=== PATIENT | male | born 1935 | race Caucasian/White ===

== ENCOUNTER → 2016-10-11 | Outpatient (CLI) | payer OTHER ==
[~2016-10-11] MED LIST: ASPI81TA28 PO; ATOR-26 PO; CLOP1TAB15 PO; CPR250 PO; GLIP10TA10 PO; HYDR-4380 PO; METF-384 PO; METO50TA7 PO; PHEN-1042 PO
[2016-10-11 15:38] LABS: ALT/SGPT 150 U/L (12-78); BLOOD UREA NITROGEN 30 mg/dl (7-18); BUN/CREATININE RATIO 21.1 (10-20); CALCIUM 8.9 mg/dl (8.5-10.1); CARBON DIOXIDE 24 mmol/L (21-32); CHLORIDE 101 mmol/L (98-107); GLUCOSE 220 mg/dl (70-99); POTASSIUM 4.7 mmol/L (3.5-5.1); SODIUM 137 mmol/L (136-145)
[2016-10-11 15:43] LABS: ALKALINE PHOSPHATASE 82 U/L (45-117); AST/SGOT 193 U/L (15-37); PROSTATE SPECIFIC ANTIGEN 0.542 ng/ml (0.000-4.000)
== END | disposition home or self-care (01) ==
LOC: C.LAB 14:07
PROVIDERS: ATTEND Urology
DX: N20.1 Calculus of ureter (principal); N39.0 Urinary tract infection, site not specified; N40.1 Benign prostatic hyperplasia with lower urinary tract symptoms

== ENCOUNTER 2017-03-31 11:07 | Observation (INO) | payer OTHER ==
[~2017-03-31] VITALS: Ht 182.9 cm; Wt 81.8 kg
[2017-03-31] VITALS (7 sets, daily range): BP systolic 134–163; BP diastolic 76–89; PULSE 75–94; TEMP 36.3–36.6; O2SAT 93–96; Ht 182.9 cm; Wt 81.8 kg
[~2017-03-31 11:07] MED LIST changes: -CPR250 PO; -PHEN-1042 PO
[2017-03-31] MEDS ORDERED: ONDANSETRON INJ 2 MG/ML 2 ML VIAL IV STA (12:42)
[2017-03-31] MEDS ORDERED: SODIUM CHLORIDE 0.9% 1000ML 1,000 ML IV STA (12:42)
[2017-03-31 12:59] LABS: BASO % 0.3 %; BASO ABS # 0.03 K/uL (0-0.2); COMPLETE YES; EOS % 1.1 %; HEMATOCRIT 43.1 % (42-52); IG% 0.9 %; LYMPH % 9.4 %; LYMPH ABS # 0.82 K/uL (1.2-3.4); MEAN CELL VOLUME 93.3 fL (80-100); MEAN CORPUSCULAR HEMOGLOBIN 32.9 pg (25-34); MEAN CORPUSCULAR HGB CONC 35.3 g/dl (32-36); MEAN PLATELET VOLUME 10.1 fL (7.4-10.4); MONO % 14.4 %; NEUT % 73.9 %; PLATELET COUNT 309 K/uL (130-400); RED BLOOD COUNT 4.62 M/uL (4.7-6.1); WHITE BLOOD COUNT 8.74 K/uL (4.8-10.8)
[2017-03-31 13:09] LABS: ALT/SGPT 48 U/L (12-78); AST/SGOT 45 U/L (15-37); BLOOD UREA NITROGEN 33 mg/dl (7-18); BUN/CREATININE RATIO 13.6 (10-20); CALCIUM 9.1 mg/dl (8.5-10.1); CARBON DIOXIDE 23 mmol/L (21-32); CHLORIDE 102 mmol/L (98-107); GLUCOSE 119 mg/dl (70-99); POTASSIUM 4.7 mmol/L (3.5-5.1); SODIUM 133 mmol/L (136-145)
[2017-03-31 13:12] LABS: ALKALINE PHOSPHATASE 70 U/L (45-117)
[2017-03-31 13:31] LABS: URINE APPEARANCE CLEAR (CLEAR); URINE BILIRUBIN NEG (NEG); URINE COLOR DK YELLOW; URINE NITRITE POS (NEG); URINE SPECIFIC GRAVITY 1.019 (1.000-1.030); UROBILINOGEN NEG (NEG); ZZUR CULT IF INDIC CLEAN CATCH NO
--- NOTE | 2017-03-31 13:32 | DIAGNOSTIC IMAGING REPORT ---
[facility] CLINICAL HISTORY: Right flank pain. FINDINGS: 3 AP supine abdominal radiographs are compared to study dated 02/09/2016 and correlated with abdominal CT dated 03/18/2016. There is a nonobstructed abdominal bowel gas pattern noting moderate colonic fecal retention. There is no radiographic evidence of nephrolithiasis. A 3.3 cm calcified structure in the left upper quadrant is unchanged and likely represents a calcified peritoneal nodule when correlated with the 03/18/2016 CT scan. The skeletal structures are osteopenic. Moderate lumbosacral spondylosis is observed. Sclerotic change is noted in the pubic symphysis. A left hip arthroplasty is in place. IMPRESSION: 1. There is no radiographic evidence of nephrolithiasis. 2. Moderate constipation. Electronically signed by: Tyrell Pinto M.D. 03/31/2017 1:31 PM Dictated Date/Time: 03/31/2017 1:29 PM
[2017-03-31 13:33] LABS: MANUAL MICROSCOPIC REQUIRED? NO; REVIEW REQ? NO
--- NOTE | 2017-03-31 14:01 | DIAGNOSTIC IMAGING REPORT ---
ULTRASOUND KIDNEYS AND BLADDER CLINICAL HISTORY: Right flank pain. Reported history of ureteral calculus. COMPARISON STUDY: Abdominal CT dated 03/16/2016. TECHNIQUE: Real-time, grayscale, and color flow sonography of the kidneys and bladder is performed. Images are reviewed in the transverse and longitudinal planes. FINDINGS: Kidneys: The kidneys history cortical atrophy. The right kidney measures 12.6 x 7.0 x 6.8 cm and the left kidney measures 12.1 x 5.9 x 7.1 cm. There is moderate right-sided hydronephrosis. No left-sided hydronephrosis is seen. A 10 mm echogenic shadowing focus in the upper pole of the left kidney likely represents a nonobstructing calculus. There is no sonographic evidence of contour deforming renal mass lesion. No perinephric fluid is identified. Bladder: The bladder is decompressed and grossly unremarkable. Only the left ureteral jet was seen. IMPRESSION: 1. There is moderate right-sided hydronephrosis. A right ureteral jet was not seen, and this is likely related to an obstructing ureteral calculus. The stone was not visualized by ultrasound. 2. There is no left-sided hydronephrosis. 3. A nonobstructing left renal calculus is suggested. 4. The bladder was decompressed and grossly unremarkable. Electronically signed by: Tyrell Pinto M.D. 03/31/2017 1:59 PM Dictated Date/Time: 03/31/2017 1:52 PM
--- NOTE | 2017-03-31 14:36 | EMERGENCY ROOM VISIT NOTE ---
History Report prepared by Nelia: Tracy Ulloa Under the Supervision of: Dr. Mariia Mercer M.D. First contact with patient: 12:37 Chief Complaint: KIDNEY STONE Stated Complaint: KIDNEY STONES History of Present Illness The patient is a 81 year old male who presents to the Emergency Room with complaints of worsening right sided abdominal pain secondary to kidney stones for the past 5 days. The patient was evaluated in the ER at [facility] 5 days ago. He had a CT scan at this time and was diagnosed with bilateral kidney stones and a kidney stone in his bladder. He was discharged home with oral pain medication, which he states has not been helping. The patient has had intermittent nausea and vomiting for the past 3 days. He reports pain in his right flank that radiates into his right side and right abdomen. He rates his current pain as a 5/10 in severity. Laying still helps to alleviate some of his pain. He called his urologist this morning with his symptoms and was told to come to the ED for further evaluation. The patient denies any fevers. Source of History: patient Onset: 5 days ago Position: abdomen (right sided) Symptom Intensity: 5/10 Timing: worsening Modifying Factors (Relieving): other (laying still) Associated Symptoms: + nausea, + vomiting, No fevers Review of Systems See HPI for pertinent positives & negatives. A total of 10 systems reviewed and were otherwise negative. Past Medical & Surgical Medical Problems: (1) Gout, unspecified (2) Type 2 diabetes mellitus without complications Family History Diabetes mellitus Kidney disease Kidney stones Social History Smoking Status: Never Smoker Smokeless Tobacco Use: No Alcohol Use: none Marital Status: Housing Status: lives with significant other Occupation Status: retired Current/Historical Medications Scheduled Aspirin (Aspirin Ec), 81 MG PO QAM Ciprofloxacin (Ciprofloxacin HCl), 250 MG PO BID Clopidogrel (Plavix), 75 MG PO QAM Glipizide (Glipizide), 1 TAB PO DAILY Scheduled PRN Phenazopyridine HCl (Phenazopyridine HCl), 100 MG PO TID PRN for Bladder pain Allergies Coded Allergies: No Known Allergies (Unverified , 07/08/16) Physical Exam Vital Signs Date Time Temp Pulse Resp B/P (MAP) Pulse Ox O2 Delivery O2 Flow Rate FiO2 03/31/17 14:23 78 18 134/75 96 Room Air 03/31/17 12:57 80 18 125/74 95 Room Air 03/31/17 11:26 36.4 89 20 112/72 95 Room Air Physical Exam Vital signs reviewed. General: Well-appearing elderly male, in no significant distress. HEENT: No scleral icterus, PERRLA, neck supple. Atraumatic. Cardiovascular: Regular rate and rhythm, no extra sounds. Pulmonary: Clear to auscultation bilaterally, normal work of breathing. Abdomen: Soft, nontender, nondistended, positive bowel sounds. No CVA tenderness Musculoskeletal: Atraumatic, no peripheral edema. Neurologic: Patient awake alert and oriented x 3, full strength in all 4 extremities. Cranial nerves 2 through 12 grossly intact. Skin: Warm, dry, no rash Medical Decision & Procedures ER Provider Diagnostic Interpretation: Radiology results as stated below per my review and radiologist interpretation: ULTRASOUND KIDNEYS AND BLADDER CLINICAL HISTORY: Right flank pain. Reported history of ureteral calculus. COMPARISON STUDY: Abdominal CT dated 03/16/2016. TECHNIQUE: Real-time, grayscale, and color flow sonography of the kidneys and bladder is performed. Images are reviewed in the transverse and longitudinal planes. FINDINGS: Kidneys: The kidneys history cortical atrophy. The right kidney measures 12.6 x 7.0 x 6.8 cm and the left kidney measures 12.1 x 5.9 x 7.1 cm. There is moderate right-sided hydronephrosis. No left-sided hydronephrosis is seen. A 10 mm echogenic shadowing focus in the upper pole of the left kidney likely represents a nonobstructing calculus. There is no sonographic evidence of contour deforming renal mass lesion. No perinephric fluid is identified. Bladder: The bladder is decompressed and grossly unremarkable. Only the left ureteral jet was seen. IMPRESSION: 1. There is moderate right-sided hydronephrosis. A right ureteral jet was not seen, and this is likely related to an obstructing ureteral calculus. The stone was not visualized by ultrasound. 2. There is no left-sided hydronephrosis. 3. A nonobstructing left renal calculus is suggested. 4. The bladder was decompressed and grossly unremarkable. Electronically signed by: Tyrell Pinto M.D. 03/31/2017 1:59 PM Dictated Date/Time: 03/31/2017 1:52 PM [facility] CLINICAL HISTORY: Right flank pain. FINDINGS: 3 AP supine abdominal radiographs are compared to study dated 02/09/2016 and correlated with abdominal CT dated 03/18/2016. There is a nonobstructed abdominal bowel gas pattern noting moderate colonic fecal retention. There is no radiographic evidence of nephrolithiasis. A 3.3 cm calcified structure in the left upper quadrant is unchanged and likely represents a calcified peritoneal nodule when correlated with the 03/18/2016 CT scan. The skeletal structures are osteopenic. Moderate lumbosacral spondylosis is observed. Sclerotic change is noted in the pubic symphysis. A left hip arthroplasty is in place. IMPRESSION: 1. There is no radiographic evidence of nephrolithiasis. 2. Moderate constipation. Electronically signed by: Tyrell Pinto M.D. 03/31/2017 1:31 PM Dictated Date/Time: 03/31/2017 1:29 PM Laboratory Results Test 03/31/17 11:55 03/31/17 13:10 Immature Granulocyte % (Auto) 0.9 % White Blood Count 8.74 K/uL (4.8-10.8) Red Blood Count 4.62 M/uL (4.7-6.1) Hemoglobin 15.2 g/dL (14.0-18.0) Hematocrit 43.1 % (42-52) Mean Corpuscular Volume 93.3 fL (80-100) Mean Corpuscular Hemoglobin 32.9 pg (25-34) Mean Corpuscular Hemoglobin Concent 35.3 g/dl (32-36) Platelet Count 309 K/uL (130-400) Mean Platelet Volume 10.1 fL (7.4-10.4) Neutrophils (%) (Auto) 73.9 % Lymphocytes (%) (Auto) 9.4 % Monocytes (%) (Auto) 14.4 % Eosinophils (%) (Auto) 1.1 % Basophils (%) (Auto) 0.3 % Neutrophils # (Auto) 6.45 K/uL (1.4-6.5) Lymphocytes # (Auto) 0.82 K/uL (1.2-3.4) Monocytes # (Auto) 1.26 K/uL (0.11-0.59) Eosinophils # (Auto) 0.10 K/uL (0-0.5) Basophils # (Auto) 0.03 K/uL (0-0.2) Immature Granulocyte # (Auto) 0.08 K/uL (0.00-0.02) Total Bilirubin 0.7 mg/dl (0.2-1) Direct Bilirubin 0.2 mg/dl (0-0.2) Aspartate Amino Transf (AST/SGOT) 45 U/L (15-37) Alanine Aminotransferase (ALT/SGPT) 48 U/L (12-78) Alkaline Phosphatase 70 U/L (45-117) Total Protein 7.4 gm/dl (6.4-8.2) Albumin 3.4 gm/dl (3.4-5.0) Urine Color DK YELLOW Urine Appearance CLEAR (CLEAR) Urine pH 5.0 (4.5-7.5) Urine Specific [place] 1.019 (1.000-1.030) Urine Protein TRACE (NEG) Urine Glucose (UA) 2+ (NEG) Urine Ketones NEG (NEG) Urine Occult Blood 1+ (NEG) Urine Nitrite POS (NEG) Urine Bilirubin NEG (NEG) Urine Urobilinogen NEG (NEG) Urine Leukocyte Esterase NEG (NEG) Urine WBC (Auto) 1-5 /hpf (0-5) Urine RBC (Auto) 0-4 /hpf (0-4) Urine Hyaline Casts (Auto) 1-5 /lpf (0-5) Urine Epithelial Cells (Auto) 5-10 /lpf (0-5) Urine Bacteria (Auto) NEG (NEG) Laboratory results per my review. Medications Administered Medications (Trade) Dose Ordered Sig/Juanpablo Route Start Time Stop Time Status Last Admin Dose Admin Sodium Chloride 1,000 ml @ 125 mls/hr Q8H STAT IV 03/31/17 12:42 03/31/17 17:53 DC 03/31/17 12:59 125 MLS/HR Ondansetron HCl (Zofran Inj) 4 mg NOW STAT IV 03/31/17 12:42 03/31/17 12:44 DC 03/31/17 12:54 4 MG ED Course 1237: Past medical records reviewed. The patient was evaluated in room B2. A complete history and physical examination was performed. 1242: Zofran 4 mg IV, NSS 1000 ml @ 125 mls/hr IV 1411: I reassessed the patient at this time. He is feeling better and resting comfortably. I discussed the results and treatment plan with the patient. I answered all pertaining questions that he had. He expressed understanding and verbalized agreement. 1420: I spoke with Dr. Nunez. We discussed the patients case. The patient will be evaluated by the [facility]ist Group for further management. Medical Decision Differential diagnosis: Etiologies such as renal colic, appendicitis, diverticulitis, mesenteric ischemia, aortic pathology, infections, inflammatory bowel disease, PUD, biliary pathology, UTI, as well as others were entertained. This patient was evaluated and appeared to be in no significant distress. IV access was obtained and laboratory work was drawn. Patient was hydrated with normal saline solution, given IV Zofran for nausea. Patient has had some ongoing discomfort and will require urologic evaluation. He does have an acute renal insufficiency. UA is negative for infection. Ultrasound of the retroperitoneum reveals moderate right-sided hydronephrosis. CT scan of the abdomen and pelvis performed as an outpatient at another facility earlier in the week reveals an 8 mm calculus. This is not identified on ultrasound today however the absence of a ureteral jet is suspicious for a stone. Given the above findings, the patient will be evaluated by the hospitalist service for admission and urologic evaluation. Medication Reconcilliation Current Medication List: was personally reviewed by me Blood Pressure Screening Patient's blood pressure: Normal blood pressure Consults Time Called: 1417 Consulting Physician: Dr. Nunez Returned Call: [address] Nunez. We discussed the patients case. The patient will be evaluated by the [facility]ist Group for further management. Impression Primary Impression: Ureteral calculus Additional Impressions: Urinary tract obstruction by kidney stone Acute renal insufficiency Scribe Attestation The scribe's documentation has been prepared under my direction and personally reviewed by me in its entirety. I confirm that the note above accurately reflects all work, treatment, procedures, and medical decision making performed by me. Departure Information Dispostion Being Evaluated By Hospitalist Prescriptions Phenazopyridine HCl (Phenazopyridine HCl) 100 Mg Tab 100 MG PO TID Y for Bladder pain for 2 Days, #6 TAB Prov: Nickolas Jones MD 04/02/17 Ciprofloxacin (Ciprofloxacin HCl) 250 Mg Tab 250 MG PO BID for 2 Days, #4 TAB Prov: Nickolas Jones MD 04/02/17 Referrals Guillermo Pickens M.D. (PCP) Patient Instructions My [facility] Problem Qualifiers
[2017-03-31] MEDS ORDERED: POLYETHYLENE (MIRALAX) 17 GM PACK PO PRN (15:15)
[2017-03-31] MEDS ORDERED: ONDANSETRON INJ 2 MG/ML 2 ML VIAL IV PRN ×2 (15:15→16:30)
[2017-03-31] MEDS ORDERED: ACETAMINOPHEN 325 MG TAB PO PRN (15:15)
--- NOTE | 2017-03-31 15:37 | Urology Consultation ---
History General Date of Service: Mar 31, 2017. Chief Complaint: Bilateral flank pain Primary Care Physician: Guillermo Pickens M.D. Pt seen a urologist before?: Yes If yes, why?: Dr. Finney for stone, uric acid stone HPI - Stones Number: 4 Size: right 8 mm ureteral stone, Location: left, UPJ Pain: left flank, right flank Patient has: + nausea, + emesis, + gross hematuria, + hydronephrosis Prior stone composition: uric acid Additional Comments: 81 yo male in [facility] ER due to worsening flank pain, left to right over the course of the past month. He notes he has been feeling worse and worse, presented to [facility] ER on Monday. CT scan done at that time shows a R 8 mm UPJ stone and bilateral large renal stones, up to 12 mm in size. His culture at the time also is positive for 100K E. Coli. He was placed on Cipro which he has been taking since Monday. His reports from [facility] are reviewed. He notes he feels relatively well, denies fevers currently. and daughter in room. Imaging Imaging: CT, [facility], Ultrasound Laboratory Last 24 Hours Test 03/31/17 11:55 03/31/17 13:10 White Blood Count 8.74 K/uL Red Blood Count 4.62 M/uL Hemoglobin 15.2 g/dL Hematocrit 43.1 % Mean Corpuscular Volume 93.3 fL Mean Corpuscular Hemoglobin 32.9 pg Mean Corpuscular Hemoglobin Concent 35.3 g/dl Platelet Count 309 K/uL Mean Platelet Volume 10.1 fL Neutrophils (%) (Auto) 73.9 % Lymphocytes (%) (Auto) 9.4 % Monocytes (%) (Auto) 14.4 % Eosinophils (%) (Auto) 1.1 % Basophils (%) (Auto) 0.3 % Neutrophils # (Auto) 6.45 K/uL Lymphocytes # (Auto) 0.82 K/uL Monocytes # (Auto) 1.26 K/uL Eosinophils # (Auto) 0.10 K/uL Basophils # (Auto) 0.03 K/uL RDW Standard Deviation 49.1 fL RDW Coefficient of Variation 14.5 % Immature Granulocyte % (Auto) 0.9 % Immature Granulocyte # (Auto) 0.08 K/uL Sodium Level 133 mmol/L Potassium Level 4.7 mmol/L Chloride Level 102 mmol/L Carbon Dioxide Level 23 mmol/L Anion Gap 8.0 mmol/L Blood Urea Nitrogen 33 mg/dl Creatinine 2.40 mg/dl Estimated GFR () 28.7 Estimated GFR (Non- 24.7 BUN/Creatinine Ratio 13.6 Random Glucose 119 mg/dl Calcium Level 9.1 mg/dl Total Bilirubin 0.7 mg/dl Direct Bilirubin 0.2 mg/dl Aspartate Amino Transf (AST/SGOT) 45 U/L Alanine Aminotransferase (ALT/SGPT) 48 U/L Alkaline Phosphatase 70 U/L Total Protein 7.4 gm/dl Albumin 3.4 gm/dl Urine Color DK YELLOW Urine Appearance CLEAR Urine pH 5.0 Urine Specific [place] 1.019 Urine Protein TRACE Urine Glucose (UA) 2+ Urine Ketones NEG Urine Occult Blood 1+ Urine Nitrite POS Urine Bilirubin NEG Urine Urobilinogen NEG Urine Leukocyte Esterase NEG Urine WBC (Auto) 1-5 /hpf Urine RBC (Auto) 0-4 /hpf Urine Hyaline Casts (Auto) 1-5 /lpf Urine Epithelial Cells (Auto) 5-10 /lpf Urine Bacteria (Auto) NEG Problem List Medical Problems: (1) Acute renal insufficiency Status: Acute (2) Ureteral calculus Status: Acute (3) Urinary tract obstruction by kidney stone Status: Acute Past History BPH, diabetes, diverticulosis, kidney stones, renal disease, urinary tract infection Past Surgical History: colonoscopy, shoulder replacement, THR, ureteral stent, other (hernia repair, shouder surgery, hip surgery) Family History Diabetes mellitus Kidney disease Kidney stones Social History Hx Tobacco Use In Past Year?: No (quit 50 years ago) Smoking: quit greater than 1 year Alcohol: no current use Marital status: Occupation status: retired Allergies Coded Allergies: No Known Allergies (Unverified , 07/08/16) Medications Home Medications: Home Meds and Scripts Medications Dose Route/Sig Max Daily Dose Days Date Category Dose Instructions Glucophage (Metformin Hcl) Unknown Strength Tab 1 Tab PO BID 06/28/16 Reported Glipizide Unknown Strength Tab 1 Tab PO DAILY 06/28/16 Reported Plavix (Clopidogrel Bisulfate) 75 Mg Tab 75 Mg PO QAM 02/04/16 Reported ON HOLD FOR 7 DAYS PRIOR Aspirin Ec (Aspirin) 81 Mg Tab 81 Mg PO QAM 02/04/16 Reported Inpatient Medications: Current Inpatient Medications Medications (Trade) Dose Ordered Sig/Juanpablo Route Start Time Stop Time Status Last Admin Dose Admin Sodium Chloride 1,000 ml @ 125 mls/hr Q8H STAT IV 03/31/17 12:42 03/31/17 20:41 03/31/17 12:59 125 MLS/HR Acetaminophen (Tylenol Tab) 650 mg Q4H PRN PO 03/31/17 15:15 04/30/17 15:14 Polyethylene (Miralax Powder Packet) 17 gm DAILY PRN PO 03/31/17 15:15 04/30/17 15:14 UNV Ondansetron HCl (Zofran Inj) 4 mg Q6H PRN IV 03/31/17 15:15 04/30/17 15:14 UNV Review of Systems Review of Systems Constitutional: No fever, No chills Eyes: No double vision, No eye pain Endocrine: + excessive thirst Gastrointestinal: + abdominal pain, + nausea, + vomiting Cardiovascular: No irregular heartbeat Respiratory: No shortness of breath, No wheezing Skin: No boils, No dry skin Musculoskeletal: + back pain Ears / Nose / Throat: No hearing loss Male : + see HPI, + kidney stones Physical Exam Vital Signs: Vital Signs Past 12 Hours Date Time Temp Pulse Resp B/P (MAP) Pulse Ox O2 Delivery O2 Flow Rate FiO2 03/31/17 14:23 78 18 134/75 96 Room Air 03/31/17 12:57 80 18 125/74 95 Room Air 03/31/17 11:26 36.4 89 20 112/72 95 Room Air Physical Exam: General Appearance: WD/WN, no apparent distress ENT: normal ENT inspection, hearing grossly normal Neck: supple, no adenopathy Respiratory/Chest: no respiratory distress, no accessory muscle use Cardiovascular: no JVD Gastrointestinal: Abdomen: normal abdomen Bladder: normal bladder Renal: cva tenderness (right) Liver: normal liver Spleen: normal spleen Extremities: non-tender Neurologic/Psychiatric: alert, oriented x 3 Skin: normal color Assessment & Plan Assessment & Plan Treatment Planned: cystoscopy w/ stent A/P 81 yo male with renal failure, radiolucent likely uric acid stones, history of UTI. Seen the possibility of an incompletely treated infection as well as his ongoing colic and renal failure, will proceed with a cystoscopy and stent placement for decompression of his right kidney. Despite his complaints of left flank pain, no hydro was present on either CT scan in [facility] per report or on his current renal US. Findings c/w patient and , consent obtained .Will cover with Cipro 200 mg. Will arrange for short term f/u with Dr. Finney in office - will likely need either medical dissolution of his stone or endoscopic management seen the radiolucent nature of his stone. [facility], likely can discharged tomorrow if his Cr improves and he responds clinically.
--- NOTE | 2017-03-31 15:51 | History and Physical ---
History & Physical Date & Time of Service: Mar 31, 2017 at 15:16 Chief Complaint: Kidney Stones Primary Care Physician: Guillermo Pickens M.D. History of Present Illness Source: patient, family, hospital records Patient is a pleasant 81 yo male who presented to the ER today for complaints of right abdominal pain, and nausea/vomiting. He reports his symptoms first began about 1 month ago with left flank pain, but became worse on Monday when he started to have hematuria and stated the pain was worse. He went to the [place] [facility] where they performed a CT abdomen and pelvis which found an 8 mm stone at the right UPJ but no hydronephrosis. He reports he did have painful urination on Monday and Monday, and also felt that his urine stream was getting abruptly cut off and he had difficulty voiding completely, but this issue has not occurred since. He has continued to have N/V since Monday. He states he feels some relief since being in the ER and laying still. 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 He last ate at 7 AM and had emesis of his breakfast right afterwards. Past Medical/Surgical History Medical Problems: (1) Gout, unspecified Status: Resolved (2) Type 2 diabetes mellitus without complications Status: Chronic Family History Diabetes mellitus Kidney disease Kidney stones Social History Smoking Status: Never Smoker Smokeless Tobacco Use: No Alcohol Use: occasionally Marital Status: Housing status: lives with family Occupational Status: employed, retired Allergies Coded Allergies: No Known Allergies (Unverified , 07/08/16) Home Medications Scheduled Aspirin (Aspirin Ec), 81 MG PO QAM Clopidogrel (Plavix), 75 MG PO QAM Glipizide (Glipizide), 1 TAB PO DAILY Metformin Hcl (Glucophage), 1 TAB PO BID Review of Systems Constitutional: No fever, No chills, No sweats, No weight loss, No fatigue Eyes: No worsening of vision, No redness, No discharge, No diplopia ENT: No hearing loss, No nasal symptoms, No sore throat, No tinnitus Respiratory: No cough, No sputum, No shortness of breath, No dyspnea on exertion Cardiovascular: No chest pain, No edema, No claudication, No palpitations Abdomen: + pain, + nausea, + vomiting, No diarrhea Musculoskeletal: No joint pain, No swelling, No calf pain, No problem reported Genitourinary - Male: + hematuria, + dysuria, + urinary frequency, + urinary hesitancy Psychiatric: No depression symptoms, No anxiety, No substance abuse, No problem reported Hematologic / Lymphatic: No problem reported Integumentary: No problem reported Physical Exam Vital Signs Date Time Temp Pulse Resp B/P (MAP) Pulse Ox O2 Delivery O2 Flow Rate FiO2 03/31/17 14:23 78 18 134/75 96 Room Air 03/31/17 12:57 80 18 125/74 95 Room Air 03/31/17 11:26 36.4 89 20 112/72 95 Room Air General Appearance: WD/WN, no apparent distress Head: normocephalic, atraumatic Eyes: PERRL, EOMI, sclerae normal ENT: hearing grossly normal Neck: supple, no JVD, no carotid bruits, trachea midline Respiratory/Chest: chest non-tender, lungs clear, normal breath sounds, no respiratory distress Cardiovascular: regular rate, rhythm, no edema, no JVD, no murmur, normal peripheral pulses Abdomen/GI: normal bowel sounds, non tender, soft, no organomegaly Back: normal range of motion, + right CVA tenderness Extremities/Musculoskelatal: no calf tenderness, normal capillary refill, no pedal edema Neurologic/Psych: no motor/sensory deficits, alert, normal mood/affect, oriented x 3 Skin: normal color, warm/dry, no rash Diagnostics Laboratory Results Results Past 24 Hours Test 03/31/17 11:55 03/31/17 13:10 Range/Units White Blood Count 8.74 4.8-10.8 K/uL Red Blood Count 4.62 4.7-6.1 M/uL Hemoglobin 15.2 14.0-18.0 g/dL Hematocrit 43.1 42-52 % Mean Corpuscular Volume 93.3 80-100 fL Mean Corpuscular Hemoglobin 32.9 25-34 pg Mean Corpuscular Hemoglobin Concent 35.3 32-36 g/dl Platelet Count 309 130-400 K/uL Mean Platelet Volume 10.1 7.4-10.4 fL Neutrophils (%) (Auto) 73.9 % Lymphocytes (%) (Auto) 9.4 % Monocytes (%) (Auto) 14.4 % Eosinophils (%) (Auto) 1.1 % Basophils (%) (Auto) 0.3 % Neutrophils # (Auto) 6.45 1.4-6.5 K/uL Lymphocytes # (Auto) 0.82 1.2-3.4 K/uL Monocytes # (Auto) 1.26 0.11-0.59 K/uL Eosinophils # (Auto) 0.10 0-0.5 K/uL Basophils # (Auto) 0.03 0-0.2 K/uL RDW Standard Deviation 49.1 36.4-46.3 fL RDW Coefficient of Variation 14.5 11.5-14.5 % Immature Granulocyte % (Auto) 0.9 % Immature Granulocyte # (Auto) 0.08 0.00-0.02 K/uL Sodium Level 133 136-145 mmol/L Potassium Level 4.7 3.5-5.1 mmol/L Chloride Level 102 98-107 mmol/L Carbon Dioxide Level 23 21-32 mmol/L Anion Gap 8.0 3-11 mmol/L Blood Urea Nitrogen 33 7-18 mg/dl Creatinine 2.40 0.60-1.40 mg/dl Estimated GFR () 28.7 Estimated GFR (Non- 24.7 BUN/Creatinine Ratio 13.6 10-20 Random Glucose 119 70-99 mg/dl Calcium Level 9.1 8.5-10.1 mg/dl Total Bilirubin 0.7 0.2-1 mg/dl Direct Bilirubin 0.2 0-0.2 mg/dl Aspartate Amino Transf (AST/SGOT) 45 15-37 U/L Alanine Aminotransferase (ALT/SGPT) 48 12-78 U/L Alkaline Phosphatase 70 45-117 U/L Total Protein 7.4 6.4-8.2 gm/dl Albumin 3.4 3.4-5.0 gm/dl Urine Color DK YELLOW Urine Appearance CLEAR CLEAR Urine pH 5.0 4.5-7.5 Urine Specific [place] 1.019 1.000-1.030 Urine Protein TRACE NEG Urine Glucose (UA) 2+ NEG Urine Ketones NEG NEG Urine Occult Blood 1+ NEG Urine Nitrite POS NEG Urine Bilirubin NEG NEG Urine Urobilinogen NEG NEG Urine Leukocyte Esterase NEG NEG Urine WBC (Auto) 1-5 0-5 /hpf Urine RBC (Auto) 0-4 0-4 /hpf Urine Hyaline Casts (Auto) 1-5 0-5 /lpf Urine Epithelial Cells (Auto) 5-10 0-5 /lpf Urine Bacteria (Auto) NEG NEG Impression Assessment and Plan RIGHT HYDRONEPHROSIS/RIGHT UPJ STONE: -per CT scan at [facility], 8 mm stone was in the UPJ; US here shows moderate right hydronephrosis and lack of ureteral jet on the right -US also mentions left non obstructing calculi -Urology consulted and patient to have stent placed this evening -pain control -IV fluids -strain urine for stone -anti-emetics PRN -NPO -has prior hx of uric acid stones (2016) but has not been on allopurinol recently -obtain urine culture, start ceftriaxone if indicated CAD: -no prior records, patient states he has left heart stent placed 2 years ago -continued on ASA and Plavix -obtain outpatient records from Dr. Pickens -no acute issues DM TYPE II: -hold metformin and glipizide -cover with correction scale insulin -check HbA1c in AM ANDRÉS: -Cr 2.4, last baseline from a year ago is 1.4 -monitor -IV fluids Level of Care Med/Surg Resuscitation Status FULL RESUSCITATION VTE Prophylaxis VTE Risk Assessment Done? Y/N: Yes Risk Level: Moderate Given or contraindicated: SCD's
[2017-03-31] MEDS ORDERED: CIPROFLOXACIN 400MG / 200ML D5W IV STA (15:52)
[2017-03-31] MEDS ORDERED: IV FLUIDS COMPLETED PRN (16:00)
[2017-03-31] MEDS ORDERED: CIPROFLOXACIN 200MG / D5W IV SCH (16:00)
[2017-03-31] MEDS ORDERED: FENTANYL CITRATE INJ 50 MCG/1 ML 2 ML VIAL ONE (16:08)
[2017-03-31] MEDS ORDERED: MIDAZOLAM HCL 1 MG/ML 2ML VIAL ONE (16:08)
[2017-03-31] MEDS ORDERED: CONRAY 30% 150ML BOTTLE ONE (16:21)
[2017-03-31] MEDS ORDERED: EpHEDrine SULFATE INJ 50 MG/ML AMP IV PRN (16:30)
[2017-03-31] MEDS ORDERED: FENTANYL CITRATE INJ 50 MCG/1 ML 2 ML VIAL IV PRN (16:30)
[2017-03-31] MEDS ORDERED: ATROPINE SULFATE 0.1 MG/ML 5ML SYR IV PRN (16:30)
--- NOTE | 2017-03-31 17:00 | [facility] Post Operative Brief Note ---
Immediate Operative Summary Operative Date Mar 31, 2017. 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
--- NOTE | 2017-03-31 17:03 | [facility] Operative Report ---
Operative Report Operative Date Mar 31, 2017. Pre-Operative Diagnosis R hydronephrosis, renal failure and stone Post-Operative Diagnosis Same Procedure(s) Performed Cystoscopy, right RPG, right ureteral stent placement Surgeon Darell Hanson Yardage Control Operator Forming Surgeon(s) NA Estimated Blood Loss NA Findings Radiolucent R midureteral stone, good stent position after completion of case Specimens NA Drains 6 fr 26 cm R firm Cook JJ stent Anesthesia MAC Complication(s) None Disposition Recovery Room / PACU Indications 81 yo male with renal failure, radiolucent stones, R hydro, UTI history and colic for R ureteral stent. Please see consult. Description of Procedure Patient properly identified, covered with Cipro 200 mg, brought into room after identification of consent in the chart. Time out done, MAC initiated, prepped and draped in dorsal lithotomy. 22 fr rigid cystoscope passed into bladder, grade 2-3 trabeculation noted, small mobile soft stones, obstructive lateral prostatic lobes. UOs appreciated, R UO cannulated using a 5 fr open ended catheter and RPG performed - normal distal ureter, filling defect in midureter with proximal fullness c/w obstructing radiolucent stone. Angled sensor wire passed proximally followed by a 6 fr 26 JJ firm Cook stent in good position with hydronephrotic drip. MAC reversed, transferred to recovery in stable condition. I attest to the content of the Intraoperative Record and any orders documented therein. Any exceptions are noted below.
[2017-03-31] MEDS ORDERED: LIDOCAINE HCL 2% 2 ML VIAL (20MG/ML) ONE (17:04)
[2017-03-31] MEDS ORDERED: PROPOFOL IV EMULSION 10 MG/ML 20 ML VIAL IV ONE (17:04)
[2017-03-31] MEDS ORDERED: PHENAZOPYRIDINE HCL 100 MG TAB PO PRN (17:15)
--- NOTE | 2017-03-31 17:15 | Anesthesiology Progress Note ---
Anesthesia Post Op Note Date & Time Mar 31, 2017 at 17:15 Vital Signs Pain Intensity: 0 Vital Signs Past 12 Hours Date Time Temp Pulse Resp B/P (MAP) Pulse Ox O2 Delivery O2 Flow Rate FiO2 03/31/17 17:05 71 18 114/74 96 Room Air 03/31/17 16:55 36.9 74 18 115/85 100 Mask 10 03/31/17 16:08 36.9 85 16 146/81 (102) 95 Room Air 03/31/17 16:00 90 18 142/84 95 03/31/17 14:23 78 18 134/75 96 Room Air 03/31/17 12:57 80 18 125/74 95 Room Air 03/31/17 11:26 36.4 89 20 112/72 95 Room Air Notes Mental Status: alert / awake / arousable, participated in evaluation Pt Amnestic to Procedure: Yes Nausea / Vomiting: adequately controlled Pain: adequately controlled Airway Patency, RR, SpO2: stable & adequate BP & HR: stable & adequate Hydration State: stable & adequate Anesthetic Complications: no major complications apparent
[2017-03-31] MEDS ORDERED: DEXTROSE 50% 50 ML SYR IV PRN (21:00)
[2017-03-31] MEDS ORDERED: GLUCOSE 40% GEL 15 GM TUBE PO PRN (21:00)
[2017-03-31] MEDS: INSULIN ASPART 100 UNITS/ML 3 ML PEN SC SCH (21:00)
[2017-03-31] MEDS ORDERED: GLUCOSE 10 TABS/TUBE PO PRN (21:00)
[2017-03-31] MEDS ORDERED: GLUCAGON FOR INJ 1 MG VIAL SQ PRN (21:00)
--- NOTE | 2017-03-31 22:03 | DIAGNOSTIC IMAGING REPORT ---
RETROGRADE INCLUDES KUB HISTORY: R KIDNEY STONE FLUOROSCOPY TIME: 55 seconds FINDINGS: 3 fluoroscopic spot images were submitted for review. Initial images demonstrate retrograde opacification of the right ureter. Follow by placement of a guidewire and a right ureteral stent. Only the proximal portion of the right ureteral stent was identified. IMPRESSION: Fluoroscopy provided for right ureteral stent placement.. Electronically signed by: Ryley Ggae M.D. 03/31/2017 10:01 PM Dictated Date/Time: 03/31/2017 10:00 PM
[2017-04-01 03:36] VITALS: BP 114/72; PULSE 78; TEMP 36.8; O2SAT 95
[2017-04-01 05:56] LABS: HEMATOCRIT 40.3 % (42-52); MEAN CELL VOLUME 94.4 fL (80-100); MEAN CORPUSCULAR HEMOGLOBIN 31.9 pg (25-34); MEAN CORPUSCULAR HGB CONC 33.7 g/dl (32-36); MEAN PLATELET VOLUME 10.1 fL (7.4-10.4); PLATELET COUNT 272 K/uL (130-400); RED BLOOD COUNT 4.27 M/uL (4.7-6.1); WHITE BLOOD COUNT 6.48 K/uL (4.8-10.8)
[2017-04-01 06:24] LABS: BUN/CREATININE RATIO 14.8 (10-20); CALCIUM 8.5 mg/dl (8.5-10.1); CREATININE 2.3 mg/dl (0.60-1.40); POTASSIUM 4.2 mmol/L (3.5-5.1)
[2017-04-01 07:45] VITALS: O2SAT 94
[2017-04-01 08:07] VITALS: BP 134/82; PULSE 71; TEMP 36.6; O2SAT 94
[2017-04-01] MEDS: ASPIRIN 81 MG ECTAB PO SCH (08:30)
[2017-04-01] MEDS: INSULIN ASPART 100 UNITS/ML 3 ML PEN SC SCH ×4 (08:31→21:38)
[2017-04-01] MEDS ORDERED: CIPROFLOXACIN 250 MG TAB PO ONE (10:20)
[2017-04-01] MEDS: SODIUM CHLORIDE 0.9% 1000ML 1,000 ML IV SCH ×2 (10:30→22:27)
--- NOTE | 2017-04-01 10:52 | Progress Note ---
Subjective Date of Service: Apr 01, 2017. Subjective Pt evaluation today including: conversation w/ patient, physical exam, chart review, lab review, review of inpatient medication list Pain: Denies PO Intake: Shahida reg diet Voiding: no voiding problems 81 yo male with a history of renal failure, uric acid stones, UTI and colic POD# 1 s/p acute ureteral stent placement. He is feeling improved, no colic at this time, shahida PO and voiding well. He denies fevers or chills. Problem List Medical Problems: (1) Acute renal insufficiency Status: Acute (2) Ureteral calculus Status: Acute (3) Urinary tract obstruction by kidney stone Status: Acute Review of Systems Constitutional: No fever, No chills Eyes: No worsening of vision ENT: No hearing loss Respiratory: No wheezing, No shortness of breath Cardiac: No chest pain Abdomen: No pain, No nausea, No vomiting Male : + see HPI Neurologic: No memory loss, No paralysis Psychiatric: No depression symptoms Endo: No fatigue, No excessive thirst Skin: No new/changing skin lesions Objective Vital Signs Date Time Temp Pulse Resp B/P (MAP) Pulse Ox O2 Delivery O2 Flow Rate FiO2 04/01/17 08:07 36.6 71 18 134/82 (99) 94 Room Air 04/01/17 07:45 94 Room Air 04/01/17 03:36 36.8 78 16 114/72 (86) 95 Room Air 03/31/17 23:39 36.5 78 18 139/81 (100) 95 Room Air 03/31/17 23:20 Room Air 03/31/17 20:30 36.3 79 18 135/78 (97) 93 Room Air 03/31/17 19:31 36.4 94 18 134/76 (95) 93 Room Air 03/31/17 19:26 36.6 75 16 139/88 93 Room Air 03/31/17 18:34 36.4 84 18 157/84 (108) 95 Room Air 03/31/17 18:12 83 16 163/89 (113) 95 Room Air 03/31/17 17:30 36.6 75 16 139/88 (105) 96 Room Air 03/31/17 17:30 96 Room Air 03/31/17 17:15 36.9 74 18 127/71 98 Room Air 03/31/17 17:05 71 18 114/74 96 Room Air 03/31/17 16:55 36.9 74 18 115/85 100 Mask 10 03/31/17 16:08 36.9 85 16 146/81 (102) 95 Room Air 03/31/17 16:00 90 18 142/84 95 03/31/17 14:23 78 18 134/75 96 Room Air 03/31/17 12:57 80 18 125/74 95 Room Air 03/31/17 11:26 36.4 89 20 112/72 95 Room Air Physical Exam General Appearance: WD/WN, no apparent distress ENT: normal ENT inspection Neck: supple, no adenopathy Respiratory/Chest: no respiratory distress, no accessory muscle use Cardiovascular: no JVD Abdomen: non tender, soft Extremities: no pedal edema, no calf tenderness Neurologic/Psychiatric: alert, oriented x 3 Skin: normal color Lymphatic: no adenopathy Laboratory Results Last 24 Hours Test 03/31/17 11:55 03/31/17 13:10 03/31/17 17:04 03/31/17 20:59 White Blood Count 8.74 K/uL Red Blood Count 4.62 M/uL Hemoglobin 15.2 g/dL Hematocrit 43.1 % Mean Corpuscular Volume 93.3 fL Mean Corpuscular Hemoglobin 32.9 pg Mean Corpuscular Hemoglobin Concent 35.3 g/dl Platelet Count 309 K/uL Mean Platelet Volume 10.1 fL Neutrophils (%) (Auto) 73.9 % Lymphocytes (%) (Auto) 9.4 % Monocytes (%) (Auto) 14.4 % Eosinophils (%) (Auto) 1.1 % Basophils (%) (Auto) 0.3 % Neutrophils # (Auto) 6.45 K/uL Lymphocytes # (Auto) 0.82 K/uL Monocytes # (Auto) 1.26 K/uL Eosinophils # (Auto) 0.10 K/uL Basophils # (Auto) 0.03 K/uL RDW Standard Deviation 49.1 fL RDW Coefficient of Variation 14.5 % Immature Granulocyte % (Auto) 0.9 % Immature Granulocyte # (Auto) 0.08 K/uL Sodium Level 133 mmol/L Potassium Level 4.7 mmol/L Chloride Level 102 mmol/L Carbon Dioxide Level 23 mmol/L Anion Gap 8.0 mmol/L Blood Urea Nitrogen 33 mg/dl Creatinine 2.40 mg/dl Estimated GFR () 28.7 Estimated GFR (Non- 24.7 BUN/Creatinine Ratio 13.6 Random Glucose 119 mg/dl Calcium Level 9.1 mg/dl Total Bilirubin 0.7 mg/dl Direct Bilirubin 0.2 mg/dl Aspartate Amino Transf (AST/SGOT) 45 U/L Alanine Aminotransferase (ALT/SGPT) 48 U/L Alkaline Phosphatase 70 U/L Total Protein 7.4 gm/dl Albumin 3.4 gm/dl Urine Color DK YELLOW Urine Appearance CLEAR Urine pH 5.0 Urine Specific [place] 1.019 Urine Protein TRACE Urine Glucose (UA) 2+ Urine Ketones NEG Urine Occult Blood 1+ Urine Nitrite POS Urine Bilirubin NEG Urine Urobilinogen NEG Urine Leukocyte Esterase NEG Urine WBC (Auto) 1-5 /hpf Urine RBC (Auto) 0-4 /hpf Urine Hyaline Casts (Auto) 1-5 /lpf Urine Epithelial Cells (Auto) 5-10 /lpf Urine Bacteria (Auto) NEG Bedside Glucose 130 mg/dl 157 mg/dl Test 04/01/17 04:54 04/01/17 08:31 White Blood Count 6.48 K/uL Red Blood Count 4.27 M/uL Hemoglobin 13.6 g/dL Hematocrit 40.3 % Mean Corpuscular Volume 94.4 fL Mean Corpuscular Hemoglobin 31.9 pg Mean Corpuscular Hemoglobin Concent 33.7 g/dl RDW Standard Deviation 49.1 fL RDW Coefficient of Variation 14.5 % Platelet Count 272 K/uL Mean Platelet Volume 10.1 fL Sodium Level 137 mmol/L Potassium Level 4.2 mmol/L Chloride Level 105 mmol/L Carbon Dioxide Level 25 mmol/L Anion Gap 7.0 mmol/L Blood Urea Nitrogen 34 mg/dl Creatinine 2.30 mg/dl Est Creatinine Clear Calc Drug Dose 28.6 ml/min Estimated GFR () 30.2 Estimated GFR (Non- 26.0 BUN/Creatinine Ratio 14.8 Random Glucose 111 mg/dl Calcium Level 8.5 mg/dl Bedside Glucose 128 mg/dl Assessment and Plan A/P 81 yo male POD#1 s/p acute cysto, R stent Patient with recent positive UC&S and question of an element of urosepsis would continue to cover with antibiotics. Cipro PO ordered. Cr minimally improved today. Fluids ordered. Consider nephrology input if he fails to improve further after stent placement. Would monitor until it is more clear that his renal function will normalize. Outpatient f/u for definitive stone management. Thank you for allowing us to participate in this patient's acute care. Will follow. Discharge planning: home
[2017-04-01 15:02] VITALS: BP 127/74; PULSE 85; TEMP 36.3; O2SAT 96
--- NOTE | 2017-04-01 17:07 | Progress Note ---
Internal Med Progress Note Date of Service: Apr 01, 2017. Provider Documentation: SUBJECTIVE: resting comfortably gets pain in the back once a while afebrile no nausea no sob OBJECTIVE: Vital Signs-as noted below Exam: General-alert and oriented. Not in distress ENT-Normal hearing Neck-no neck masses supple Lungs-cta b/l no wheezing no crackles present Heart-s1 and s2 heard regular rate and rhythm no murmurs Abdomen-soft bowel sounds present non tender no distension Extremities- no erythema no edema Neuro-alert and oriented moves extremities Lab data as noted below. ASSESSMENT & PLAN: RIGHT HYDRONEPHROSIS/RIGHT UPJ STONE: s/p cystoscopy and stent placement on [facility] urology on board CAD: As per h and p:-no prior records, patient states he has left heart stent placed 2 years ago on ASA and Plavix stable DM TYPE II: Holding metformin and glipizide ON ISS Will monitor ANDRÉS: Cr 2.4, last baseline from a year ago is 1.4 cr 2.3 today on fluids f/u labs in am. DVT PROPHYLAXIS scds DISPOSITION to be determined Vital Signs: Date Time Temp Pulse Resp B/P (MAP) Pulse Ox O2 Delivery O2 Flow Rate FiO2 04/01/17 15:02 36.3 85 18 127/74 (91) 96 Room Air 04/01/17 08:07 36.6 71 18 134/82 (99) 94 Room Air 04/01/17 07:45 94 Room Air 04/01/17 03:36 36.8 78 16 114/72 (86) 95 Room Air 03/31/17 23:39 36.5 78 18 139/81 (100) 95 Room Air 03/31/17 23:20 Room Air 03/31/17 20:30 36.3 79 18 135/78 (97) 93 Room Air 03/31/17 19:31 36.4 94 18 134/76 (95) 93 Room Air 03/31/17 19:26 36.6 75 16 139/88 93 Room Air 03/31/17 18:34 36.4 84 18 157/84 (108) 95 Room Air 03/31/17 18:12 83 16 163/89 (113) 95 Room Air 03/31/17 17:30 36.6 75 16 139/88 (105) 96 Room Air 03/31/17 17:30 96 Room Air 03/31/17 17:15 36.9 74 18 127/71 98 Room Air 03/31/17 17:05 71 18 114/74 96 Room Air Lab Results: Results Past 24 Hours Test 03/31/17 17:04 03/31/17 20:59 04/01/17 04:54 04/01/17 08:31 Range/Units Bedside Glucose 130 157 128 70-99 mg/dl White Blood Count 6.48 4.8-10.8 K/uL Red Blood Count 4.27 4.7-6.1 M/uL Hemoglobin 13.6 14.0-18.0 g/dL Hematocrit 40.3 42-52 % Mean Corpuscular Volume 94.4 80-100 fL Mean Corpuscular Hemoglobin 31.9 25-34 pg Mean Corpuscular Hemoglobin Concent 33.7 32-36 g/dl RDW Standard Deviation 49.1 36.4-46.3 fL RDW Coefficient of Variation 14.5 11.5-14.5 % Platelet Count 272 130-400 K/uL Mean Platelet Volume 10.1 7.4-10.4 fL Sodium Level 137 136-145 mmol/L Potassium Level 4.2 3.5-5.1 mmol/L Chloride Level 105 98-107 mmol/L Carbon Dioxide Level 25 21-32 mmol/L Anion Gap 7.0 3-11 mmol/L Blood Urea Nitrogen 34 7-18 mg/dl Creatinine 2.30 0.60-1.40 mg/dl Est Creatinine Clear Calc Drug Dose 28.6 ml/min Estimated GFR () 30.2 Estimated GFR (Non- 26.0 BUN/Creatinine Ratio 14.8 10-20 Random Glucose 111 70-99 mg/dl Calcium Level 8.5 8.5-10.1 mg/dl Test 04/01/17 11:56 04/01/17 16:32 Range/Units Bedside Glucose 115 114 70-99 mg/dl Microbiology Results 04/01/17 Urine Culture, Received Pending
[2017-04-01] MEDS: CIPROFLOXACIN 250 MG TAB PO SCH (21:37)
[2017-04-01 22:43] VITALS: BP 146/72; PULSE 79; TEMP 36.9; O2SAT 97
[2017-04-02 07:15] VITALS: BP 123/82; PULSE 66; TEMP 36.5; O2SAT 96
[2017-04-02 07:30] VITALS: O2SAT 96
[2017-04-02] MEDS: INSULIN ASPART 100 UNITS/ML 3 ML PEN SC SCH ×2 (08:00→12:27)
[2017-04-02] MEDS: CIPROFLOXACIN 250 MG TAB PO SCH (08:57)
[2017-04-02] MEDS: ASPIRIN 81 MG ECTAB PO SCH (08:57)
[2017-04-02] MEDS: SODIUM CHLORIDE 0.9% 1000ML 1,000 ML IV SCH (11:05)
[2017-04-02 11:28] LABS: BUN/CREATININE RATIO 17.5 (10-20); CALCIUM 8.7 mg/dl (8.5-10.1); CREATININE 1.7 mg/dl (0.60-1.40); POTASSIUM 4.8 mmol/L (3.5-5.1)
[2017-04-02] MEDS ORDERED: CPR250 PO (12:42)
[2017-04-02] MEDS ORDERED: PHEN-1042 PO (12:42)
--- NOTE | 2017-04-02 12:45 | Discharge Instructions ---
Discharge Instructions Date of Service Apr 02, 2017. Admission Reason for Admission: Acute Renal Insufficiency, Ureteral Calculus Discharge Discharge Diagnosis / Problem: ARF, Ureteral calculus s/p stent placement Discharge Goals Goal(s): Decrease discomfort, Improve function Activity Recommendations Activity Limitations: as noted below (no sternous work or weight lifting more than 5pounds until seen by urology) . Instructions / Follow-Up Instructions / Follow-Up FOLLOWUP WITH FAMILY DOCTOR TOMORROW SCHEDULED. FOLLOWUP WITH UROLOGY SCHEDULED. LAB: BMP IN 5-7 DAYS AND FOLLOW RESULTS WITH FAMILY DOCTOR. HOLD TAKING METFORMIN UNTIL LABS RESULTS AND TO RESTART PER FAMILY DOCTOR BASED ON LAB RESULTS. Current Hospital Diet Patient's current hospital diet: Diabetes Type 2 Diet Discharge Diet Recommended Diet: Diabetes Type 2 Diet Procedures Procedures Performed: Cystoscopy, right RPG, right ureteral stent placement Pending Studies Studies pending at discharge: no Medical Emergencies . Who to Call and When: Medical Emergencies: If at any time you feel your situation is an emergency, please call 911 immediately. . Non-Emergent Contact Non-Emergency issues call your: Primary Care Provider . . "Provider Documentation" section prepared by Nickolas Jones. . VTE Core Measure Inpt VTE Proph given/why not?: SCD's
--- NOTE | 2017-04-02 12:59 | Progress Note ---
Subjective Date of Service: Apr 02, 2017. Subjective Pt evaluation today including: conversation w/ patient, conversation w/ family , physical exam, chart review, lab review, conversation w/ php consultant, review of inpatient medication list Pain: Denies PO Intake: Ioana reg diet Voiding: no voiding problems 81 yo male POD#2 s/p acute R ureteral stent placement. He feels well, care d/w Dr. Jones today. Cr has improved significantly to 1.7, patient anxious to go home. Past notes and events reviewed. Problem List Medical Problems: (1) Acute renal insufficiency Status: Acute (2) Ureteral calculus Status: Acute (3) Urinary tract obstruction by kidney stone Status: Acute Review of Systems Constitutional: No fever, No chills Eyes: No worsening of vision ENT: No hearing loss Respiratory: No wheezing, No shortness of breath Cardiac: No chest pain Abdomen: No pain, No nausea, No vomiting Male : + see HPI Neurologic: No memory loss, No paralysis Psychiatric: No depression symptoms Heme: No clotting problems Skin: No new/changing skin lesions, No color change Objective Vital Signs Date Time Temp Pulse Resp B/P (MAP) Pulse Ox O2 Delivery O2 Flow Rate FiO2 04/02/17 07:30 96 Room Air 04/02/17 07:15 36.5 66 18 123/82 (96) 96 Room Air 04/02/17 00:10 Room Air 04/01/17 22:43 36.9 79 14 146/72 (96) 97 Room Air 04/01/17 16:10 Room Air 04/01/17 15:02 36.3 85 18 127/74 (91) 96 Room Air Physical Exam General Appearance: WD/WN, no apparent distress ENT: hearing grossly normal Neck: supple, no adenopathy Respiratory/Chest: no respiratory distress, no accessory muscle use Cardiovascular: no JVD Abdomen: non tender, soft Extremities: non-tender Neurologic/Psychiatric: alert, oriented x 3 Skin: normal color Laboratory Results Last 24 Hours Test 04/01/17 16:32 04/01/17 20:56 04/02/17 08:03 04/02/17 10:46 Bedside Glucose 114 mg/dl 167 mg/dl 137 mg/dl Sodium Level 139 mmol/L Potassium Level 4.8 mmol/L Chloride Level 106 mmol/L Carbon Dioxide Level 26 mmol/L Anion Gap 7.0 mmol/L Blood Urea Nitrogen 30 mg/dl Creatinine 1.70 mg/dl Est Creatinine Clear Calc Drug Dose 38.7 ml/min Estimated GFR () 43.5 Estimated GFR (Non- 37.5 BUN/Creatinine Ratio 17.5 Random Glucose 198 mg/dl Calcium Level 8.7 mg/dl Chemistry Specimen Hemolysis Test 04/02/17 12:06 Bedside Glucose 187 mg/dl Assessment and Plan A/P 81 yo male POD#2 s/p acute cysto, R stent Care d/w hospitalist service. Complete Cipro post stent and for prior UTI. Office will contact patient to discuss definitive stone management and we will recheck Cr prior to visit. Will obtain prior imaging to review and plan for future intervention. Worrisome signs and symptoms and DC plan discussed with patient who vocalizes good understanding of the treatment plan. Thank you for allowing our service to assist with the patient's acute inpatient care. Discharge planning: home
[2017-04-02 13:41] VITALS: BP 123/82; PULSE 66; TEMP 36.5; O2SAT 96
--- NOTE | 2017-04-02 18:50 | Progress Note ---
Internal Med Progress Note Date of Service: Apr 02, 2017. Provider Documentation: SUBJECTIVE: resting comfortably no pain afebrile eating fine want to go home today OBJECTIVE: Vital Signs-as noted below Exam: General-alert and oriented. Not in distress ENT-Normal hearing Neck-no neck masses supple Lungs-cta b/l no wheezing no crackles present Heart-s1 and s2 heard regular rate and rhythm no murmurs Abdomen-soft bowel sounds present non tender no distension Extremities- no erythema no edema Neuro-alert and oriented moves extremities Lab data as noted below. ASSESSMENT & PLAN: RIGHT HYDRONEPHROSIS/RIGHT UPJ STONE: [facility] stable f/u with urology CAD: As per h and p:-no prior records, patient states he has left heart stent placed 2 years ago on ASA and Plavix stable DM TYPE II: Holding metformin and glipizide ON ISS rstarted glipizide at discharge holding metformin until creatinine improves f/u labs with pcp ANDRÉS: Cr 2.4, last baseline from a year ago is 1.4 cr 1.7 today f/u labs with pcp Discharged home Vital Signs: Date Time Temp Pulse Resp B/P (MAP) Pulse Ox O2 Delivery O2 Flow Rate FiO2 04/02/17 13:41 36.5 66 18 96 Room Air 04/02/17 07:30 96 Room Air 04/02/17 07:15 36.5 66 18 123/82 (96) 96 Room Air 04/02/17 00:10 Room Air 04/01/17 22:43 36.9 79 14 146/72 (96) 97 Room Air Lab Results: Results Past 24 Hours Test 04/01/17 20:56 04/02/17 08:03 04/02/17 10:46 04/02/17 12:06 Range/Units Bedside Glucose 167 137 187 70-99 mg/dl Sodium Level 139 136-145 mmol/L Potassium Level 4.8 3.5-5.1 mmol/L Chloride Level 106 98-107 mmol/L Carbon Dioxide Level 26 21-32 mmol/L Anion Gap 7.0 3-11 mmol/L Blood Urea Nitrogen 30 7-18 mg/dl Creatinine 1.70 0.60-1.40 mg/dl Est Creatinine Clear Calc Drug Dose 38.7 ml/min Estimated GFR () 43.5 Estimated GFR (Non- 37.5 BUN/Creatinine Ratio 17.5 10-20 Random Glucose 198 70-99 mg/dl Calcium Level 8.7 8.5-10.1 mg/dl Chemistry Specimen Hemolysis
--- NOTE | 2017-04-02 18:51 | Discharge Summary ---
Discharge Summary Date of Service Apr 02, 2017. Discharge Summary Admission Date: Mar 31, 2017 at 15:12 Discharge Date: Apr 02, 2017 Discharge Disposition: Home Principal Diagnosis: RIGHT HYDRONEPHROSIS/RIGHT UPJ STONE: s/p cystoscopy and stent placement ARF Procedures: (1) Gout, unspecified Status: Resolved (2) Type 2 diabetes mellitus without complications Status: Chronic Consultations: UROLOGY Medication Reconciliation New Medications: Ciprofloxacin (Ciprofloxacin HCl) 250 Mg Tab 250 MG PO BID for 2 Days, #4 TAB Phenazopyridine HCl (Phenazopyridine HCl) 100 Mg Tab 100 MG PO TID PRN for Bladder pain for 2 Days, #6 TAB Continued Medications: Aspirin (Aspirin Ec) 81 Mg Tab 81 MG PO QAM Clopidogrel (Plavix) 75 Mg Tab 75 MG PO QAM, TAB ON HOLD FOR 7 DAYS PRIOR Glipizide (Glipizide) Unknown Strength Tab 1 TAB PO DAILY Discontinued Medications: Metformin Hcl (Glucophage) Unknown Strength Tab 1 TAB PO BID Admission Information HPI (per Admitting provider): Patient is a pleasant 81 yo male who presented to the ER today for complaints of right abdominal pain, and nausea/vomiting. He reports his symptoms first began about 1 month ago with left flank pain, but became worse on Monday when he started to have hematuria and stated the pain was worse. He went to the [place] where they performed a CT abdomen and pelvis which found an 8 mm stone at the right UPJ but no hydronephrosis. He reports he did have painful urination on Monday and Monday, and also felt that his urine stream was getting abruptly cut off and he had difficulty voiding completely, but this issue has not occurred since. He has continued to have N/V since Monday. He states he feels some relief since being in the ER and laying still. 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 He last ate at 7 AM and had emesis of his breakfast right afterwards. Physical Exam (per Admitting): General Appearance: WD/WN, no apparent distress Head: normocephalic, atraumatic Eyes: PERRL, EOMI, sclerae normal ENT: hearing grossly normal Neck: supple, no JVD, no carotid bruits, trachea midline Respiratory/Chest: chest non-tender, lungs clear, normal breath sounds, no respiratory distress Cardiovascular: regular rate, rhythm, no edema, no JVD, no murmur, normal peripheral pulses Abdomen/GI: normal bowel sounds, non tender, soft, no organomegaly Back: normal range of motion, + right CVA tenderness Extremities/Musculoskelatal: no calf tenderness, normal capillary refill, no pedal edema Neurologic/Psych: no motor/sensory deficits, alert, normal mood/affect, oriented x 3 Skin: normal color, warm/dry, no rash Hospital Course RIGHT HYDRONEPHROSIS/RIGHT UPJ STONE: s/p [facility] stable f/u with urology CAD: As per h and p:-no prior records, patient states he has left heart stent placed 2 years ago on ASA and Plavix stable DM TYPE II: Holding metformin and glipizide ON ISS rstarted glipizide at discharge holding metformin until creatinine improves f/u labs with pcp ANDRÉS: Cr 2.4, last baseline from a year ago is 1.4 cr 1.7 today f/u labs with pcp Discharged home Total time spent on discharge = 35MINUTES This includes examination of the patient, discharge planning, medication reconciliation, and communication with other providers. Discharge Instructions Please take this sheet to every appointment for the next month Discharge Instructions Date of Service Apr 02, 2017. Admission Reason for Admission: Acute Renal Insufficiency, Ureteral Calculus Discharge Discharge Diagnosis / Problem: ARF, Ureteral calculus s/p stent placement Discharge Goals Goal(s): Decrease discomfort, Improve function Activity Recommendations Activity Limitations: as noted below (no sternous work or weight lifting more than 5pounds until seen by urology) . Instructions / Follow-Up Instructions / Follow-Up FOLLOWUP WITH FAMILY DOCTOR TOMORROW SCHEDULED. FOLLOWUP WITH UROLOGY SCHEDULED. LAB: BMP IN 5-7 DAYS AND FOLLOW RESULTS WITH FAMILY DOCTOR. HOLD TAKING METFORMIN UNTIL LABS RESULTS AND TO RESTART PER FAMILY DOCTOR BASED ON LAB RESULTS. Current Hospital Diet Patient's current hospital diet: Diabetes Type 2 Diet Discharge Diet Recommended Diet: Diabetes Type 2 Diet Procedures Procedures Performed: Cystoscopy, right RPG, right ureteral stent placement Pending Studies Studies pending at discharge: no Medical Emergencies . Who to Call and When: Medical Emergencies: If at any time you feel your situation is an emergency, please call 911 immediately. . Non-Emergent Contact Non-Emergency issues call your: Primary Care Provider . . "Provider Documentation" section prepared by Nickolas Jones. . VTE Core Measure Inpt VTE Proph given/why not?: SCD's
== END 2017-04-02 14:05 | disposition home or self-care (01) ==
LOC: C.EDB 11:08 → C.MSW 15:12 → EDBEDREQ 15:41 → ENRESERV 15:47
PROVIDERS: ADMIT Internal Medicine; ATTEND Internal Medicine
DX: N13.2 Hydronephrosis with renal and ureteral calculous obstruction (principal); M10.9 Gout, unspecified; E11.9 Type 2 diabetes mellitus without complications; I25.10 Atherosclerotic heart disease of native coronary artery without angina pectoris; N17.9 Acute kidney failure, unspecified; Z79.82 Long term (current) use of aspirin; Z87.891 Personal history of nicotine dependence; Z87.440 Personal history of urinary (tract) infections; Z83.3 Family history of diabetes mellitus; Z84.1 Family history of disorders of kidney and ureter

== ENCOUNTER → 2017-04-07 | Outpatient (CLI) | payer OTHER ==
[~2017-04-07] MED LIST changes: -ATOR-26 PO; +CPR250 PO; -HYDR-4380 PO; -METF-384 PO; -METO50TA7 PO; +PHEN-1042 PO
== END | disposition home or self-care (01) ==
LOC: C.LABSPEC 14:23
PROVIDERS: ATTEND Urology
DX: N20.1 Calculus of ureter (principal); N39.0 Urinary tract infection, site not specified

== ENCOUNTER → 2017-05-30 | Outpatient (CLI) | payer OTHER ==
--- NOTE | 2017-05-30 13:56 | DIAGNOSTIC IMAGING REPORT ---
ABD/PELVIS NO IV OR ORAL CONT HISTORY: 82 years-old Male N20.1 follow-up study in a patient with a right ureteral stone. Ureteral stent in place. COMPARISON: Renal ultrasound 03/31/2017, CT 03/27/2017, retrograde cystourethrogram 03/31/2017 TECHNIQUE: Multiple axial CT images of the abdomen and pelvis were obtained without contrast. A dose lowering technique was used consistent with the principals of SAHYLA. FINDINGS: Mild dependent bibasilar atelectasis. Groundglass opacities of the inferior segment lingula are also noted suggesting pneumonitis or atelectasis. There is no pneumoperitoneum identified. Imaged inferior cardiac chambers are unremarkable with coronary arterial calcifications seen. Nonspecific subcapsular subcentimeter calcification is seen involving the right hepatic lobe. Liver is otherwise unremarkable. Spleen, gallbladder and adrenal glands are unremarkable. There is moderate diffuse pancreatic atrophy with a few scattered parenchymal calcifications which may reflect sequela of chronic pancreatitis. Nonobstructing calculi are seen within the superior pole left kidney measuring up to 4 mm. Double-J right-sided ureteral stent is in place with proximal portion within the region of the renal pelvis and distal portion looping within the urinary bladder lumen. The previously noted right ureteral calculus is no longer identified. There is moderate stranding surrounding the right renal pelvis and to lesser extent the proximal right ureter without focal fluid collection identified. Urinary bladder is partially collapsed. Calcifications are seen within the central prostate. Small fat filled left inguinal hernia is noted. Moderate to extensive atherosclerotic plaquing of the abdominal aorta is noted. 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 No bulky retroperitoneal adenopathy identified. There is no bowel obstruction or focal bowel wall thickening identified. Moderate stool ball in the rectal vault. There is moderate stool burden throughout the colon. Colonic diverticulosis without diverticulitis. The appendix is not clearly seen. No secondary evidence of acute appendicitis. 1.6 x 0.9 cm ovoid calcified centrally hyperattenuating structure of the left anterior mesentery omental region is unchanged and nonspecific. Soft tissues are unremarkable. The bones are mildly demineralized. Left hip arthroplasty noted without complication. Degenerative changes are seen throughout the spine. IMPRESSION: 1. Double-J right sided ureteral stent in place with moderate inflammatory stranding surrounding the right renal pelvis and proximal right ureter which may be postprocedural or infectious in etiology. No focal fluid collections. 2. Left-sided nephrolithiasis redemonstrated without ureteral calculi identified. 3. Colonic diverticulosis without diverticulitis. 4. 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 The above report was generated using voice recognition software. It may contain grammatical, syntax or spelling errors. Electronically signed by: Anatoliy Holley M.D. 05/30/2017 1:55 PM Dictated Date/Time: 05/30/2017 1:43 PM
[2017-05-30 14:28] LABS: ALT/SGPT 38 U/L (12-78); AST/SGOT 35 U/L (15-37); BLOOD UREA NITROGEN 25 mg/dl (7-18); BUN/CREATININE RATIO 17.5 (10-20); CALCIUM 9.2 mg/dl (8.5-10.1); CARBON DIOXIDE 23 mmol/L (21-32); CHLORIDE 106 mmol/L (98-107); GLUCOSE 143 mg/dl (70-99); POTASSIUM 4.2 mmol/L (3.5-5.1); SODIUM 139 mmol/L (136-145); URIC ACID 5.2 mg/dl (2.6-7.2)
[2017-05-30 14:30] LABS: ALKALINE PHOSPHATASE 72 U/L (45-117)
== END | disposition home or self-care (01) ==
LOC: C.CTS 12:34
PROVIDERS: ATTEND Urology
DX: N20.1 Calculus of ureter (principal); N20.0 Calculus of kidney; K57.90 Diverticulosis of intestine, part unspecified, without perforation or abscess without bleeding

== ENCOUNTER → 2017-07-31 | Outpatient (CLI) | payer OTHER ==
[~2017-07-31] MED LIST changes: +CIPR250T5 PO; -CPR250 PO
[2017-07-31 14:16] LABS: ALT/SGPT 29 U/L (12-78); AST/SGOT 22 U/L (15-37); BLOOD UREA NITROGEN 34 mg/dl (7-18); BUN/CREATININE RATIO 13.4 (10-20); CALCIUM 8.8 mg/dl (8.5-10.1); CARBON DIOXIDE 26 mmol/L (21-32); CHLORIDE 100 mmol/L (98-107); CREATININE 2.54 mg/dl (0.60-1.40); GLUCOSE 156 mg/dl (70-99); POTASSIUM 5.6 mmol/L (3.5-5.1); SODIUM 131 mmol/L (136-145)
[2017-07-31 14:17] LABS: ALKALINE PHOSPHATASE 70 U/L (45-117)
== END | disposition home or self-care (01) ==
LOC: C.LABBFT 07:40
PROVIDERS: ATTEND Urology
DX: N20.0 Calculus of kidney (principal); N20.1 Calculus of ureter; N39.0 Urinary tract infection, site not specified; R79.89 Other specified abnormal findings of blood chemistry; N40.1 Benign prostatic hyperplasia with lower urinary tract symptoms

== ENCOUNTER → 2017-08-03 | Outpatient (CLI) | payer OTHER ==
[~2017-08-03] MED LIST changes: +ALLO100T PO; +CIPR-255 PO; +GLIP-199 PO; +HYDR-3983 PO; +METF-384 PO; +NTRGSL/4 UT; +POLY335019 PO; +POTA10CA28 PO; +TAMS0.4C38 PO
--- NOTE | 2017-08-03 15:47 | DIAGNOSTIC IMAGING REPORT ---
TWO VIEW CHEST CLINICAL HISTORY: Preoperative examination. FINDINGS: PA and lateral chest radiographs are compared to study dated 01/24/2016. The heart is normal for projection and there is atherosclerotic calcification of the thoracic aorta. Enlargement of the central pulmonary arteries suggests pulmonary artery hypertension. Emphysema and chronic interstitial thickening are similar to previous. There is mild chronic elevation of the right hemidiaphragm. No airspace consolidation or pleural effusion is identified. Apical scarring is observed. There is no pneumothorax. The skeletal structures are osteopenic. Degenerative change is noted throughout the thoracic spine. IMPRESSION: Emphysematous change is noted. There is no active disease in the chest. Electronically signed by: Tyrell Pinto M.D. 08/03/2017 3:46 PM Dictated Date/Time: 08/03/2017 3:45 PM
[2017-08-03 17:03] LABS: URINE APPEARANCE CLEAR (CLEAR); URINE BILIRUBIN NEG (NEG); URINE COLOR YELLOW; URINE NITRITE NEG (NEG); URINE SPECIFIC GRAVITY 1.021 (1.000-1.030); UROBILINOGEN NEG (NEG)
[2017-08-03 17:04] LABS: BASO % 0.3 %; BASO ABS # 0.02 K/uL (0-0.2); COMPLETE YES; EOS % 2.5 %; HEMATOCRIT 42.5 % (42-52); IG% 0.5 %; LYMPH % 11.2 %; LYMPH ABS # 0.88 K/uL (1.2-3.4); MEAN CELL VOLUME 94.9 fL (80-100); MEAN CORPUSCULAR HEMOGLOBIN 32.8 pg (25-34); MEAN CORPUSCULAR HGB CONC 34.6 g/dl (32-36); MEAN PLATELET VOLUME 10.5 fL (7.4-10.4); MONO % 12.7 %; NEUT % 72.8 %; PLATELET COUNT 298 K/uL (130-400); RED BLOOD COUNT 4.48 M/uL (4.7-6.1); WHITE BLOOD COUNT 7.85 K/uL (4.8-10.8)
[2017-08-03 17:06] LABS: MANUAL MICROSCOPIC REQUIRED? NO; REVIEW REQ? NO
[2017-08-03 17:34] LABS: BLOOD UREA NITROGEN 46 mg/dl (7-18); BUN/CREATININE RATIO 16.2 (10-20); CALCIUM 8.8 mg/dl (8.5-10.1); CARBON DIOXIDE 23 mmol/L (21-32); CHLORIDE 102 mmol/L (98-107); CREATININE 2.86 mg/dl (0.60-1.40); GLUCOSE 150 mg/dl (70-99); POTASSIUM 4.7 mmol/L (3.5-5.1); SODIUM 132 mmol/L (136-145)
== END | disposition home or self-care (01) ==
LOC: C.LAB 15:13
PROVIDERS: ATTEND Urology
DX: N20.1 Calculus of ureter (principal)

== ENCOUNTER → 2017-08-07 | Day surgery (SDC) | payer OTHER ==
[2017-08-04 12:25] VITALS: BMI 26.0
[~2017-08-07] VITALS: Ht 182.9 cm; Wt 87.3 kg
[~2017-08-07] MED LIST changes: +ATROPINE SULFATE 0.1 MG/ML 5ML SYR IV PRN; +CEFAZOLIN SOD 2000MG/10 ML IV PUSH IV ONE; -CIPR250T5 PO; +CONRAY 30% 150ML BOTTLE ONE; +DEXAMETHASONE SOD INJ 4 MG/ML VIAL ONE; +EpHEDrine SULFATE 50MG/5ML SYR ONE; +EpHEDrine SULFATE INJ 50 MG/ML AMP IV PRN; +FENTANYL CITRATE INJ 50 MCG/1 ML 2 ML VIAL IV PRN; +FENTANYL CITRATE INJ 50 MCG/1 ML 2 ML VIAL ONE; +FLUMAZENIL 0.1 MG/1 ML 10 ML VIAL IV PRN; -GLIP10TA10 PO; +HYDROmorphone INJ 2 MG/ML SYR/VIAL IV PRN; +LABETALOL HCL IV 5 MG/ML 20ML IV PRN; +LIDOCAINE HCL 2% 2 ML VIAL (20MG/ML) ONE; +MEPERIDINE HCL 25 MG/ML CARP IV PRN; +MIDAZOLAM HCL 1 MG/ML 2ML VIAL ONE; +NALOXONE HCL 0.4 MG/1 ML VIAL/CARP IV PRN; +ONDANSETRON INJ 2 MG/ML 2 ML VIAL IV PRN; +ONDANSETRON INJ 2 MG/ML 2 ML VIAL ONE; +OXYCODONE/ACETAMINOPHEN 7.5-325 TAB PO PRN; -PHEN-1042 PO; +PHENYLEPHRINE 100MCG/ML 5ML SYR IV PRN; +PHENYLEPHRINE 100MCG/ML 5ML SYR ONE; +PROPOFOL IV EMULSION 10 MG/ML 20 ML VIAL IV ONE
[2017-08-07 07:27] VITALS: BP 153/81; PULSE 77; TEMP 36.5; O2SAT 98; BMI 26.0
[2017-08-07 07:47] VITALS: Ht 182.9 cm; Wt 87.3 kg
--- NOTE | 2017-08-07 09:02 | History & Physical Bridge Note ---
H&P Re-Evaluation Bridge Note: I have examined the patient, reviewed the History & Physical and in the interval since the performance of the History & Physical I have noted the following changes of clinical significance: No changes noted
--- NOTE | 2017-08-07 09:50 | Discharge Instructions ---
Discharge Instructions Date of Service Aug 07, 2017. Admission Reason for Admission: STONE Discharge Discharge Diagnosis / Problem: Stone Discharge Goals Goal(s): Decrease discomfort, Improve function Activity Recommendations Activity Limitations: resume your previous activity Lifting Limitations: no more than 10 pounds Exercise/Sports Limitations: as tolerated Shower/Bathe: no limitations . Instructions / Follow-Up Instructions / Follow-Up May have blood in urine. May have pelvic discomfort. Current Hospital Diet Patient's current hospital diet: REg Discharge Diet Recommended Diet: Regular Diet Procedures Procedures Performed: Left Cystoscopy, Retrograde Pyelogram, Left Ureteral Stent Placement Pending Studies Studies pending at discharge: no Medical Emergencies . Who to Call and When: Medical Emergencies: If at any time you feel your situation is an emergency, please call 911 immediately. . Non-Emergent Contact Non-Emergency issues call your: Primary Care Provider, Urologist Call Non-Emergent contact if: you have a fever, temperature is above 101, temperature is above 101.5 . . "Provider Documentation" section prepared by Dash Hardin,. . VTE Core Measure Inpt VTE Proph given/why not?: Laury Manriquez, SCD's
--- NOTE | 2017-08-07 09:51 | [facility] Operative Report ---
Operative Report Operative Date Aug 07, 2017. Pre-Operative Diagnosis Left Ureteral Stone Post-Operative Diagnosis Left Ureteral Stone Procedure(s) Performed Left Cystoscopy, Retrograde Pyelogram, Left Ureteral Stent Placement Surgeon Dr. Hardin Completion Engineer Surgeon(s) none Estimated Blood Loss none Findings Left Stone Specimens none per surgeon Complication(s) None Disposition Recovery Room / PACU Indications Left stone with pain. Risks and benefits discussed. Description of Procedure Patient was consented and brought back to the operating room. Patient was placed under anesthesia in the supine position. Patient was prepped and draped in the regular sterile fashion. A time out was completed. A 30degree Cystoscope was placed into the bladder and the entire bladder was examined. The UO's were identified. The left was cannulized with a catheter and a retrograde pyelogram was completed. A wire was then placed. With the wire in place, a 6 x 26 Double J stent was placed. It was confirmed with fluoroscopy. With the stent in place, the bladder was emptied. The scope was removed. The patient was cleaned, aroused from anesthesia, and transferred to the pacu in stable condition having tolerated the procedure well with no complications. I was present and participated in all aspects of the procedure. The patient will be monitored in the PACU until transferred. I attest to the content of the Intraoperative Record and any orders documented therein. Any exceptions are noted below.
--- NOTE | 2017-08-07 10:03 | Anesthesiology Progress Note ---
Anesthesia Post Op Note Date & Time Aug 07, 2017 at 10:03 Vital Signs Pain Intensity: 0 Vital Signs Past 12 Hours Date Time Temp Pulse Resp B/P (MAP) Pulse Ox O2 Delivery O2 Flow Rate FiO2 08/07/17 09:50 66 18 111/66 100 Mask 10 08/07/17 09:45 113/66 08/07/17 09:40 36.2 65 15 75/47 (59) 100 Mask 10 08/07/17 07:27 36.5 77 18 153/81 (105) 98 Room Air Notes Mental Status: alert / awake / arousable, participated in evaluation Pt Amnestic to Procedure: Yes Nausea / Vomiting: adequately controlled Pain: adequately controlled Airway Patency, RR, SpO2: stable & adequate BP & HR: stable & adequate Hydration State: stable & adequate Anesthetic Complications: no major complications apparent
[2017-08-07 10:10] VITALS: BP 123/77; PULSE 66; TEMP 36.3; O2SAT 99
[2017-08-07 10:40] VITALS: BP 141/78; PULSE 65; O2SAT 99
--- NOTE | 2017-08-07 11:09 | DIAGNOSTIC IMAGING REPORT ---
RETROGRADE INCLUDES KUB CLINICAL HISTORY: 82 years-old Male presenting with CYSTO/LT STENT. TECHNIQUE: 5 fluoroscopic spot image(s) obtained as part of an intraoperative procedure. COMPARISON: CT from 05/30/2017. FINDINGS/IMPRESSION: The urologic scope was introduced into the urinary bladder. A catheter was placed into one of the urinary collecting systems, which was subsequently opacified with contrast. No gross evidence of hydronephrosis. A double-J ureteral stent was placed. Please see surgical report for further details. Fluoroscopy dosage (mGy): 2.71. Fluoroscopy time: 12.8 seconds. Number of fluoroscopic spot images: 5. Electronically signed by: Gray Tiwari M.D. 08/07/2017 11:07 AM Dictated Date/Time: 08/07/2017 11:05 AM
[2017-08-07 11:10] VITALS: BP 140/75; PULSE 74; TEMP 36.3; O2SAT 96
== END | disposition home or self-care (01) ==
LOC: C.ACU 06:57
PROVIDERS: ATTEND Urology
DX: N20.1 Calculus of ureter (principal); E11.9 Type 2 diabetes mellitus without complications; E55.9 Vitamin D deficiency, unspecified; I25.2 Old myocardial infarction; Z79.02 Long term (current) use of antithrombotics/antiplatelets; Z79.82 Long term (current) use of aspirin; Z79.899 Other long term (current) drug therapy; Z95.5 Presence of coronary angioplasty implant and graft; Z87.891 Personal history of nicotine dependence

== ENCOUNTER → 2017-08-17 | Day surgery (SDC) | payer OTHER ==
[2017-08-04 16:09] VITALS: BMI 26.0
[~2017-08-17] VITALS: Ht 182.9 cm; Wt 87.3 kg
[~2017-08-17] MED LIST changes: -ASPI81TA28 PO; +CEFAZOLIN 2000MG IV PUSH 10 ML IV SCH; -CEFAZOLIN SOD 2000MG/10 ML IV PUSH IV ONE; +CEPH500C2 PO; -CLOP1TAB15 PO; -EpHEDrine SULFATE 50MG/5ML SYR ONE; -EpHEDrine SULFATE INJ 50 MG/ML AMP IV PRN; -FLUMAZENIL 0.1 MG/1 ML 10 ML VIAL IV PRN; +GLYCOPYRROLATE INJ 0.2 MG/ML VIAL ONE; -HYDROmorphone INJ 2 MG/ML SYR/VIAL IV PRN; -LABETALOL HCL IV 5 MG/ML 20ML IV PRN; -MEPERIDINE HCL 25 MG/ML CARP IV PRN; -NALOXONE HCL 0.4 MG/1 ML VIAL/CARP IV PRN; -ONDANSETRON INJ 2 MG/ML 2 ML VIAL ONE; +OXYC7.5T65 PO; +PHEN-775 PO; -PHENYLEPHRINE 100MCG/ML 5ML SYR IV PRN
[2017-08-17 11:43] VITALS: BP 147/78; PULSE 80; TEMP 36.4; O2SAT 97; Ht 182.9 cm; Wt 87.3 kg
[2017-08-17 12:17] LABS: CALCIUM 9.1 mg/dl (8.5-10.1); CREATININE 1.34 mg/dl (0.60-1.40)
--- NOTE | 2017-08-17 12:22 | History & Physical Bridge Note ---
H&P Re-Evaluation Bridge Note: I have examined the patient, reviewed the History & Physical and in the interval since the performance of the History & Physical I have noted the following changes of clinical significance: No changes noted Left Ureteroscopy with laser litho and stone extraction and retro and stent change.
--- NOTE | 2017-08-17 12:27 | Discharge Instructions ---
Discharge Instructions Date of Service Aug 17, 2017. Admission Reason for Admission: STONE Discharge Discharge Diagnosis / Problem: Stone Discharge Goals Goal(s): Decrease discomfort, Improve function Activity Recommendations Activity Limitations: resume your previous activity Lifting Limitations: no more than 25 pounds Exercise/Sports Limitations: as tolerated, rest today, gradually increase as tolerated Shower/Bathe: no limitations . Instructions / Follow-Up Instructions / Follow-Up May have blood in urine or pelvic discomfort. Call if any fevers. Current Hospital Diet Patient's current hospital diet: Reg Discharge Diet Recommended Diet: Regular Diet Procedures Procedures Performed: Cysto and Left Stone Pending Studies Studies pending at discharge: no Medical Emergencies . Who to Call and When: Medical Emergencies: If at any time you feel your situation is an emergency, please call 911 immediately. . Non-Emergent Contact Non-Emergency issues call your: Primary Care Provider, Urologist Call Non-Emergent contact if: you have a fever, temperature is above 101, temperature is above 101.5, your pain is not controlled, your pain is worsening . . "Provider Documentation" section prepared by Dash Hardin,. . VTE Core Measure Inpt VTE Proph given/why not?: Laury Manriquez, SCD's
--- NOTE | 2017-08-17 14:10 | DIAGNOSTIC IMAGING REPORT ---
RETROGRADE INCLUDES KUB CLINICAL HISTORY: 82 years-old Male presenting with LEFT LASER/STENT PLACEMENT. TECHNIQUE: 6 fluoroscopic spot image(s) obtained as part of an intraoperative procedure. COMPARISON: 08/07/2017. FINDINGS/IMPRESSION: A catheter was introduced into the left renal collecting system over a guidewire. The left renal collecting system was opacified with contrast and without evidence of hydronephrosis. Subsequently, a double-J ureteral stent was placed in a upper pole calyx with the distal terminus in the urinary bladder. Please see surgical report for further details. Fluoroscopy dosage (mGy): 9.51. Fluoroscopy time: 46.2 seconds. Number of fluoroscopic spot images: 6. Electronically signed by: Gray Tiwari M.D. 08/17/2017 2:08 PM Dictated Date/Time: 08/17/2017 2:07 PM
--- NOTE | 2017-08-17 14:26 | [facility] Operative Report ---
Operative Report Operative Date Aug 17, 2017. Pre-Operative Diagnosis Left Stones Post-Operative Diagnosis Same Procedure(s) Performed Left stent exchange with cystoscopy and left retrograde and laser lithotripsy by ureteroscopy Surgeon Wilfred Estimated Blood Loss Minimal Findings Stone within left renal pelvis. Drains 6x26 Double J Left Anesthesia General Complication(s) None Disposition Recovery Room / PACU Indications Obstructing bothersome left stone. Description of Procedure Patient was consented and brought back to the operating room. Patient was placed under anesthesia in the supine position. Patient was prepped and draped in the regular sterile fashion. A time out was completed. A 30degree Cystoscope was placed into the bladder and the entire bladder was examined. The UO's were identified. The left stent was identified and grasped and a wire placed. A ureteral catheter was placed and a retrograde completed. A second wire was then placed. With the wire in place, the flexible ureteroscope was placed over the wire into the pelvis. The entire pelvis was examined. A large stone was discovered and pulverized to dust and small fragments with laser. The entire pelvis was found to be clear of large fragements or stones. At this point, the scope was slowly removed. No further issues were discovered. With the safety wire in place, the wire was backloaded onto the cystoscope and a 6 x [26] Double J stent was placed. It was confirmed with fluoroscopy. With the stent in place, the bladder was emptied. The scope was removed. The patient was cleaned, aroused from anesthesia, and transferred to the pacu in stable condition having tolerated the procedure well with no complications. I was present and participated in all aspects of the procedure. The patient will be monitored in the PACU until transferred. I attest to the content of the Intraoperative Record and any orders documented therein. Any exceptions are noted below.
--- NOTE | 2017-08-17 14:50 | Anesthesiology Progress Note ---
Anesthesia Post Op Note Date & Time Aug 17, 2017 at 14:50 Vital Signs Pain Intensity: 0 Vital Signs Past 12 Hours Date Time Temp Pulse Resp B/P (MAP) Pulse Ox O2 Delivery O2 Flow Rate FiO2 08/17/17 14:40 36.8 97 18 138/92 97 Nasal Cannula 4 08/17/17 14:30 100 18 135/82 94 Oxymask 10 08/17/17 14:20 103 18 116/83 96 Oxymask 10 08/17/17 14:13 36.0 107 20 114/69 96 Oxymask 10 08/17/17 11:43 36.4 80 18 147/78 (101) 97 Room Air Notes Mental Status: alert / awake / arousable, participated in evaluation Pt Amnestic to Procedure: Yes Nausea / Vomiting: adequately controlled Pain: adequately controlled Airway Patency, RR, SpO2: stable & adequate BP & HR: stable & adequate Hydration State: stable & adequate Anesthetic Complications: no major complications apparent
[2017-08-17 15:06] VITALS: BP 121/70; PULSE 93; TEMP 36.5; O2SAT 93
[2017-08-17 15:35] VITALS: BP 136/86; PULSE 94; TEMP 36.5; O2SAT 96
[2017-08-17 16:05] VITALS: BP 134/84; PULSE 93; TEMP 36.4; O2SAT 95
== END | disposition home or self-care (01) ==
LOC: C.ACU 11:21
PROVIDERS: ATTEND Urology
DX: N20.1 Calculus of ureter (principal); I25.10 Atherosclerotic heart disease of native coronary artery without angina pectoris; N18.3 Chronic kidney disease, stage 3 (moderate); E11.22 Type 2 diabetes mellitus with diabetic chronic kidney disease; I12.9 Hypertensive chronic kidney disease with stage 1 through stage 4 chronic kidney disease, or unspecified chronic kidney disease; M10.9 Gout, unspecified; Z98.890 Other specified postprocedural states; Z87.891 Personal history of nicotine dependence; Z79.82 Long term (current) use of aspirin; I25.2 Old myocardial infarction

== ENCOUNTER → 2017-08-24 | Outpatient (CLI) | payer OTHER ==
[~2017-08-24] MED LIST changes: -ATROPINE SULFATE 0.1 MG/ML 5ML SYR IV PRN; -CEFAZOLIN 2000MG IV PUSH 10 ML IV SCH; -CONRAY 30% 150ML BOTTLE ONE; -DEXAMETHASONE SOD INJ 4 MG/ML VIAL ONE; -FENTANYL CITRATE INJ 50 MCG/1 ML 2 ML VIAL IV PRN; -FENTANYL CITRATE INJ 50 MCG/1 ML 2 ML VIAL ONE; -GLYCOPYRROLATE INJ 0.2 MG/ML VIAL ONE; -LIDOCAINE HCL 2% 2 ML VIAL (20MG/ML) ONE; -MIDAZOLAM HCL 1 MG/ML 2ML VIAL ONE; -ONDANSETRON INJ 2 MG/ML 2 ML VIAL IV PRN; -OXYCODONE/ACETAMINOPHEN 7.5-325 TAB PO PRN; -PHENYLEPHRINE 100MCG/ML 5ML SYR ONE; -PROPOFOL IV EMULSION 10 MG/ML 20 ML VIAL IV ONE
--- NOTE | 2017-08-24 10:23 | DIAGNOSTIC IMAGING REPORT ---
KUB HISTORY: Ureteral stone. COMPARISON: KUB 03/31/2017. Retrograde study 08/17/2017. FINDINGS: The bowel gas pattern is unremarkable. There are no dilated loops of small bowel to suggest an obstruction. There is a left ureteral stent which appears to be in good position. The proximal portion of the stent appears to be within the upper pole collecting system. No renal or ureteral calculus identified. Stable lucent 3.3 cm calcified nodule within the left midabdomen. This is demonstrated to be a peritoneal nodule on the prior studies. Left total hip arthroplasty. No pneumoperitoneum or pneumatosis. IMPRESSION: 1. No renal or ureteral calculi identified. 2. Left ureteral stent. This is likely in good position. Electronically signed by: Ryley Gage M.D. 08/24/2017 10:21 AM Dictated Date/Time: 08/24/2017 10:18 AM
[2017-08-24 12:15] LABS: ALT/SGPT 32 U/L (12-78); BLOOD UREA NITROGEN 33 mg/dl (7-18); BUN/CREATININE RATIO 21.6 (10-20); CARBON DIOXIDE 23 mmol/L (21-32); CHLORIDE 106 mmol/L (98-107); CREATININE 1.52 mg/dl (0.60-1.40); GLUCOSE 253 mg/dl (70-99); POTASSIUM 4.2 mmol/L (3.5-5.1); SODIUM 138 mmol/L (136-145)
[2017-08-24 12:18] LABS: ALKALINE PHOSPHATASE 70 U/L (45-117); AST/SGOT 26 U/L (15-37)
== END | disposition home or self-care (01) ==
LOC: C.RAD 09:51
PROVIDERS: ATTEND Urology
DX: N20.1 Calculus of ureter (principal); N20.0 Calculus of kidney; N39.0 Urinary tract infection, site not specified; R79.89 Other specified abnormal findings of blood chemistry; Z96.0 Presence of urogenital implants

== ENCOUNTER → 2017-10-09 | Outpatient (CLI) | payer OTHER ==
[~2017-10-09] MED LIST changes: -CIPR-255 PO; -PHEN-775 PO
--- NOTE | 2017-10-09 12:06 | DIAGNOSTIC IMAGING REPORT ---
KUB HISTORY: N20.1 Ureteric [id number] COMPARISON: KUB 08/24/2017. FINDINGS: The bowel gas pattern is unremarkable. There are no dilated loops of small bowel to suggest an obstruction. Left total hip arthroplasty. The left ureteral stent has been removed. No renal or ureteral calculi identified. Of note, the renal shadows are mostly obscured by overlying bowel gas. Moderate well-formed stool within the colon. Stable 3.3 cm calcification within the left side the abdomen. No pneumoperitoneum or pneumatosis. IMPRESSION: No renal or ureteral calculi identified. Electronically signed by: Ryley Gage M.D. 10/09/2017 12:04 PM Dictated Date/Time: 10/09/2017 12:02 PM
--- NOTE | 2017-10-09 12:31 | DIAGNOSTIC IMAGING REPORT ---
RENAL ULTRASOUND HISTORY: N20.1 Ureteric stone [id number] COMPARISON: Abdomen and pelvis CT 05/30/2017. FINDINGS: Right kidney: 10.8 cm. No hydronephrosis. Mild cortical renal thinning and increased cortical echogenicity. Left kidney: 11.8 cm. No hydronephrosis. Mild cortical renal thinning and increased cortical echogenicity. Bladder: No bladder wall thickening. The bilateral ureteral jets were identified. IMPRESSION: 1. No renal or ureteral calculi identified. 2. Mild bilateral increased cortical echogenicity suggestive of medical renal disease. Electronically signed by: Ryley Gage M.D. 10/09/2017 12:30 PM Dictated Date/Time: 10/09/2017 12:26 PM
== END | disposition home or self-care (01) ==
LOC: C.ULTR 11:21
PROVIDERS: ATTEND Urology
DX: N20.1 Calculus of ureter (principal)

== ENCOUNTER → 2017-11-23 | Outpatient (CLI) | payer OTHER ==
--- NOTE | 2017-11-23 08:44 | DIAGNOSTIC IMAGING REPORT ---
KUB CLINICAL HISTORY: Nephrolithiasis. FINDINGS: 2 AP supine abdominal radiographs are compared to study dated 10/09/2017 and correlated with abdominal CT dated 05/30/2017. There is a nonobstructed abdominal bowel gas pattern noting moderate colonic fecal retention. Colonic contents largely obscure the renal shadows. There is no radiographic evidence of nephrolithiasis. No stones are seen projecting along the course of the ureters. The skeletal structures are osteopenic. There is moderate lumbosacral spondylosis. A left hip arthroplasty is in place. IMPRESSION: There is no radiographic evidence of nephrolithiasis on today's examination. The renal shadows are largely obscured by overlying colonic contents. Electronically signed by: Tyrell Pinto M.D. 11/23/2017 8:43 AM Dictated Date/Time: 11/23/2017 8:41 AM
== END | disposition home or self-care (01) ==
LOC: C.RAD 07:57
PROVIDERS: ATTEND Urology
DX: N20.0 Calculus of kidney (principal)

== ENCOUNTER 2018-10-26 05:12 | Inpatient (IN) ==
--- NOTE | 2018-10-18 13:17 | Anesthesiology Consultation ---
Date of Service October 18, 2018 Assessment & Plan (1) Encounter for pre-operative examination: Plan: Case d/w Dr. Foss. Patient has cardiac history and has not followed with cardiology since 2017, but his cardiac testing is relatively recent, and patient had cystolithopaxy under general anesthesia 07/16/18 which was well- tolerated. Per Dr. Foss OK to proceed as long as patient has not had any cardiopulmonary symptoms since previous surgery. I spoke to the patient on the phone. He denies any chest pain or CASTILLO. 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 He was unsure what he was to do with his Plavix, and I transferred him to the surgeon's office for their instructions. Patient will not be a candidate for spinal as he has been taking Plavix and is now only 4 days out from DOS. Chart Review Chart Review: Acceptable Risk for Surgery and Patient NOT seen in Pre Admission Testing History Surgery Operation Date: 10/26/18 07:15 Proposed Procedures p Left Great Toe Partial Amputation to Interphalangeal Joint - Fidel Campbell DO Height/Weight Height: 6 ft Weight: 88.451 kg Allergies Allergy/AdvReac Type Severity Reaction Status Date / Time No Known Allergies Allergy Verified 10/01/18 08:32 Medications Home Medications Medication Instructions Recorded Confirmed Last Taken allopurinol 100 mg PO QAM 07/09/18 10/01/18 07/15/18 06:30 aspirin 81 mg PO QAM 07/09/18 10/01/18 07/12/18 clopidogrel 75 mg PO QAM 07/09/18 10/01/18 07/15/18 06:30 glipizide 10 mg PO BID 07/09/18 10/01/18 07/15/18 18:00 potassium citrate 1,620 mg PO QAM 07/09/18 10/01/18 07/15/18 06:30 oxycodone-acetaminophen [Percocet] 1 tab PO Q6H PRN #5 tab 07/16/18 10/01/18 Unknown atorvastatin 20 mg PO QAM #30 tab 08/01/18 10/01/18 Unknown doxycycline hyclate 100 mg PO BID #58 cap 08/01/18 10/01/18 Unknown levofloxacin 750 mg PO Q2D@1100 #14 tab 08/01/18 10/01/18 Unknown metoprolol tartrate 12.5 mg PO BID #60 tab 08/01/18 10/01/18 Unknown Past Medical History Medical History Kidney stones CAD (coronary artery disease) (Chronic) STEMI (ST elevation myocardial infarction) 03/2015, tx with SUNITHA. History of ischemic cardiomyopathy LVEF 35-40% previously. 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 Mother , age 88; "old age" No problems noted. Past Surgical History Surgical History History of tonsillectomy History of herniorrhaphy inguinal History of lithotripsy cystolithopaxy @ [facility] 07/16/18, LMA #5, smooth IV induction. History of open reduction and internal fixation (ORIF) procedure right ankle S/P cardiac cath 2014, SUNITHA to LAD Hx of total hip arthroplasty (Resolved) Past Anesthesia History Cystolithopaxy 06/2018 @ [facility], LMA #5, smooth IV induction. Social History Smoking Status: Never smoker tobacco type: cigarettes Smoking cigarettes per day: 1/2 ppd Do You Dip or Chew Tobacco: No Hx Alcohol Use: No Alcohol Intake Frequency Comment: 0 Hx Substance Use: No substance use type: does not use Testing Electrocardiogram Date: 10/01/18 Findings: + NSR @ (94) Low voltage QRS. Incomplete right bundle branch block. Nonspecific T wave abnormality. Prolonged QT. Compared with EKG of 07/09/2018, nonspecific T wave abnormality now evident in lateral leads. Chest X-Ray Date: 07/09/18 1. No acute cardiopulmonary findings. 2. Possible underlying emphysema. Echocardiogram Date: 06/09/15 EF: 55-60% Entire anterior septum, mid and apical anterior wall, apical lateral segment, and apex are abnormal. Mild to moderate mitral valve regurgitation. Stress Test Date: 07/04/16 Type: nuclear 1. Myocardial perfusion imaging study is abnormal following pharmacologic stress with regadenoson. 2. There is a moderate sized, moderate to markeD severity fixed perfusion abnormality or area of myocardial infarction involving the apex and septal wall. No stress-induced perfusion abnormality is identified. There is severe septal hypokinesis. The left ventricular EF is 77% post stress and 77% at rest. 3. Negative EKG portion of regadenoson on Myoview stress test. Cardiac Catheterization Date: 04/12/15 1 vessel CAD with thrombotic occlusion of the proximal LAD. Successful 1 vessel stenting of the left anterior descending artery with a SUNITHA. There was persistent ST elevations after reopening the vessel. These improved but did not resolve completely after IC Nipride. His chest pain resolved completely and at the end of the case there was RUBÉN III flow but only a grade 12 myocardial blush. There also appeared to be some layered thrombus in the stent and so despite his recent history of black stools, I opted to give him a full dose of Integrelin. Laboratory Results Laboratory Tests 10/01/18 09:23 WBC 6.58 Hgb 14.3 Hct 42.8 Plt Count 328
--- NOTE | 2018-10-25 17:22 | History & Physical Report ---
Date of Service October 25, 2018 Assessment & Plan (1) Osteomyelitis of toe of left foot: Schedule left foot partial amputation of the great toe to the IP joint. All potential risks, benefits, complications, alternatives, and rehab have been discussed with the patient and he wishes to proceed. Scheduled for 10.26.18. History of Present Illness Chief Complaint: left foot ulcer Primary Care Provider: Ever Perez This is a patient who removed his own left great toenail in July of last year. He was being treated for cellulitis after the toe became red. However, the wound persisted and an MRI done noted osteomyelitis of the distal phalanx of the great toe. He's being set up for surgical tx. Allergies Allergy/AdvReac Type Severity Reaction Status Date / Time No Known Allergies Allergy Verified 10/01/18 08:32 Home Medications Home Medications Medication Instructions Recorded Confirmed Type allopurinol 100 mg PO QAM 07/09/18 10/01/18 History aspirin 81 mg PO QAM 07/09/18 10/01/18 History clopidogrel 75 mg PO QAM 07/09/18 10/01/18 History glipizide 10 mg PO BID 07/09/18 10/01/18 History potassium citrate 1,620 mg PO QAM 07/09/18 10/01/18 History oxycodone-acetaminophen [Percocet] 1 tab PO Q6H PRN #5 tab 07/16/18 10/01/18 Rx atorvastatin 20 mg PO QAM #30 tab 08/01/18 10/01/18 Rx doxycycline hyclate 100 mg PO BID #58 cap 08/01/18 10/01/18 Rx levofloxacin 750 mg PO Q2D@1100 #14 tab 08/01/18 10/01/18 Rx metoprolol tartrate 12.5 mg PO BID #60 tab 08/01/18 10/01/18 Rx Past Med/Surg History Medical History Kidney stones CAD (coronary artery disease) (Chronic) STEMI (ST elevation myocardial infarction) 03/2015, tx with SUNITHA. History of ischemic cardiomyopathy LVEF 35-40% previously. 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 History of open reduction and internal fixation (ORIF) procedure right ankle S/P cardiac cath 2014, SUNITHA to LAD Hx of total hip arthroplasty (Resolved) Family History Father , age 81; "old age" No problems noted. Mother , age 88; "old age" No problems noted. 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 Feels Safe at Home: Yes Smoking Status: Never smoker Hx Alcohol Use: No Hx Substance Use: No Physical Exam Constitutional: well developed and well nourished; no acute distress ENMT: external ear and nose normal, oropharynx normal Neck: trachea midline, no thyromegaly Respiratory: normal respiratory effort, lungs clear to auscultation Cardiovascular: Rate/Rhythm: regular rate and regular rhythm Heart Sounds: normal S1 and normal S2 Gastrointestinal (Abdomen): normal bowel sounds, soft, nontender, no hepatosplenomegaly Musculoskeletal: Left foot: non healing ulcer at the distal tip of the great toe. Mild erythema. Neurologic: Motor/Sensory: + sensory deficit (bilateral feet) Psychiatric: A+Ox3, euthymic affect Lymphatic: no cervical or axillary lymphadenopathy
[2018-10-26] MEDS ORDERED: LR 15ML/HR IV SCH (06:00)
[2018-10-26] MEDS ORDERED: fentaNYL citrate 100 MCG/2 ML VIAL ONE (06:54)
[2018-10-26] MEDS ORDERED: BACITRACIN INJ 50,000 UNIT VIAL ONE (07:06)
[2018-10-26] MEDS ORDERED: BUPIVACAINE 0.5 % 5 MG/1 ML MPF 30ML VIAL ONE (07:06)
[2018-10-26] MEDS ORDERED: LIDOCAINE HCL 1% 20 ML VIAL ONE (07:27)
[2018-10-26] MEDS ORDERED: BUPIVACAINE 0.25% 30 ML VIAL ONE (07:27)
[2018-10-26] MEDS ORDERED: BUPIVACAINE/EPINEPHRINE 0.5% MPF 1:200,000 30 ML VIAL ONE (07:27)
--- NOTE | 2018-10-26 07:41 | History & Physical Bridge Note ---
Date of Service October 26, 2018 History & Physical Bridge Note I have examined the patient, reviewed the History & Physical and in the interval since the performance of the History & Physical I have noted the following changes of clinical significance: no changes noted
[2018-10-26] MEDS ORDERED: MEPIVACAINE HCL 1.5% 30 ML VIAL ONE (07:45)
[2018-10-26] MEDS ORDERED: CEFAZOLIN 2,000 MG/15 ML IV PUSH IV ONE (07:45)
[2018-10-26] MEDS: CEFAZOLIN 2000MG 2,000 MG/15 ML SYR IV SCH ×2 (07:46→15:47)
[2018-10-26] MEDS ORDERED: ZOLPIDEM TARTRATE 5 MG TAB PO PRN (08:29)
[2018-10-26] MEDS ORDERED: PROPOFOL IV EMULSION 10 MG/ML 20 ML VIAL IV ONE (08:33)
[2018-10-26] MEDS ORDERED: LIDOCAINE HCL 2% 2 ML VIAL/AMP(20MG/ML) INFIL ONE (08:33)
[2018-10-26] MEDS ORDERED: MAGNESIUM HYDROXIDE SUSP 30 ML UDC PO PRN (08:34)
[2018-10-26] MEDS ORDERED: SOD PHOSPHATE/SOD BIPHOSPHATE ENEMA 132 ML BTL PR PRN (08:34)
[2018-10-26] MEDS ORDERED: ALUMINUM/MAGNESIUM SUSP 30 ML UDC PO PRN (08:34)
[2018-10-26] MEDS ORDERED: MoRPHine SULFATE 4 MG/ML 1 ML CARP\\VIAL IV PRN (08:34)
[2018-10-26] MEDS ORDERED: BISACODYL 10 MG SUPP PR PRN (08:34)
[2018-10-26] MEDS ORDERED: ONDANSETRON INJ 2 MG/ML 2 ML VIAL IV PRN ×2 (08:34→08:37)
[2018-10-26] MEDS ORDERED: ATROPINE SULFATE 0.1 MG/ML 10ML SYR IV PRN (08:37)
[2018-10-26] MEDS ORDERED: fentaNYL citrate 100 MCG/2 ML VIAL IV PRN (08:37)
[2018-10-26] MEDS ORDERED: ePHEDrine sulfate 50 MG/ML AMP IV PRN (08:37)
--- NOTE | 2018-10-26 08:43 | Post Operative Brief Note ---
Immediate Post Op Note v1 Date of Surgery October 26, 2018 Pre & Post Diagnosis Operation Date: 10/26/18 07:15 Pre-Op Diagnosis: Left Great Toe Osteomyelitis Distal Phalanx Post-Op Diagnosis: Left Great Toe Osteomyelitis Distal Phalanx Procedure Operation Date: 10/26/18 07:15 Actual Procedures p Left Great Toe Partial Amputation to Interphalangeal Joint(Left); partial amputation distal aspect proximal phalanx great toe- Fidel Campbell DO Surgeon Fidel Campbell DO Poultry Grader None Estimated Blood Loss 1 Findings Consistent with Post-Op Diagnosis Specimens Distal great toe amputation Anesthesia Type MAC Regional Complications none Disposition Accompanied Patient To Recovery: No Disposition: Recovery Room Overlapping Procedure I was present for: the critical portions of procedure. I was immediately available: during the entire case.
--- NOTE | 2018-10-26 09:16 | Anesthesiology Progress Note ---
Date of Service October 26, 2018 Anesthesia Post Procedure Vital Signs Vital Signs: Temp Pulse Pulse Resp BP Pulse Ox 10/26/18 09:05 70 15 141/86 H 100 10/26/18 08:55 67 15 150/89 H 100 10/26/18 08:49 36.7 C 68 12 131/82 98 10/26/18 06:21 36.4 C L 88 20 144/88 H 98 Notes Mental Status: alert / awake / arousable and participated in evaluation Nausea / Vomiting: adequately controlled Pain: adequately controlled Airway Patency, RR, SpO2: stable & adequate BP & HR: stable & adequate Hydration State: stable & adequate Anesthetic Complications: no major complications apparent and Pt Satisfied with anesthetic care
[2018-10-26] MEDS ORDERED: POTASSIUM CITRATE 1620 MG PO SCH (09:41)
[2018-10-26] MEDS ORDERED: glipiZIDE 5 MG TAB PO SCH (09:41)
--- NOTE | 2018-10-26 10:19 | Operative Report ---
DATE OF OPERATION: 10/26/2018 PREOPERATIVE DIAGNOSIS: Left great toe osteomyelitis of the distal phalanx with ulceration. POSTOPERATIVE DIAGNOSIS: Left great toe osteomyelitis of the distal phalanx with ulceration. PROCEDURES: 1. Left partial toe amputation to the level of the interphalangeal joint. 2. Partial amputation of the distal aspect of the proximal phalanx, great toe. SURGEON: Fidel Campbell DO MOTOR TRANSPORT INSPECTOR: None. ANESTHESIA: Ankle block with monitored anesthesia care. SPECIMENS: Distal aspect, left great toe. DRAINS: None. COMPLICATIONS: None. BLOOD LOSS: 1 mL. PERTINENT HISTORY: This is an 83-year-old gentleman developed an ulceration distal aspect of the left great toe. Attempted to treat it conservatively and then had worsening redness, swelling and ulceration which was persistent. He eventually had a radiograph and an MRI which both indicated bony destruction consistent with osteomyelitis. The patient was then scheduled for surgery as indicated. All potential risks, benefits, complications, alternatives, rehab, potential for incomplete relief of symptoms, need for surgery, DVT, PE, , persistent pain, swelling, scarring, weakness, neurovascular injury, wound complications and possibly further amputation were discussed with the patient. The patient decided to proceed with the procedure as indicated. DESCRIPTION OF PROCEDURE: The patient was taken to the operative suite, placed supine on the operating room table. After reviewing consent and identification of proper operative site, the patient was sedated. The left ankle was then sterilely prepped with Betadine and the anesthesiologist then performed an ankle block. This was then followed by sterile prep and drape of the left lower extremity. Left lower extremity was then elevated and partially exsanguinated from the mid foot extending proximally and a sterile Esmarch tourniquet was applied over sterile surgical towel at the level of the ankle. Next, a 15 blade scalpel was used to excise the distal aspect of the left great toe at the level of the interphalangeal joint using 15 blade scalpel. A racket-shaped incision was made to fashion the generous soft tissue flap on the plantar aspect of the toe. After this was completed and the joint capsule was transected as well as the soft tissues on the plantar medial and plantar lateral aspects of the great toe, the bony phalanx was then sent off a specimen including the nail bed and nail plate. Next, the distal aspect of the proximal phalanx was then dissected with a 15 blade scalpel and then a sagittal saw was then used to resect the distal aspect of the proximal phalanx of the great toe. It was then sharply excised and also passed off as specimen. The remaining portion of the phalanx was shaped and contoured with a rongeur. Next, the wound was copiously irrigated with sterile normal saline until clear. Top gloves and top sheet were changed followed by tension free closure of the tissue flap with interrupted 3-0 nylon sutures. Once this was completed, a sterile lightly compressive dressing was applied to the left great toe and forefoot. The tourniquet was released, the patient was awakened and taken to recovery in stable condition. I attest to the content of the Intraoperative Record and any orders documented therein. Any exception s are noted below.
[2018-10-26] MEDS ORDERED: PHARMACY GLYCEMIC MGMT CONSULT PRN (10:44)
[2018-10-26] MEDS ORDERED: GLUCOSE 40% GEL 15 GM TUBE PO PRN (10:45)
[2018-10-26] MEDS ORDERED: CARBOHYDRATES FOR HYPOGLYCEMIA PO PRN (10:45)
[2018-10-26] MEDS ORDERED: GLUCOSE 10 TABS/TUBE PO PRN (10:45)
[2018-10-26] MEDS ORDERED: GLUCAGON FOR INJ 1 MG VIAL IM PRN (10:45)
[2018-10-26] MEDS ORDERED: DEXTROSE 50% 50 ML SYRINGE IV PRN (10:45)
--- NOTE | 2018-10-26 11:04 | Pharmacy Report ---
Glycemic Control Consultation - Date of Service October 26, 2018 - Scope Scope: Glycemic Pharmacist consulted by Dr Campbell on 10-26-18 for glycemic control and to write orders per [facility] inpatient glycemic control protocol - Objective Weight: 89.675 kg Accuchecks BSG (last 24hrs): 10/26/18 10/26/18 10/26/18 05:43 08:54 09:48 POC Glucose 207 H 200 H 191 H - Recent Pertinent Medications Outpatient Anti-diabetic Regimen: * glipizide 10 mg BID * A1c = 8.5 % 07/2018 - will order repeat for tomorrow Risk Factors for Insulin Resistance: * Steroids: none noted * Infection: osteomyelitis of foot * Recent Surgery: POD 0 * Diet: T2DM - Assessment & Plan Assessment & Plan: ASSESSMENT: * 83 year old male now s/p left foot partial amputation due to osteomyelitis. Patient with PMH significant for CAD, cardiomyopathy, htn, hld, neuropathy, gout * Type 2 diabetic, most recent A1c 8.5% this past July - will reorder another A1C for tomorrow. Managed at home on glipizide. After review of previous admissions, metformin had also been on medication list. Appears metformin discontinued during last hospital stay due to CKD * No steroids received in OR - however do anticipate hyperglycemia postop likely due to infection PLAN FOR INPATIENT GLYCEMIC CONTROL: * Pt is maintained on oral antidiabetic agents as an outpatient * Oral agents are not recommended for inpatient use d/t drug interactions, changing PO intake, and difficulty titrating for acute hyper/hypoglycemia. ADA recommends re-initiating outpatient oral agents 1-2 days prior to discharge if/when appropriate if they were held on admission. * Will hold oral agents for admission and utilize SQ basal bolus insulin regimen which is the recommended regimen for inpatient glycemic control. * Will initiate weight based insulin dosing for insulin tonny patient and titrate based on BSG trends. * Basal insulin * Lantus 15 units x 1 this AM - will add scale for tonight -For BSG less than 120 - no Lantus -For BSG 120-200 - give 8 units -For BSG greater than 200 - give 15 units * Bolus insulin * NovoLog per scale ACHS or Q6hrs while NPO * Goal Range: Low 120 mg/dL - High 160 mg/dL * Correction Factor: 25 mg/dL/unit * Nutritional / Prandial insulin per carb ratio of 1 unit per 9 grams CHO consumed * Please note that the plan above was derived based on current level of insulin resistance and hospital stress. These recommendations are appropriate for inpati ent admission only. Plan of care upon discharge will need to be reassessed to avoid potential outpatient hypo/hyperglycemia. Thank you.
[2018-10-26] MEDS: MULTIVITAMIN TAB PO SCH (11:05)
[2018-10-26] MEDS: ALLOPURINOL 100 MG TAB PO SCH (11:05)
[2018-10-26] MEDS: DOCUSATE SODIUM 100 MG CAP PO SCH ×2 (11:05→21:13)
[2018-10-26] MEDS: ATORVASTATIN 20 MG TAB PO SCH (11:08)
[2018-10-26] MEDS: METOPROLOL TARTRATE 25 MG TAB PO SCH ×2 (11:08→21:14)
[2018-10-26] MEDS: POTASSIUM CHLORIDE 10 MEQ in SODIUM CHLORIDE 0.9% 1000ML 1,000 ML IV SCH (11:09)
[2018-10-26] MEDS ORDERED: INSULIN GLARGINE SOLOSTAR 100 UNITS/ML 3 ML PEN SC ONE ×2 (11:30→18:15)
[2018-10-26] MEDS: INSULIN ASPART 100 UNITS/ML 3 ML PEN SC SCH ×3 (13:03→21:17)
--- NOTE | 2018-10-26 13:59 | Infectious Disease Consult ---
Date of Consultation October 26, 2018 Assessment & Plan (1) Osteomyelitis of toe of left foot: would suggest short course -14 days po levaquin and doxy post op. will need ongoing wound care post d/c. can follow at wound center post d/c if recurrent infection/ ok for d/c when otherwise stable. History of Present Illness Attending Physician: Fidel Campbell DO pt admitted for elective amp of left first toe. some months ago he removed toe nail with pliers. had non healing wound and imaging c/w osteo. was hospitalized, started on abx and then cutlure obtained, negative. was d/c on emperic doxy and levaquin and was followed more recently in wound center. was to have visit there this past Monday but did not show. He does not know if he is still on abx, says he takes too many medicines. no f/c. no pain in foot, uncerwent amp yesterday, tolerated well. no abd pain, no n/v/d. family at bedside. no cp, cough, sob. dressing not changed from OR c/d/i, no bleeding or drainage. currently only received pre op ancef no labs, imaging or micro to review. Allergies Allergy/AdvReac Type Severity Reaction Status Date / Time No Known Allergies Allergy Verified 10/26/18 05:54 Home Medications Home Medications Medication Instructions Recorded Confirmed Type allopurinol 100 mg PO QAM 07/09/18 10/26/18 History aspirin 81 mg PO QAM 07/09/18 10/26/18 History clopidogrel 75 mg PO QAM 07/09/18 10/26/18 History glipizide 10 mg PO BID 07/09/18 10/26/18 History potassium citrate 1,620 mg PO QAM 07/09/18 10/26/18 History oxycodone-acetaminophen [Percocet] 1 tab PO Q6H PRN #5 tab 07/16/18 10/26/18 Rx atorvastatin 20 mg PO QAM #30 tab 08/01/18 10/26/18 Rx metoprolol tartrate 12.5 mg PO BID #60 tab 08/01/18 10/26/18 Rx Patient History Medical History Kidney stones CAD (coronary artery disease) (Chronic) STEMI (ST elevation myocardial infarction) 03/2015, tx with SUNITHA. History of ischemic cardiomyopathy LVEF 35-40% previously. 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 History of open reduction and internal fixation (ORIF) procedure right ankle S/P cardiac cath 2014, SUNITHA to LAD Hx of total hip arthroplasty (Resolved) Family History Father , age 81; "old age" No problems noted. Mother , age 88; "old age" No problems noted. 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 Physical Exam Vital Signs (Past 24 Hours): Last Vital Signs Temp 36.3 C L 10/26/18 11:36 Pulse 60 10/26/18 12:30 Resp 18 10/26/18 12:30 BP 159/84 H 10/26/18 12:30 Pulse Ox 97 10/26/18 12:30 Constitutional: WD/WN, vitals as above Eyes: PERRL, conjunctivae normal, anicteric sclerae ENMT: external ear and nose normal, oropharynx normal Neck: normal visual inspection Respiratory: normal respiratory effort, lungs clear to auscultation Cardiovascular: RRR, no murmur, no edema Gastrointestinal (Abdomen): normal bowel sounds, soft, nontender, no h epatosplenomegaly Musculoskeletal: no cyanosis or clubbing, extremities motor strength 5/5 Skin: no rashes, warm and dry foot dressing c/d/i Psychiatric: A+Ox3, euthymic affect
[2018-10-26] MEDS: SENNA 8.6 MG TAB PO SCH (21:13)
[2018-10-26] MEDS: OXYCODONE/ACETAMINOPHEN 5mg/325mg TAB PO PRN (22:47)
[2018-10-27] MEDS ORDERED: INSULIN ASPART 100 UNITS/ML 3 ML PEN SC SCH
[2018-10-27] MEDS: POTASSIUM CHLORIDE 10 MEQ in SODIUM CHLORIDE 0.9% 1000ML 1,000 ML IV SCH ×2 (00:37→13:59)
[2018-10-27] MEDS: CEFAZOLIN 2000MG 2,000 MG/15 ML SYR IV SCH ×4 (00:37→23:53)
[2018-10-27] MEDS: INSULIN ASPART 100 UNITS/ML 3 ML PEN SC SCH ×5 (00:38→20:17)
[2018-10-27] MEDS: OXYCODONE/ACETAMINOPHEN 5mg/325mg TAB PO PRN ×2 (00:49→11:48)
[2018-10-27 06:07] LABS: Basophils # (auto) 0.04 K/uL (0-0.2); Basophils % (auto) 0.5 %; Eosinophils # (auto) 0.34 K/uL (0-0.5); Eosinophils % (auto) 4.4 %; Hematocrit (blood only) 42.2 % (42-52); Hemoglobin 14.4 g/dL (14.0-18.0); Immature Granulocytes # (auto) 0.06 K/uL (0.00-0.02); Immature Granulocytes % (auto) 0.8 %; Lymphocytes # (auto) 1.73 K/uL (1.2-3.4); Lymphocytes % (auto) 22.4 %; Mean Corpuscular Hgb Conc 34.1 g/dL (32-36); Monocytes # (auto) 0.87 K/uL (0.11-0.59); Monocytes % (auto) 11.3 %; Neutrophils # (auto) 4.67 K/uL (1.4-6.5); Neutrophils % (auto) 60.6 %; Platelet Count 293 K/uL (130-400); RDW Coefficient of Variation 13.8 % (11.5-14.5); RDW Standard Deviation 47.7 fL (36.4-46.3); Red Blood Count 4.44 M/uL (4.7-6.1); White Blood Count 7.71 K/uL (4.8-10.8)
[2018-10-27 07:13] LABS: Estimated Average Glucose 183 mg/dl
--- NOTE | 2018-10-27 07:58 | Orthopedic Progress Note ---
Date of Service October 27, 2018 Assessment & Plan (1) Osteomyelitis of toe of left foot: POD#1 1. Left partial toe amputation to the level of the interphalangeal joint. 2. Partial amputation of the distal aspect of the proximal phalanx, great toe. -Pain management -DVT prophylaxis -Weight bearing-heel weight bearing only in post op shoe (2) Septic olecranon bursitis of left elbow: Patient has a left elbow olecranon bursitis. He is on IV ancef currently. Patient may require I&D of left elbow bursa later today. Will await evaluation by Dr. Campbell this morning. Subjective Patient resting in bed comfortably. Pain in foot is controlled. States he bumped it yesterday which was quite painful. Patient also has left elbow septic olecranon bursitis. He is on IV antibiotics currently. May need I&D later today. He is NPO. Physical Exam Vital Signs (Past 24 Hours): Last Vital Signs Temp 36.3 C L 10/27/18 03:13 Pulse 61 10/27/18 03:13 Resp 16 10/27/18 03:13 BP 144/76 H 10/27/18 03:13 Pulse Ox 97 10/27/18 03:13 Physical Exam: Left foot-Dressing c/d/i, foot is mobile. No calf tenderness. Sensation and n/v status intact Left elbow-Moderate swelling to left olecranon bursa, mild erythema. Not very tender. No streaking
[2018-10-27] MEDS: METOPROLOL TARTRATE 25 MG TAB PO SCH ×2 (09:12→20:15)
[2018-10-27] MEDS: ATORVASTATIN 20 MG TAB PO SCH (09:12)
[2018-10-27] MEDS: DOCUSATE SODIUM 100 MG CAP PO SCH ×2 (09:12→20:14)
[2018-10-27] MEDS: ALLOPURINOL 100 MG TAB PO SCH (09:12)
[2018-10-27] MEDS: MULTIVITAMIN TAB PO SCH (09:12)
[2018-10-27] MEDS: INSULIN GLARGINE SOLOSTAR 100 UNITS/ML 3 ML PEN SC SCH ×2 (09:24→20:17)
--- NOTE | 2018-10-27 11:32 | Anesthesiology Progress Note ---
Date of Service October 27, 2018 Anesthesia Post Procedure Vital Signs Vital Signs: Temp Pulse Resp BP BP Pulse Ox 10/27/18 03:13 36.3 C L 61 16 144/76 H 97 10/26/18 23:27 36.3 C L 59 L 16 118/70 98 10/26/18 14:52 36.5 C 67 20 142/76 H 97 10/26/18 12:30 60 18 159/84 H 97 10/26/18 11:36 36.3 C L 72 16 165/93 H 98 Pain Intensity Left Foot: Pain Intensity: 2 Notes Mental Status: alert / awake / arousable Patient Amnestic to Procedure: Yes Nausea / Vomiting: adequately controlled Pain: adequately controlled Airway Patency, RR, SpO2: stable & adequate BP & HR: stable & adequate Hydration State: stable & adequate Anesthetic Complications: no major complications apparent
[2018-10-27] MEDS: ASPIRIN 81 MG ECTAB PO SCH (11:48)
[2018-10-27] MEDS: CLOPIDOGREL BISULFATE 75 MG TAB PO SCH (11:50)
[2018-10-27] MEDS ORDERED: Nursing to Pharmacy Communication ONE (12:40)
--- NOTE | 2018-10-27 13:57 | Pharmacy Report ---
Pharmacy Glycemic Short Note 2 - Date of Service October 27, 2018 - Glycemic Short BSG Results (Last 24 hours): 10/26/18 10/26/18 10/27/18 17:00 20:19 00:13 POC Glucose 186 H 115 H 101 H 10/27/18 10/27/18 10/27/18 06:01 09:17 12:11 POC Glucose 129 H 130 H 248 H OUTPATIENT ANTIDIABETIC REGIMEN: * glipizide 10 mg BID * A1c = 8 % 10/27/18 ASSESSMENT: * 83 year old male s/p left foot partial amputation due to osteomyelitis. Patient also being treated for left elbow septic olecranon bursitis. He may require I&D. He is currently ordered a diet but will resume NPO status at midnight. * Managed at home on glipizide. After review of previous admissions, metformin had also been on medication list. Appears metformin discontinued during last hospital stay due to CKD * Fasting BSG of 129 mg/dL is at goal. Continue Lantus dosed per scale until exact needs are known. * Lunch BSG was significantly elevated today, 248 mg/dL. RN confirmed that patient ate late breakfast tray just prior to lunch BSG being drawn. He was not given any insulin coverage for breakfast, therefore I will not react to this number. Current Novolog orders worked well on 10/26. Will continue for now. PLAN FOR INPATIENT GLYCEMIC CONTROL: * Basal insulin * Lantus per scale BID -For BSG less than 120 - no Lantus -For BSG 120-200 - give 8 units -For BSG greater than 200 - give 15 units * Bolus insulin * NovoLog per scale ACHS or Q6hrs while NPO * Goal Range: Low 120 mg/dL - High 160 mg/dL * Correction Factor: 25 mg/dL/unit * Nutritional / Prandial insulin per carb ratio of 1 unit per 9 grams CHO consumed
[2018-10-27] MEDS: SENNA 8.6 MG TAB PO SCH (20:15)
[2018-10-28] MEDS: INSULIN ASPART 100 UNITS/ML 3 ML PEN SC SCH ×6 (00:01→23:06)
[2018-10-28] MEDS: POTASSIUM CHLORIDE 10 MEQ in SODIUM CHLORIDE 0.9% 1000ML 1,000 ML IV SCH ×2 (02:19→17:45)
[2018-10-28 05:31] LABS: Basophils # (auto) 0.03 K/uL (0-0.2); Basophils % (auto) 0.4 %; Eosinophils # (auto) 0.33 K/uL (0-0.5); Eosinophils % (auto) 4.7 %; Hematocrit (blood only) 40.4 % (42-52); Immature Granulocytes # (auto) 0.05 K/uL (0.00-0.02); Immature Granulocytes % (auto) 0.7 %; Lymphocytes # (auto) 1.25 K/uL (1.2-3.4); Lymphocytes % (auto) 17.8 %; Mean Corpuscular Hgb Conc 34.7 g/dL (32-36); Mean Corpuscular Volume 94.2 fL (80-100); Mean Platelet Volume 10.2 fL (7.4-10.4); Monocytes # (auto) 0.82 K/uL (0.11-0.59); Monocytes % (auto) 11.7 %; Neutrophils # (auto) 4.54 K/uL (1.4-6.5); Neutrophils % (auto) 64.7 %; Platelet Count 258 K/uL (130-400); RDW Coefficient of Variation 13.8 % (11.5-14.5); RDW Standard Deviation 46.8 fL (36.4-46.3); Red Blood Count 4.29 M/uL (4.7-6.1); White Blood Count 7.02 K/uL (4.8-10.8)
--- NOTE | 2018-10-28 08:03 | Orthopedic Progress Note ---
Date of Service October 28, 2018 Assessment & Plan (1) Osteomyelitis of toe of left foot: POD#2 1. Left partial toe amputation to the level of the interphalangeal joint. 2. Partial amputation of the distal aspect of the proximal phalanx, great toe. -Pain management -DVT prophylaxis -Weight bearing-heel weight bearing only in post op shoe -Dressing changes daily or as needed -Per ID recs patient can be d/c on 2 weeks of PO levaquin and Doxycycline. (2) Septic olecranon bursitis of left elbow: Patient has a left elbow olecranon bursitis. He is on IV ancef currently. It is mostly unchanged from yesterday. No tenderness. Patient may require I&D of left elbow bursa later today. Will await evaluation by Dr. Campbell this morning. Subjective Patient resting in bed comfortably. Pain in foot is controlled-is worse from yesterday. Patient also has left elbow septic olecranon bursitis. He is on IV antibiotics currently. May need I&D later today. He is NPO. Physical Exam Vital Signs (Past 24 Hours): Last Vital Signs Temp 36.4 C L 10/28/18 07:15 Pulse 67 10/28/18 07:15 Resp 18 10/28/18 07:15 BP 152/89 H 10/28/18 07:15 Pulse Ox 97 10/28/18 07:15 Physical Exam: Left foot-Incision c/d/i, no erythema or drainage. New dry dressing applied. No calf tenderness, sensation and n/v status intact. Left elbow-Mild swelling of olecranon bursa with mild surrounding light erythema. Non tender. Mild to moderate amount of serous drainage.
[2018-10-28] MEDS: INSULIN GLARGINE SOLOSTAR 100 UNITS/ML 3 ML PEN SC SCH ×2 (08:22→21:39)
[2018-10-28] MEDS ORDERED: BACITRACIN INJ 50,000 UNIT VIAL ONE (09:04)
[2018-10-28] MEDS ORDERED: PROPOFOL IV EMULSION 10 MG/ML 20 ML VIAL IV ONE (09:06)
[2018-10-28] MEDS ORDERED: fentaNYL citrate 100 MCG/2 ML VIAL ONE (09:06)
[2018-10-28] MEDS: CEFAZOLIN 2000MG 2,000 MG/15 ML SYR IV SCH ×3 (09:06→23:36)
[2018-10-28] MEDS ORDERED: LIDOCAINE HCL 2% 2 ML VIAL/AMP(20MG/ML) INFIL ONE (09:06)
[2018-10-28] MEDS ORDERED: ONDANSETRON INJ 2 MG/ML 2 ML VIAL ONE (09:06)
--- NOTE | 2018-10-28 10:02 | Anesthesiology Consultation ---
Date of Service October 28, 2018 Assessment & Plan Chart Review Chart Review: Acceptable Risk for Surgery Consults Requested none NPO Date Last Intake of Fluids: 10/27/18 Time Last Intake of Fluids: 23:59 Date Last Intake of Solids: 10/27/18 Time Last Intake of Solids: 23:59 History Surgery Operation Date: 10/26/18 07:15 Proposed Procedures p Left Great Toe Partial Amputation to Interphalangeal Joint - Fidel Campbell DO Operation Date: 10/28/18 09:30 Proposed Procedures p Olecranon Bursa Excision(Left) - Fidel Campbell DO Height/Weight Height: 6 ft Weight: 89.675 kg Allergies Allergy/AdvReac Type Severity Reaction Status Date / Time No Known Allergies Allergy Verified 10/26/18 05:54 Medications Home Medications Medication Instructions Recorded Confirmed Last Taken allopurinol 100 mg PO QAM 07/09/18 10/26/18 10/25/18 07:00 aspirin 81 mg PO QAM 07/09/18 10/26/18 10/25/18 07:00 clopidogrel 75 mg PO QAM 07/09/18 10/26/18 09/28/18 07:00 glipizide 10 mg PO BID 07/09/18 10/26/18 10/25/18 07:00 potassium citrate 1,620 mg PO QAM 07/09/18 10/26/18 10/25/18 07:00 oxycodone-acetaminophen [Percocet] 1 tab PO Q6H PRN #5 tab 07/16/18 10/26/18 Unknown atorvastatin 20 mg PO QAM #30 tab 08/01/18 10/26/18 10/25/18 07:00 metoprolol tartrate 12.5 mg PO BID #60 tab 08/01/18 10/26/18 10/25/18 07:00 Active Medications Generic Name Dose Route Start Last Admin Trade Name Freq PRN Reason Stop Dose Admin Allopurinol 100 mg 10/26/18 11:00 10/27/18 09:12 Zyloprim PO 11/25/18 10:59 100 mg QAM HARSHA Administration Aspirin 81 mg 10/27/18 09:00 10/27/18 11:48 Ecotrin Ectab PO 11/26/18 08:59 81 mg QAM HARSHA Administration Atorvastatin Calcium 20 mg 10/26/18 11:00 10/27/18 09:12 Lipitor PO 11/25/18 10:59 20 mg QAM HARSHA Administration Clopidogrel Bisulfate 75 mg 10/27/18 09:00 10/27/18 11:50 Plavix PO 11/26/18 08:59 Not Given QAM HARSHA Docusate Sodium 100 mg 10/26/18 11:00 10/27/18 20:14 Colace PO 11/25/18 10:59 100 mg BID HARSHA Administration Cefazolin Sodium 2,000 mg in 15 mls @ 3.75 mls/min 10/26/18 08:45 10/28/18 09:06 Ancef 2000mg IV 11/05/18 08:44 3.75 mls/min Q8H HARSHA Administration Protocol Potassium Chloride 10 meq/ 1,005 mls @ 75 mls/hr 10/26/18 10:30 10/28/18 05:09 Sodium Chloride IV 11/25/18 10:29 75 mls/hr .[id number] HARSHA Infusion Insulin Aspart 0 units 10/27/18 00:00 10/28/18 05:47 Novolog Flexpen SC 11/26/18 00:00 Not Given Q6 HARSHA Protocol Insulin Glargine 0 units 10/26/18 21:00 10/28/18 08:22 Lantus Solostar Pen SC 11/25/18 20:59 8 units BID HARSHA Administration Protocol Metoprolol Tartrate 12.5 mg 10/26/18 11:00 10/27/18 20:15 Lopressor PO 11/25/18 10:59 12.5 mg BID HARSHA Administration Multivitamins 1 tab 10/26/18 11:00 10/27/18 09:12 Multivitamin Tab PO 11/25/18 10:59 1 tab QAM HARSHA Administration Oxycodone/Acetaminophen 1 - 2 tab 10/26/18 09:41 10/27/18 11:48 Percocet 5mg/325mg PO 11/09/18 09:40 2 tab Q4H PRN Administration pain Sennosides 17.2 mg 10/26/18 21:00 10/27/18 20:15 Senokot PO 11/25/18 20:59 17.2 mg HS HARSHA Administration Past Medical History Medical History Kidney stones CAD (coronary artery disease) (Chronic) STEMI (ST elevation myocardial infarction) 03/2015, tx with SUNITHA. History of ischemic cardiomyopathy LVEF 35-40% previously. 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 Mother , age 88; "old age" No problems noted. Past Surgical History Surgical History History of tonsillectomy History of herniorrhaphy inguinal History of lithotripsy cystolithopaxy @ [facility] 07/16/18, LMA #5, smooth IV induction. History of open reduction and internal fixation (ORIF) procedure right ankle S/P cardiac cath 2014, SUNITHA to LAD Hx of total hip arthroplasty (Resolved) Past Anesthesia History Cystolithopaxy 06/2018 @ [facility], LMA #5, smooth IV induction. Social History Smoking Status: Never smoker tobacco type: cigarettes Smoking cigarettes per day: 1/2 ppd Do You Dip or Chew Tobacco: No Hx Alcohol Use: No Alcohol Intake Frequency Comment: 0 Hx Substance Use: No substance use type: does not use Physical Exam Vital Signs Last Vital Signs Temp 36.4 C L 10/28/18 07:15 Pulse 67 10/28/18 07:15 Resp 18 10/28/18 07:15 BP 152/89 H 10/28/18 07:15 Pulse Ox 97 10/28/18 07:15 Testing Laboratory Results 10/28/18 05:13 Hemoglobin A1c 8.0 % (4.5-5.6) H 10/27/18 05:49 10/28/18 10/28/18 10/28/18 08:20 05:45 00:01 POC Glucose 124 H 114 H 103 H
--- NOTE | 2018-10-28 10:03 | History & Physical Bridge Note ---
Date of Service October 28, 2018 History & Physical Bridge Note I have examined the patient, reviewed the History & Physical and in the interval since the performance of the History & Physical I have noted the following changes of clinical significance: no changes noted
[2018-10-28] MEDS ORDERED: ePHEDrine sulfate 50 MG/ML AMP IV PRN (10:04)
[2018-10-28] MEDS ORDERED: ATROPINE SULFATE 0.1 MG/ML 10ML SYR IV PRN (10:04)
[2018-10-28] MEDS ORDERED: fentaNYL citrate 100 MCG/2 ML VIAL IV PRN (10:04)
[2018-10-28] MEDS ORDERED: BUPIVACAINE 0.5 % 5 MG/1 ML MPF 30ML VIAL ONE (10:13)
[2018-10-28] MEDS ORDERED: CEFAZOLIN 250 MG/ML 1 GM VIAL ONE (10:23)
--- NOTE | 2018-10-28 11:10 | Post Operative Brief Note ---
Immediate Post Op Note v1 Date of Surgery October 28, 2018 Pre & Post Diagnosis Operation Date: 10/26/18 07:15 Pre-Op Diagnosis: Left Great Toe Osteomyelitis Distal Phalanx Post-Op Diagnosis: Left Great Toe Osteomyelitis Distal Phalanx Operation Date: 10/28/18 09:30 Pre-Op Diagnosis: Septic Olecranon Bursitis Left Elbow Post-Op Diagnosis: Septic Olecranon Bursitis Left Elbow, Exostosis Olecranon bone, Partial tear triceps tendon insertion Procedure Operation Date: 10/26/18 07:15 Actual Procedures p Left Great Toe Partial Amputation to Interphalangeal Joint(Left) - Fidel Campbell DO Operation Date: 10/28/18 09:30 Actual Procedures p Incision and Drainage of left Olecranon Bursa; Olecranon bursectomy, Debridement Tricep tendon, Olecranon bone exostectomy (Left) - Fidel Campbell DO Surgeon Fidel Campbell DO Director Outcomes None Estimated Blood Loss 1 Findings Consistent with Post-Op Diagnosis Specimens Distal great toe amputation foot Aerobic, Anaerobic, Gram stain, olecranon bursa left elbow Drains Other (1/2" iodoform gauze left elbow) Anesthesia Type MAC Regional Complications none Disposition Accompanied Patient To Recovery: No Disposition: Recovery Room
--- NOTE | 2018-10-28 11:38 | Anesthesiology Progress Note ---
Date of Service October 28, 2018 Anesthesia Post Procedure Vital Signs Vital Signs: Temp Pulse Pulse Resp BP BP Pulse Ox 10/28/18 11:35 79 20 125/80 97 10/28/18 11:25 78 23 133/72 99 10/28/18 11:15 36.1 C L 72 14 118/69 100 10/28/18 07:15 36.4 C L 67 18 152/89 H 97 10/27/18 23:35 36.5 C 67 16 133/71 97 10/27/18 15:40 36.3 C L 71 18 139/74 98 Pain Intensity Left Foot: Pain Intensity: 2 Notes Mental Status: alert / awake / arousable and participated in evaluation Patient Amnestic to Procedure: Yes Nausea / Vomiting: adequately controlled Pain: adequately controlled Airway Patency, RR, SpO2: stable & adequate BP & HR: stable & adequate Hydration State: stable & adequate Anesthetic Complications: no major complications apparent
[2018-10-28] MEDS ORDERED: Nursing to Pharmacy Communication ONE (12:22)
--- NOTE | 2018-10-28 12:55 | Operative Report ---
DATE OF OPERATION: 10/28/2018 PREOPERATIVE DIAGNOSIS: Left elbow septic olecranon bursitis. POSTOPERATIVE DIAGNOSES: 1. Left elbow septic olecranon bursitis. 2. Partial tear of the triceps tendon insertion. 3. Exostosis of the olecranon bone. PROCEDURE: 1. Left elbow incision and drainage of septic olecranon bursa. 2. Olecranon bursectomy. 3. Debridement triceps tendon. 4. Exostectomy of the olecranon bone. SURGEON: Dr. Campbell. LEAN MANUFACTURING LEADER: None. ANESTHESIA: General regional. SPECIMENS: Aerobic, anaerobic, Gram stain and olecranon bursa left. COMPLICATIONS: None. BLOOD LOSS: 1 mL. PERTINENT HISTORY: This is an 83-year-old gentleman, who had presented for another procedure for his foot and noted some drainage from his left elbow. It appeared benign without any significant redness or streaking. It has been ongoing for approximately 2-3 days prior to surgery. The patient had his original planned procedure performed on his foot. The patient was then admitted to the hospital for IV antibiotics for his elbow and he was observed for the last 48 hours. He continued to have some minor drainage, but then he had some worsening erythema and minor streaking up to the left elbow and decision was made for surgery as indicated. All potential risks, benefits, complications, alternatives, rehab, potential for incomplete relief of symptoms, need for further surgery, DVT, PE, , persistent pain, swelling, scarring, weakness, neurovascular injury, wound complications were discussed with the patient. The patient decided to proceed with the procedure as indicated. DESCRIPTION OF PROCEDURE: The patient was taken to operative suite, placed supine on the Operating Room table. After review of the consent and identification of proper operative site, the patient was then anesthetized and LMA was placed. The tourniquet was applied high on the left upper extremity over cast padding. Left upper extremity was then sterilely prepped and draped in the usual fashion, elevated and tourniquet inflated to 250 mmHg. There was no exsanguination performed due to the nature of the infection. A 15 blade scalpel was used to make an incision centered over the small punctate area of drainage from the tip of the elbow, extending proximally and distally, centered over the olecranon process. The incision was carefully deepened to the subcutaneous tissue. Meticulous hemostasis was achieved with electrocautery. Full thickness skin flaps developed. The olecranon bursa was then incised and drained and aerobic, anaerobic, Gram stain cultures were obtained. Next, a decision was made to perform an olecranon bursectomy due to the poor condition of the remaining bursal tissue. This was then carefully dissected free from the surrounding tissue with Metzenbaum scissors and forceps. The bursa was then resected in its entirety and then passed off as specimen for pathology. Next, there was noted to be partial tearing of the triceps tendon insertion and this was debrided with a 15 blade scalpel and a rongeur. Also noted was a small size exostosis of the olecranon process of the elbow bone. This was then resected using a rongeur. Next, a pulsatile lavage of 3 liters with sterile normal saline with bacitracin was then used to lavage the elbow site until clear. Next, top gloves and top sheet were changed and the skin was then closed full thickness using interrupted 3-0 nylon horizontal mattress sutures after placement of one-half inch iodoform gauze drain. Next, the incision was then infiltrated with 0.5% Marcaine plain, approximately 20 mL and then a sterile compressive dressing consisting of Xeroform gauze, sterile 4 x 4's, ABD pads x2 and 4 inch cast roll was applied overwrapped with a 4 inch Venkat wrap. The tourniquet was released. The patient was awakened and taken to recovery in stable condition. I attest to the content of the Intraoperative Record and any orders documented therein. Any exception s are noted below.
[2018-10-28] MEDS: ASPIRIN 81 MG ECTAB PO SCH (13:34)
[2018-10-28] MEDS: ATORVASTATIN 20 MG TAB PO SCH (13:34)
[2018-10-28] MEDS: DOCUSATE SODIUM 100 MG CAP PO SCH ×2 (13:34→21:38)
[2018-10-28] MEDS: METOPROLOL TARTRATE 25 MG TAB PO SCH ×2 (13:35→21:38)
[2018-10-28] MEDS: MULTIVITAMIN TAB PO SCH (13:36)
[2018-10-28] MEDS: ALLOPURINOL 100 MG TAB PO SCH (13:36)
[2018-10-28] MEDS ORDERED: KEFZOL SPECIAL PROCEDURE STOCK 1 GM ADDVIAL IV ONE (15:02)
[2018-10-28] MEDS: SENNA 8.6 MG TAB PO SCH (21:37)
[2018-10-29] MEDS: OXYCODONE/ACETAMINOPHEN 5mg/325mg TAB PO PRN (04:25)
[2018-10-29] MEDS: POTASSIUM CHLORIDE 10 MEQ in SODIUM CHLORIDE 0.9% 1000ML 1,000 ML IV SCH (04:25)
[2018-10-29 06:01] LABS: Basophils # (auto) 0.03 K/uL (0-0.2); Basophils % (auto) 0.3 %; Eosinophils # (auto) 0.36 K/uL (0-0.5); Eosinophils % (auto) 4.1 %; Hematocrit (blood only) 40.3 % (42-52); Hemoglobin 13.8 g/dL (14.0-18.0); Immature Granulocytes # (auto) 0.04 K/uL (0.00-0.02); Immature Granulocytes % (auto) 0.5 %; Lymphocytes # (auto) 1.03 K/uL (1.2-3.4); Lymphocytes % (auto) 11.7 %; Mean Corpuscular Hgb Conc 34.2 g/dL (32-36); Mean Corpuscular Volume 94.6 fL (80-100); Mean Platelet Volume 10.3 fL (7.4-10.4); Monocytes # (auto) 0.98 K/uL (0.11-0.59); Monocytes % (auto) 11.1 %; Neutrophils # (auto) 6.39 K/uL (1.4-6.5); Neutrophils % (auto) 72.3 %; Platelet Count 271 K/uL (130-400); RDW Coefficient of Variation 13.9 % (11.5-14.5); RDW Standard Deviation 47.8 fL (36.4-46.3); Red Blood Count 4.26 M/uL (4.7-6.1); White Blood Count 8.83 K/uL (4.8-10.8)
--- NOTE | 2018-10-29 07:35 | Anesthesiology Progress Note ---
Date of Service October 29, 2018 Anesthesia Post Procedure Vital Signs Vital Signs: Temp Pulse Pulse Pulse Pulse Resp BP 10/29/18 07:03 36.3 C L 68 18 147/81 H 10/29/18 03:28 36.7 C 77 18 154/84 H 10/28/18 23:05 36.8 C 71 16 154/90 H 10/28/18 20:13 36.7 C 75 18 128/77 10/28/18 15:05 79 18 133/84 10/28/18 14:20 83 18 120/77 10/28/18 13:00 36.4 C L 90 18 136/86 10/28/18 12:30 36.3 C L 78 18 144/84 H 10/28/18 12:00 36.3 C L 74 18 135/86 10/28/18 11:54 36.1 C L 76 18 135/81 10/28/18 11:45 79 18 138/83 10/28/18 11:35 79 20 125/80 10/28/18 11:25 78 23 133/72 10/28/18 11:15 36.1 C L 72 14 118/69 Pulse Ox 10/29/18 07:03 95 10/29/18 03:28 97 10/28/18 23:05 97 10/28/18 20:13 98 10/28/18 15:05 99 10/28/18 14:20 97 10/28/18 13:00 96 10/28/18 12:30 94 10/28/18 12:00 95 10/28/18 11:54 94 10/28/18 11:45 95 10/28/18 11:35 97 10/28/18 11:25 99 10/28/18 11:15 100 Pain Intensity Left Foot: Pain Intensity: 2 Notes Mental Status: alert / awake / arousable Patient Amnestic to Procedure: Yes Nausea / Vomiting: adequately controlled Pain: adequately controlled Airway Patency, RR, SpO2: stable & adequate BP & HR: stable & adequate Hydration State: stable & adequate Anesthetic Complications: no major complications apparent
--- NOTE | 2018-10-29 08:14 | Orthopedic Progress Note ---
Date of Service October 29, 2018 Assessment & Plan (1) Osteomyelitis of toe of left foot: POD#3 1. Left partial toe amputation to the level of the interphalangeal joint. 2. Partial amputation of the distal aspect of the proximal phalanx, great toe. POD #1 s/p Left elbow olecranon bursectomy, I & D, debridement triceps. -Pain management -DVT prophylaxis -Weight bearing-heel weight bearing only in post op shoe -Dressing changes daily or as needed--the dressings on the elbow and foot were changed today. -Per ID recs patient can be d/c on 2 weeks of PO levaquin and Doxycycline. -D/C planning--home with home health today if that can be set up. Will send ABX to his pharmacy. F/U in our office in 3 days for dressing changes and to ensure elbow cultures remain negative. (2) Septic olecranon bursitis of left elbow: POD #1 s/p Left elbow olecranon bursectomy, I & D, debridement triceps. See above plan for elbow plan Dressing changed today and remaining packing pulled. Subjective Patient resting in bed comfortably. Left foot is doing well. Minimal pain. States he's very happy with how it looks. Left elbow pain is controlled. States with the dressing, he is having difficulty using the arm. No new complaints today. Physical Exam Vital Signs (Past 24 Hours): Last Vital Signs Temp 36.3 C L // 07:03 Pulse 68 10/29/ 07:03 Resp 18 10/29/18 07:03 BP 147/81 H 10/29/18 07:03 Pulse Ox 95 10/29/18 07:03 Constitutional: well developed and well nourished; no acute distress ENMT: external ear and nose normal, oropharynx normal Neck: trachea midline, no thyromegaly Respiratory: normal respiratory effort, lungs clear to auscultation Cardiovascular: Rate/Rhythm: regular rate and regular rhythm Heart Sounds: normal S1 and normal S2 Gastrointestinal (Abdomen): normal bowel sounds, soft, nontender, no hepatosplenomegaly Musculoskeletal: Left elbow: Well approximated incision. Minimal to no erythema around the incision. The last of the packing removed--~3-4 inches. Bloody discharge from the site. Mild fluctuance. No purulence. Left foot: Well approximated great toe partial amp site. No erythema. No drainag e. Neurologic: Motor/Sensory: + sensory deficit (bilateral feet) Psychiatric: A+Ox3, euthymic affect Lymphatic: no cervical or axillary lymphadenopathy
[2018-10-29] MEDS: CEFAZOLIN 2000MG 2,000 MG/15 ML SYR IV SCH (08:24)
[2018-10-29] MEDS: ASPIRIN 81 MG ECTAB PO SCH (08:31)
[2018-10-29] MEDS: DOCUSATE SODIUM 100 MG CAP PO SCH (08:31)
[2018-10-29] MEDS: METOPROLOL TARTRATE 25 MG TAB PO SCH (08:32)
[2018-10-29] MEDS: ATORVASTATIN 20 MG TAB PO SCH (08:32)
[2018-10-29] MEDS: CLOPIDOGREL BISULFATE 75 MG TAB PO SCH (08:33)
[2018-10-29] MEDS: MULTIVITAMIN TAB PO SCH (08:33)
[2018-10-29] MEDS: ALLOPURINOL 100 MG TAB PO SCH (08:34)
[2018-10-29] MEDS: INSULIN ASPART 100 UNITS/ML 3 ML PEN SC SCH (08:38)
[2018-10-29] MEDS: INSULIN GLARGINE SOLOSTAR 100 UNITS/ML 3 ML PEN SC SCH (08:43)
--- NOTE | 2018-10-31 09:13 | Coding Query ---
PRESSURE ULCER DOCUMENTATION To promote full compliance with coding requirements relating to patient care, physician participation is requested in all cases of restaurant assistant uncertainty. Please assist us with the question(s) below: Please specify the known or suspected type by placing an "X" within the parenthesis (x). A non-pressure chronic ulcer of the left great toe If possible, please check the box that provides the specific stage of the NON- PRESSURE CHRONIC ULCER OF THE LEFT GREAT TOE: ( ) Limited to skin breakdown (X) With fat layer exposed ( ) With necrosis of muscle (X) With necrosis of bone ( ) With muscle involvement without evidence of necrosis ( ) With bone involvement without evidence of necrosis ( ) Unstageable ( ) Unable to determine Thank you Belkis GOODE
--- NOTE | 2018-11-12 10:41 | Discharge Summary ---
Date of Service November 12, 2018 Admission HPI Per Admitting Provider This is a patient who removed his own left great toenail in July of last year. He was being treated for cellulitis after the toe became red. However, the wound persisted and an MRI done noted osteomyelitis of the distal phalanx of the great toe. He's being set up for surgical tx. Principal Diagnosis left great toe distal phalanx osteomyelitis Discharge Exam Constitutional well developed and well nourished; no acute distress ENMT external ear and nose normal, oropharynx normal Neck trachea midline, no thyromegaly Respiratory normal respiratory effort, lungs clear to auscultation Cardiovascular Rate/Rhythm: regular rate and regular rhythm Heart Sounds: normal S1 and normal S2 Gastrointestinal (Abdomen) normal bowel sounds, soft, nontender, no hepatosplenomegaly Musculoskeletal Left elbow: Well approximated incision over the olecranon. No erythema. No active drainage. The iodoform packing was removed. Left great toe: well approximated partial great toe amputation flap. Sutures in place. No erythema. Cap refill ~2 seconds. Neurologic Motor/Sensory: + sensory deficit (bilateral feet) Psychiatric A+Ox3, euthymic affect Lymphatic no cervical or axillary lymphadenopathy Discharge Data Allergies Allergy/AdvReac Type Severity Reaction Status Date / Time No Known Allergies Allergy Verified 10/26/18 05:54 Consultations 10/26/18 08:34 Consult Case Management - Discharge Planning Routine Consult Infectious Diseases Routine Procedures Performed Operation Date: 10/26/18 07:15 Actual Procedures p Left Great Toe Partial Amputation to Interphalangeal Joint(Left) - Fidel Campbell DO Operation Date: 10/28/18 09:30 Actual Procedures p Incision and Drebridement of left Olecranon Bursa (Left) - Fidel Campbell DO Hospital Course (1) Osteomyelitis of toe of left foot: Patient was admitted on 10.26.18 and underwent the left great toe partial amputation. However, upon check in for the surgery, he was noted to have a left olecranon bursitis which was concerning for septic olecranon bursitis. After the great toe procedure, he was admitted for IV antibiotics for the left elbow. On 10.28.18, the patient was taken to the OR for a left elbow olecranon bursectomy. Below are the discharge plans for the patient on 10.29.18 for POD #3 for the left great toe and POD #1 for the left elbow. POD#3 1. Left partial toe amputation to the level of the interphalangeal joint. 2. Partial amputation of the distal aspect of the proximal phalanx, great toe. POD #1 s/p Left elbow olecranon bursectomy, I & D, debridement triceps. -Pain management -DVT prophylaxis -Weight bearing-heel weight bearing only in post op shoe -Dressing changes daily or as needed--the dressings on the elbow and foot were changed today. -Per ID recs patient can be d/c on 2 weeks of PO levaquin and Doxycycline. -D/C planning--home with home health today if that can be set up. Will send ABX to his pharmacy. F/U in our office in 3 days for dressing changes and to ensure elbow cultures remain negative. (2) Septic olecranon bursitis of left elbow: POD #1 s/p Left elbow olecranon bursectomy, I & D, debridement triceps. See above plan for elbow plan Dressing changed today and remaining packing pulled. Total Time Total Time Spent Total Time Spent (In Minutes): 20 Total Time Includes: Examination of the Patient, Discharge Planning and Medication Reconciliation Discharge Plan Discharge Items Patient Disposition: Home - Home Health Services Reason For Visit: Left Great Toe Osteomyelitis Distal Phalanx Discharge Diagnosis: left great toe distal phalanx osteomyelitis, left elbow olecranon bursitis Discharge Goals: Decrease discomfort, Improve disease control and Improve function Activity: Per 'Additional Instructions' section Weightbearing: Left partial Weightbearing Comment: heel weightbearing only in post op shoe Non-emergency contact: Surgeon Call non-emergency contact if: your pain is not controlled, your pain is worsening, your temperature is above 101.5 and your wound has increased drainage Follow-up/Referrals: Ever Perez D.O. [Primary Care Provider] - Diet: Carb Consistent or DM2 Addtl Provider Instructions: ACTIVITY RECOMMENDATIONS: Limitations: Heel weight bearing only if able to tolerate. SPECIAL CARE INSTRUCTIONS: * Some drainage onto the dressing is normal and is no cause for alarm. * Some swelling is natural especially after walking. * When resting, keep your foot elevated above the level of your heart. * Call [facility] if you notice: -Increased drainage -Fever over 101 degrees F -Severe constant pain BANDAGE: * Leave bandage/cast in place unless otherwise directed. * Keep bandage/cast dry at all times. PIN CARE: * Leave pins alone. * If pins come loose or fall out, notify physician. FOLLOW UP VISIT WITH DR. CAMPBELL If appointment is not already scheduled: Please call [facility] after you get home today to schedule a follow-up appointment for 11.01.[address] Campbell at . Prescriptions: New oxycodone-acetaminophen [Percocet] 5-325 mg Tablet 1 tab PO Q4H PRN (Reason: pain) Qty: 20 RF: 0 Continued glipizide 10 mg Tablet 10 mg PO BID RF: 0 clopidogrel 75 mg Tablet 75 mg PO QAM RF: 0 allopurinol 100 mg Tablet 100 mg PO QAM RF: 0 aspirin 81 mg Tablet,Delayed Release (Dr/Ec) 81 mg PO QAM RF: 0 potassium citrate 15 mEq Tablet Extended Release 1,620 mg PO QAM RF: 0 atorvastatin 20 mg Tablet 20 mg PO QAM Qty: 30 RF: 2 metoprolol tartrate 25 mg Tablet 12.5 mg PO BID Qty: 60 RF: 0 Discontinued oxycodone-acetaminophen [Percocet] 5-325 mg tablet 1 tab PO Q6H PRN (Reason: pain) Qty: 5 RF: 0 Stand-Alone Forms: [facility] Discharge Orders: Discharge Order (Routine); Ordered 10/29/18 Ordered By: Cyrus Tuttle Admission Data Admit Date/Time: 10/26/18 09:32 Attending Provider: Fidel Campbell Admit Provider: Fidel Campbell Primary Care Provider: Ever Perez Other Providers: Jose Griffith ; Tobin Cerrato ; Belkis Joyce ; Jonathan Webber ; Cyrus Tuttle ; Yamini Anderson ; Eligio Mcknight ; Felipe Spaulding ; Wally Walsh Service: Surgical Services Other Interventions: Discharge Summary Assessment (RN) Last Done: 10/29/18 09:00 DC Date/Time DO NOT enter until pt leaves facility: 10/29/18 10:54
== END 2018-10-29 10:54 | disposition home health service (06) | DRG 617 ==
LOC: ASU 05:12 → 3E 09:32
DX: E11.621 Type 2 diabetes mellitus with foot ulcer; I25.2 Old myocardial infarction; M70.22 Olecranon bursitis, left elbow; L97.524 Non-pressure chronic ulcer of other part of left foot with necrosis of bone; Z79.899 Other long term (current) drug therapy; E11.69 Type 2 diabetes mellitus with other specified complication; I12.9 Hypertensive chronic kidney disease with stage 1 through stage 4 chronic kidney disease, or unspecified chronic kidney disease; N18.3 Chronic kidney disease, stage 3 (moderate); E78.5 Hyperlipidemia, unspecified; Z79.02 Long term (current) use of antithrombotics/antiplatelets; Z95.5 Presence of coronary angioplasty implant and graft; M86.8X7 Other osteomyelitis, ankle and foot; X58.XXXA Exposure to other specified factors, initial encounter; E11.22 Type 2 diabetes mellitus with diabetic chronic kidney disease; Z87.442 Personal history of urinary calculi; E11.42 Type 2 diabetes mellitus with diabetic polyneuropathy; S46.312A Strain of muscle, fascia and tendon of triceps, left arm, initial encounter; I25.10 Atherosclerotic heart disease of native coronary artery without angina pectoris; Z79.82 Long term (current) use of aspirin; Z79.84 Long term (current) use of oral hypoglycemic drugs; M10.9 Gout, unspecified

== ENCOUNTER 2019-01-14 08:20 | Observation (INO) ==
--- OUTSIDE RECORDS SUMMARY | 2019-01-14 08:22 | External Medical Summary | Continuity of Care Document ---
:1935 Author Name Trevor Mcgovern, Provider Address Unavailable Unavailable , Care Team Providers Name Role Phone Reg Mcgovern, Richy Unavailable [email or web address] Mcgovern, Liza Unavailable [email or web address] Wilfred II DO Dash Unavailable [email or web address] TAYLOR GODOY Unavailable Unavailable Unavailable Unavailable Unavailable Problems Diabetes mellitus (250.00) (E11.9) Gout (274.9) (M10.9) Vitamin D deficiency (268.9) (E55.9) ANDRÉS (acute kidney injury) (584.9) (N17.9) Abnormal weight loss (783.21) (R63.4) Diverticulosis (562.10) (K57.90) Internal hemorrhoids (455.0) (K64.8) Ureteral calculus, right (592.1) (N20.1) Elevated liver function tests (790.6) (R94.5) Groin rash (782.1) (R21) Ureteric stone (592.1) (N20.1) Nephrolithiasis (592.0) (N20.0) Impotence, 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) Hyperlipidemia (272.4) (E78.5) Anemia (285.9) (D64.9) Inflammatory disorder Coronary arteriosclerosis (414.00) (I25.10) Osteoarthritis (715.90) (M19.90) Hypertension (401.9) (I10) Memory impairment (780.93) (R41.3) Insomnia (780.52) (G47.00) Benign localized hyperplasia of prostate with urinary obstruction (600.21) (N40.1) Urinary urgency (788.63) (R39.15) Benign prostatic hyperplasia with urinary obstruction (600.0 1) (N40.1) Bladder calculus (594.1) (N21.0) Urinary tract infection (599.0) (N39.0) Allergies and Adverse Reactions atorvastatin (Allergy) Reaction: Myalgia Potassium Citrate-Citric Acid SOLN (Allergy) Reaction: Muscle weakness Medications metFORMIN HCl - 1000 MG Oral Tablet; TAKE 1 TABLET EVERY 12 HOURS DAILY. Refills: 0 Temazepam 15 MG Oral Capsule; TAKE 1 CAPSULE Daily Refills: 0 Finasteride 5 MG Oral Tablet; TAKE 1 TABLET DAILY. Diane Finney Start: 30-May-2017 Quantity: 30 Refills: 11 Cytra-2 500-334 MG/5ML Oral Solution; USE DIRECTED. Shaniqua Allred Start: 07-Apr-2017 Quantity: 1 Refills: 5 Clopidogrel Bisulfate 75 MG Oral Tablet; TAKE 1 TABLET DAILY . 30 Tablet Bottle Refills: 0 glipiZIDE ER 10 MG Oral Tablet Extended Release 24 Hour; Take 1 tablet at breakfast and 1 tablet at supper Refills: 5 Flomax CAPS Refills: 0 HYDROcodone-Acetaminophen 5-325 MG Oral Tablet Refills: 0 oxyCODONE-Acetaminophen 7.5-325 MG Oral Tablet; TAKE 1 TO 2 TABLETS EVERY 4 TO 6 HOURS NEEDED FOR PAIN. DO Dash Hardin II Start: 03-Aug-2017 Quantity: 10 Refills: 0 MiraLax Oral Powder; MIX 1 CAPFUL (17GM) IN 8 OUNCES OF WATER, JUICE, OR TEA AND DRINK DAILY. DO Dash Hardin II Start: 03-Aug-2017 Quantity: 1 765 GM Bottle Refills: 11 Triamcinolone Acetonide 0.1 % External C ream; APPLY AND RUB IN A THIN FILM TO AFFECTED AREAS TWICE DAILY.(AM AND PM). Start: 2018 Refills: 0 Ozempic 0.25 or 0.5 MG/DOSE Subcutaneous Solution Pen-injector; Inject 0.25mg into the skin once a week Start: 15-Nov-2018 Refills: 0 1.5 ML Pen Potassium Citrate ER 10 MEQ (1080 MG) Or al Tablet Extended Release; TAKE 1 TABLET DAILY. Start: 15-Nov-2018 Quantity: 180 Refills: 2 Sildenafil Citrate 20 MG Oral Tablet; TA KE 5 TABLET Once 1 hour prior to activity DO Dash Hardin II Start: 23-Nov-2017 Quantity: 30 Refills: 11 Aspirin 81 MG TABS Refills: 0 Procedures History of Shoulder Surgery Status: Comp leted History of Hernia Repair Status: Complet ed History of Hip Replacement Status: Compl eted History of Cath Stent Placement Status: Completed History of Colonoscopy (Fiberoptic) Stat us: Completed Immunizations Immunizations not documented Family History Mother No pertinent family history (V49.89) (Z78.9) Status: Active Father No pertinent family history (V49.89) (Z78.9) Status: Active Social History - Smoking Status Former smoker Never smoker Plan of Treatment Planned Encounters Appointment; Liza Fajardo M.D. Start: 16-May-2019 10:30 Req uest Planned Observations Planned Goals not documented Results No Known Results Results not documented Encounters Appointment; Dash Hardin II, DO 16-Jul-2018 9:00 Encounter Diagnosis: Problem not documented Appointment; Dash Hardin II, DO 02-Jul-2018 10:30 Encounter Diagnosis: Problem not documented Appointment; Dash Hardin II, DO 05-Jun-2018 11:20 Encounter Diagnosis: Problem not documented Appointment; Dash Hardin II, DO 23-Nov-2017 9:20 Encounter Diagnosis: Problem not documented Appointment; Dash Hardin II, DO 11-Oct-2017 9:40 Encounter Diagnosis: Problem not documented Appointment; Dash Hardin II, DO 24-Aug-2017 11:50 Encounter Diagnosis: Problem not documented Appointment; Urology, Room 8 24-Aug-2017 11:35 Encounter Diagnosis: Problem not documented Appointment; Dash Hardin II, DO 17-Aug-2017 12:30 Encounter Diagnosis: Problem not documented Appointment; Dash Hardin II, DO 07-Aug-2017 10:30 Encounter Diagnosis: Problem not documented Appointment; Dash Hardin II, DO 03-Aug-2017 13:50 Encounter Diagnosis: Problem not documented Appointment; Richy Finney M.D. 11-Jul-2017 9:00 Encounter Diagnosis: Problem not documented Appointment; Richy Finney M.D. 30-May-2017 15:30 Encounter Diagnosis: Problem not documented Appointment; Urology, Room 8 30-May-2017 15:15 Encounter Diagnosis: Problem not documented Appointment; Richy Finney M.D. 02-May-2017 12:40 Encounter Diagnosis: Problem not documented Appointment; Richy Finney M.D. 07-Apr-2017 11:15 Encounter Diagnosis: Problem not documented Appointment; Liza Fajardo M.D. 16-May-2019 10:30 Encounter Diagnosis: Problem not documented
[2019-01-14 08:46] LABS: Basophils # (auto) 0.03 K/uL (0-0.2); Basophils % (auto) 0.4 %; Eosinophils # (auto) 0.28 K/uL (0-0.5); Eosinophils % (auto) 3.6 %; Hematocrit (blood only) 42.7 % (42-52); Hemoglobin 15.2 g/dL (14.0-18.0); Immature Granulocytes # (auto) 0.05 K/uL (0.00-0.02); Immature Granulocytes % (auto) 0.6 %; Lymphocytes # (auto) 1.13 K/uL (1.2-3.4); Lymphocytes % (auto) 14.5 %; Mean Corpuscular Hgb Conc 35.6 g/dL (32-36); Mean Corpuscular Volume 91.4 fL (80-100); Mean Platelet Volume 10.2 fL (7.4-10.4); Monocytes # (auto) 0.75 K/uL (0.11-0.59); Monocytes % (auto) 9.6 %; Neutrophils # (auto) 5.54 K/uL (1.4-6.5); Neutrophils % (auto) 71.3 %; Platelet Count 270 K/uL (130-400); RDW Coefficient of Variation 14.5 % (11.5-14.5); RDW Standard Deviation 48.7 fL (36.4-46.3); Red Blood Count 4.67 M/uL (4.7-6.1); White Blood Count 7.78 K/uL (4.8-10.8)
[2019-01-14 08:57] LABS: INR 1.1 (0.9-1.1); Partial Thromboplastin Time 26.2 Seconds (21.0-31.0); Prothrombin Time 10.8 Seconds (9.0-12.0)
--- NOTE | 2019-01-14 08:58 | XRay Report ---
XR chest 1V portable CLINICAL HISTORY: Atypical chest pain COMPARISON STUDY: No previous studies for comparison. FINDINGS: The cardiac and mediastinal contours are normal. There is no evidence of focal pulmonary co nsolidation. There is no evidence of failure. No pleural effusions are visualized.[ Linear opacities the left lung base are felt to be atelectatic. Underlying emphysema is suspected. IMPRESSION: No active disease in the chest. Electronically signed by: Rakesh Cardoso M.D. 01/14/2019 8:57 AM
[2019-01-14 09:01] LABS: Albumin Level 3.9 gm/dl (3.4-5.0); BUN Creatinine Ratio 19.9 (10-20); Calcium 9.2 mg/dl (8.5-10.1); Creatinine Clr Calc Pharmacy 42.7 ml/min; Est GFR (African American) 50.3; Est GFR (Non-African American) 43.4; Potassium 4.6 mmol/L (3.5-5.1)
[2019-01-14 09:13] LABS: Albumin Globulin Ratio 1.1 (0.9-2); Bilirubin,Total 0.5 mg/dl (0.2-1); Globulin 3.7 gm/dl (2.5-4.0); Total Protein 7.6 gm/dl (6.4-8.2); Troponin I 0.07 ng/ml (0-0.045)
--- NOTE | 2019-01-14 11:29 | History & Physical Report ---
Date of Service January 14, 2019 Assessment & Plan (1) Chest pain: Atypical. Patient with 2-3 weeks of right sided chest pain, has mild elevation in troponin at 0.07 with history of CKD. No EKG evidence of acute ischemia. Patient is high risk given history of CAD with prior stent, HTN, HLP and DM as well as increased stress in setting of recent of his daughter. -Observation to medical floor -Trend cardiac enzymes x 3 sets -2D echo in AM -Consider Cardiology consult and stress testing tomorrow pending results of troponin -Continue ASA, Plavix, Carvedilol -Increase Lipitor to 80mg daily (2) CAD (coronary artery disease): As above -Continue ASA, Plavic, Carvedilol and increased dose of statin -Consider stress testing in AM Present on Admission?: Yes (3) History of ischemic cardiomyopathy: Presently no evidence of CHF -Continue cardiac medications as above Present on Admission?: Yes (4) HTN (hypertension): Blood pressure mildly elevated at present -Continue Carvedilol -Continue Amlodipine -Continue to monitor Present on Admission?: Yes (5) Dyslipidemia: Stable. Chronic -Increase Lipitor dose (6) Type 2 diabetes mellitus: HGAIC=8 in October 2018. Blood sugar elevated now at 247 -Lantus 5u BID -ISS -Continue to monitor Present on Admission?: Yes (7) CKD (chronic kidney disease) stage 3, GFR 30-59 ml/min: BUN and Cr at baseline. +UOP with no urinary difficulty reported -Avoid nephrotoxic agents -Renal dosing where advised -Monitor BUN, Cr, electrolytes and UOP Present on Admission?: Yes (8) Gout: Chronic. Stable -Continue Allopurinol F/E/N - Heplock. Monitor electrolytes and replete as needed. Check Mg and PO4, CC/Heart healthy diet as tolerated Ppx - Heparin Code - DNR per discussion with patient Dispo - Obs to PCU History of Present Illness Chief Complaint: chest pain Primary Care Provider: Ever Perez Mr Stack is a pleasant 83yo male with history of CAD with prior STEMI, s/p stent placement 5 years ago, DM, HTN, HLP, CKD and Gout presenting with right sided chest pain. Pain began appx 3 weeks ago, located in the right anterior chest with radiation to the back. Sharp in nature, 10/10, lasts days. Seems to be non-positional/non-pleuritic and non-exertional. Patient denies diaphoresis/SOB/edema/weight gain or orthopnea. He has been taking pain pills at home with some relief as well as using a heating pad. 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 He reports not working over the winter and recently returned to work appx 2-3 weeks ago. 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 Patient felt a pop yesterday in his right shoulder with some relief of pain. Additionally, patient's daughter was recently admitted to [facility] and . Presently he is without chest pain. No additional complaints at this time. He was recently scheduled for an outpatient stress test but it has not yet been completed. Allergies Allergy/AdvReac Type Severity Reaction Status Date / Time No Known Allergies Allergy Verified 01/14/19 09:52 Home Medications Home Medications Medication Instructions Recorded Confirmed Type allopurinol 100 mg PO DAILY 07/09/18 01/14/19 History aspirin 81 mg PO QAM 07/09/18 01/14/19 History clopidogrel 75 mg PO DAILY 07/09/18 01/14/19 History glipizide 10 mg PO BID 07/09/18 01/14/19 History potassium citrate 1,620 mg PO DAILY 07/09/18 01/14/19 History Daily Antibiotic 1 tab PO DAILY 01/14/19 01/14/19 History amlodipine 2.5 mg PO DAILY 01/14/19 01/14/19 History atorvastatin 20 mg PO HS 01/14/19 01/14/19 History carvedilol 6.25 mg PO BID 01/14/19 01/14/19 History insulin degludec [Tresiba 10 unit SUBCUT HS 01/14/19 01/14/19 History FlexTouch U-200] metformin 1,000 mg PO BID 01/14/19 01/14/19 History Past Med/Surg History Medical History Kidney stones CAD (coronary artery disease) (Chronic) STEMI (ST elevation myocardial infarction) 03/2015, tx with SUNITHA. History of ischemic cardiomyopathy LVEF 35-40% previously. 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 History of open reduction and internal fixation (ORIF) procedure right ankle S/P cardiac cath 2014, SUNITHA to LAD Hx of total hip arthroplasty (Resolved) Family History Father , age 81; "old age" No problems noted. Mother , age 88; "old age" No problems noted. 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 Feels Safe at Home: Yes Safety Concerns: Feels Safe At This Time Smoking Status: Former smoker Tobacco Type: cigarettes Cigarettes Per Day: 1/2 ppd Second Hand Exposure: No Hx Alcohol Use: No Hx Substance Use: No Review of Systems Review of Systems: All systems reviewed & are unremarkable except as noted in HPI & below Physical Exam Physical Exam: General: patient resting comfortably, NAD, non-toxic in appearance, AA&O x 4 Skin: warm, dry, intact, no rashes or lesions HEENT: NC/AT, PERRL, EOMI, anicteric sclera, conjunctiva without injection, external ear normal to inspection and nontender, nares patent, moist mucus membranes, dentition intact, no oropharyngeal lesions, neck supple, trachea midline, no LAD, no thyromegaly, no JVD Heart: +S1/S2, regular, no m/r/g, no chest wall tenderness, no tenderness with palpation of the right shoulder or movement of the right shoulder, no back tenderness Lungs: equal air entry bilaterally, no rales/rhonchi/wheezes Abd: +BS, soft, NT/ND, no masses/organomegaly/ascites Ext: warm, 2+ pulses in UE/LE bilaterally, no clubbing/cyanosis, trace pitting edema bilaterally Neuro: nonfocal, patient AA&O x 4, speech intact, no facial droop, moving all extremities on command with equal strength 5/5 Results & Data Vital Signs (Past 12 Hours) Vital Signs Pulse Resp BP Pulse Ox 01/14/19 08:41 96 01/14/19 08:39 96 01/14/19 08:25 74 20 143/88 H 98 Laboratory Results Lab Results 01/14/19 01/14/19 01/14/19 Range/Units 08:35 08:35 08:35 WBC 7.78 (4.8-10.8) K/uL RBC 4.67 L (4.7-6.1) M/uL Hgb 15.2 (14.0-18.0) g/dL Hct 42.7 (42-52) % MCV 91.4 (80-100) fL MCH 32.5 (25-34) pg MCHC 35.6 (32-36) g/dL RDW Std Deviation 48.7 H (36.4-46.3) fL RDW Coeff of Rachel 14.5 (11.5-14.5) % Plt Count 270 (130-400) K/uL MPV 10.2 (7.4-10.4) fL Immature Gran % (Auto) 0.6 % Neut % (Auto) 71.3 % Lymph % (Auto) 14.5 % Crockett % (Auto) 9.6 % Eos % (Auto) 3.6 % Baso % (Auto) 0.4 % Immature Gran # (Auto) 0.05 H (0.00-0.02) K/uL Neut # (Auto) 5.54 (1.4-6.5) K/uL Lymph # (Auto) 1.13 L (1.2-3.4) K/uL [place]ett # (Auto) 0.75 H (0.11-0.59) K/uL Eos # (Auto) 0.28 (0-0.5) K/uL Baso # (Auto) 0.03 (0-0.2) K/uL PT 10.8 (9.0-12.0) Seconds INR 1.1 (0.9-1.1) APTT 26.2 (21.0-31.0) Seconds PTT Ratio 1.0 Sodium 136 (136-145) mmol/L Potassium 4.6 (3.5-5.1) mmol/L Chloride 104 (98-107) mmol/L Carbon Dioxide 23 (21-32) mmol/L Anion Gap 10.0 (3-11) BUN 30 H (7-18) mg/dl Creatinine 1.49 H (0.6-1.4) mg/dl Est Cr Clr Drug Dosing 42.7 ml/min Est GFR ( Amer) 50.3 Est GFR (Non-Af Amer) 43.4 BUN/Creatinine Ratio 19.9 (10-20) Glucose 247 H (70-99) mg/dl Calcium 9.2 (8.5-10.1) mg/dl Total Bilirubin 0.5 (0.2-1) mg/dl AST 38 H (15-37) U/L ALT 38 (12-78) U/L Alkaline Phosphatase 66 (45-117) U/L Troponin I 0.070 H* (0-0.045) ng/ml Total Protein 7.6 (6.4-8.2) gm/dl Albumin 3.9 (3.4-5.0) gm/dl Globulin 3.7 (2.5-4.0) gm/dl Albumin/Globulin Ratio 1.1 (0.9-2) Lipase 73 (73-393) U/L Diagnostic Findings XR chest 1V portable CLINICAL HISTORY: Atypical chest pain COMPARISON STUDY: No previous studies for comparison. FINDINGS: The cardiac and mediastinal contours are normal. There is no evidence of focal pulmonary consolidation. There is no evidence of failure. No pleural effusions are visualized.[ Linear opacities the left lung base are felt to be atelectatic. Underlying emphysema is suspected. IMPRESSION: No active disease in the chest. Electronically signed by: Rakesh Cardoso M.D. 01/14/2019 8:57 AM Dictated: 01/14/19855 Transcribed: 01/14/19855 ECG Additional Comments: The study shows NSR at 75bpm, normal axis, MT=478, MZW=459, YRf=537, RBBB pattern, no acute ischemic changes Code Status & VTE Plan Code Status DNR per discussion with patient VTE Prophylaxis Plan VTE Prophylaxis will be ordered: Yes Critical Care Time Critical Care Time: No (1) Chest pain Chest pain type: unspecified Qualified Code(s): R07.9 - Chest pain, unspecified (2) CAD (coronary artery disease) Coronary Disease-Associated Artery/Lesion type: [place] artery [place] vs. transplanted heart: [place] heart Associated angina: without angina Qualified Code(s): I25.10 - Atherosclerotic heart disease of [place] coronary artery wi thout angina pectoris (3) HTN (hypertension) Hypertension type: essential hypertension Qualified Code(s): I10 - Essential (primary) hypertension (4) Type 2 diabetes mellitus Diabetes mellitus complication detail: with peripheral angiopathy with gangrene Diabetes mellitus complication status: with circulatory complication Diabetes mellitus penitentiary insulin use: without penitentiary use Qualified Code(s): E11.52 - Type 2 diabetes mellitus with diabetic peripheral angiopathy with gangrene (5) Gout Gout site: unspecified site
[2019-01-14] MEDS ORDERED: GLUCOSE 10 TABS/TUBE PO PRN (13:00)
[2019-01-14] MEDS ORDERED: ONDANSETRON INJ 2 MG/ML 2 ML VIAL IV PRN (13:00)
[2019-01-14] MEDS ORDERED: MoRPHine SULFATE 2 MG/ML CARP IV PRN (13:00)
[2019-01-14] MEDS ORDERED: GLUCOSE 40% GEL 15 GM TUBE PO PRN (13:00)
[2019-01-14] MEDS ORDERED: DEXTROSE 50% 50 ML SYRINGE IV PRN (13:00)
[2019-01-14] MEDS ORDERED: GLUCAGON FOR INJ 1 MG VIAL SQ PRN (13:00)
[2019-01-14] MEDS ORDERED: NITROGLYCERIN SL 0.4 MG/TAB TAB SL PRN (13:00)
[2019-01-14] MEDS ORDERED: CARBOHYDRATES FOR HYPOGLYCEMIA PO PRN (13:00)
[2019-01-14] MEDS ORDERED: ACETAMINOPHEN 325 MG TAB PO PRN (13:00)
[2019-01-14 13:48] LABS: Magnesium 1.8 mg/dl (1.8-2.4); Phosphorus 3.5 mg/dl (2.5-4.9)
[2019-01-14] MEDS: INSULIN ASPART 100 UNITS/ML 3 ML PEN SC SCH ×3 (14:14→20:56)
[2019-01-14] MEDS: HEPARIN SOD 5,000 UNIT/0.5 ML VIAL SQ SCH ×2 (14:15→20:53)
--- NOTE | 2019-01-14 16:22 | Emergency Department Note ---
Entered by Cintia Manjarrez acting as a scribe for History of Present Illness General Chief complaint: Chest Pain Stated complaint: right sided chest pain Time Seen by Provider: 01/14/19 08:31 Source: patient Mode of arrival: ambulatory Limitations: no limitations History of Present Illness Provider complaint: chest pain Onset (ago): week(s) 3 Location: chest and right Pain Consistency: + other (persistent) Maximum Pain Intensity: 10 Quality: + other (chest pain) Relieved By: + medication and + other (lying down) Exacerbated By: not by movement Associated symptoms: + denies other symptoms (leg pain or swelling); no fever/chills and no shortness of breath The patient is an 83 year old male who presents to the ER with complaints of a persistent chest pain that began 3 weeks ago. The patient reports that the pain is located in the right upper side of his chest and states that lying down alleviates his symptoms. He notes that at times pain medication helps as well. He denies any associated shortness of breath. He also denies any injuries to the area as well as any leg pain or swelling. He reports that he does have a history of diabetes as well as some cardiac history. He denies any fevers or chills. He states that notes that movement does not exacerbate his pain. Home Medications Home Medications Medication Instructions Recorded Confirmed Type allopurinol 100 mg PO DAILY 07/09/18 01/14/19 History aspirin 81 mg PO QAM 07/09/18 01/14/19 History clopidogrel 75 mg PO DAILY 07/09/18 01/14/19 History glipizide 10 mg PO BID 07/09/18 01/14/19 History potassium citrate 1,620 mg PO DAILY 07/09/18 01/14/19 History Daily Antibiotic 1 tab PO DAILY 01/14/19 01/14/19 History amlodipine 2.5 mg PO DAILY 01/14/19 01/14/19 History atorvastatin 20 mg PO HS 01/14/19 01/14/19 History carvedilol 6.25 mg PO BID 01/14/19 01/14/19 History insulin degludec [Tresiba 10 unit SUBCUT HS 01/14/19 01/14/19 History FlexTouch U-200] metformin 1,000 mg PO BID 01/14/19 01/14/19 History Allergies Allergy/AdvReac Type Severity Reaction Status Date / Time No Known Allergies Allergy Verified 01/14/19 09:52 Past Med/Surg History Medical History Kidney stones CAD (coronary artery disease) (Chronic) STEMI (ST elevation myocardial infarction) 03/2015, tx with SUNITHA. History of ischemic cardiomyopathy LVEF 35-40% previously. 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 History of open reduction and internal fixation (ORIF) procedure right ankle S/P cardiac cath 2014, SUNITHA to LAD Hx of total hip arthroplasty (Resolved) Family History Father , age 81; "old age" No problems noted. Mother , age 88; "old age" No problems noted. 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 and A total of 10 systems reviewed and were otherwise negative Physical Exam Vital Signs Vital Signs - 24 hr 01/14/19 08:25 01/14/19 08:39 01/14/19 08:41 Sepsis Recent Fever Within 48 Hours No Sepsis New/Unexplained Change in Mental Status No Sepsis Action Taken by Nursing No Action Required Pulse Rate 74 Pulse Rate [Right Finger] Pulse Rhythm Regular Pulse Strength Normal Respiratory Rate 20 Respiratory Effort / Characteristics Non-Labored Spontaneous Respiratory Depth Normal Respiratory Pattern Regular Blood Pressure 143/88 H Blood Pressure [Right Arm] Blood Pressure Mean 106 Blood Pressure Mean [Right Arm] Blood Pressure Position Sitting Pulse Oximetry 98 96 96 Oxygen Delivery Method Room Air Room Air Room Air 01/14/19 09:00 01/14/19 09:30 01/14/19 10:00 Sepsis Recent Fever Within 48 Hours Sepsis New/Unexplained Change in Mental Status Sepsis Action Taken by Nursing Pulse Rate Pulse Rate [Right Finger] 69 66 65 Pulse Rhythm Pulse Strength Respiratory Rate 20 20 20 Respiratory Effort / Characteristics Non-Labored Non-Labored Non-Labored Respiratory Depth Normal Normal Normal Respiratory Pattern Blood Pressure Blood Pressure [Right Arm] 113/69 130/79 123/71 Blood Pressure Mean Blood Pressure Mean [Right Arm] 83 96 88 Blood Pressure Position Pulse Oximetry 95 95 95 Oxygen Delivery Method Room Air Room Air 01/14/19 10:30 Sepsis Recent Fever Within 48 Hours Sepsis New/Unexplained Change in Mental Status Sepsis Action Taken by Nursing Pulse Rate Pulse Rate [Right Finger] 68 Pulse Rhythm Pulse Strength Respiratory Rate 20 Respiratory Effort / Characteristics Non-Labored Respiratory Depth Normal Respiratory Pattern Blood Pressure Blood Pressure [Right Arm] 151/93 H Blood Pressure Mean Blood Pressure Mean [Right Arm] 112 Blood Pressure Position Pulse Oximetry 95 Oxygen Delivery Method Room Air General: Non-ill appearing older male in no acute distress. HEENT: Normal cephalic atraumatic. Pupils are equal round and reactive to light. Extraocular movements are intact. Oropharynx is pink with moist mucous membranes. No swelling of the mouth lips or tongue. Neck: Supple with a midline trachea. No meningeal signs or stiffness, no JVD or bruits. No Stridor. Chest: Clear to auscultation bilaterally. No wheezes or rhonchi. No increased work of breathing. Small faded bruises in the lower left and upper right chest. Heart: regular rate and rhythm. Abdomen: Soft nontender, nondistended without rebound guarding or rigidity. Extremities: No cyanosis clubbing or edema. No calf tenderness or asymmetry. Well healed partial amputation of the left great toe. Spine/Back. Non tender to palpation. No CVA tenderness Skin: Good turgor without rashes. Neurologic exam: Cranial nerves two through 12 are intact. Motor and sensation are intact and symmetrical throughout. Course 0833: Past medical records reviewed. The patient was evaluated in room A3. A complete history and physical examination was performed. 1020: I discussed the patient�s case with Dr. Dee � [facility] Hospitalist. She will evaluate the patient for further management. Administered Medications Heparin Sodium (Porcine) (Heparin Sodium (Porcine)) 5,000 units SQ Q8 HARSHA Stop: 02/13/19 13:59 Last Admin: 01/14/19 14:15 Dose: 5,000 units Documented by: [id number] Cosigned by: [id number] Insulin Aspart (Novolog Flexpen) 0 units SC ACHS HARSHA Stop: 02/13/19 13:29 Last Admin: 01/14/19 14:14 Dose: 4 units Documented by: [id number] Cosigned by: [id number] Medical Decision Making Differential Diagnosis Differential diagnosis includes: ACS, musculoskeletal, CHF, pneumothorax and PE. Medical Records Attestation: I reviewed the patient's medical records. Home Medications Current Medication List: was personally reviewed by me Laboratory Data Attestation: I reviewed the patient's lab results. Result diagrams: 01/14/19 08:35 01/14/19 08:35 Lab Results 01/14/19 01/14/19 01/14/19 Range/Units 08:35 08:35 08:35 WBC 7.78 (4.8-10.8) K/uL RBC 4.67 L (4.7-6.1) M/uL Hgb 15.2 (14.0-18.0) g/dL Hct 42.7 (42-52) % MCV 91.4 (80-100) fL MCH 32.5 (25-34) pg MCHC 35.6 (32-36) g/dL RDW Std Deviation 48.7 H (36.4-46.3) fL RDW Coeff of Rachel 14.5 (11.5-14.5) % Plt Count 270 (130-400) K/uL MPV 10.2 (7.4-10.4) fL Immature Gran % (Auto) 0.6 % Neut % (Auto) 71.3 % Lymph % (Auto) 14.5 % [place] % (Auto) 9.6 % Eos % (Auto) 3.6 % Baso % (Auto) 0.4 % Immature Gran # (Auto) 0.05 H (0.00-0.02) K/uL Neut # (Auto) 5.54 (1.4-6.5) K/uL Lymph # (Auto) 1.13 L (1.2-3.4) K/uL [place] # (Auto) 0.75 H (0.11-0.59) K/uL Eos # (Auto) 0.28 (0-0.5) K/uL Baso # (Auto) 0.03 (0-0.2) K/uL PT 10.8 (9.0-12.0) Seconds INR 1.1 (0.9-1.1) APTT 26.2 (21.0-31.0) Seconds PTT Ratio 1.0 Sodium 136 (136-145) mmol/L Potassium 4.6 (3.5-5.1) mmol/L Chloride 104 (98-107) mmol/L Carbon Dioxide 23 (21-32) mmol/L Anion Gap 10.0 (3-11) BUN 30 H (7-18) mg/dl Creatinine 1.49 H (0.6-1.4) mg/dl Est Cr Clr Drug Dosing 42.7 ml/min Est GFR ( Amer) 50.3 Est GFR (Non-Af Amer) 43.4 BUN/Creatinine Ratio 19.9 (10-20) Glucose 247 H (70-99) mg/dl Calcium 9.2 (8.5-10.1) mg/dl Phosphorus (2.5-4.9) mg/dl Magnesium (1.8-2.4) mg/dl Total Bilirubin 0.5 (0.2-1) mg/dl AST 38 H (15-37) U/L ALT 38 (12-78) U/L Alkaline Phosphatase 66 (45-117) U/L Troponin I 0.070 H* (0-0.045) ng/ml Total Protein 7.6 (6.4-8.2) gm/dl Albumin 3.9 (3.4-5.0) gm/dl Globulin 3.7 (2.5-4.0) gm/dl Albumin/Globulin Ratio 1.1 (0.9-2) Lipase 73 (73-393) U/L 01/14/19 Range/Units 08:35 WBC (4.8-10.8) K/uL RBC (4.7-6.1) M/uL Hgb (14.0-18.0) g/dL Hct (42-52) % MCV (80-100) fL MCH (25-34) pg MCHC (32-36) g/dL RDW Std Deviation (36.4-46.3) fL RDW Coeff of Rachel (11.5-14.5) % Plt Count (130-400) K/uL MPV (7.4-10.4) fL Immature Gran % (Auto) % Neut % (Auto) % Lymph % (Auto) % [place] % (Auto) % Eos % (Auto) % Baso % (Auto) % Immature Gran # (Auto) (0.00-0.02) K/uL Neut # (Auto) (1.4-6.5) K/uL Lymph # (Auto) (1.2-3.4) K/uL [place] # (Auto) (0.11-0.59) K/uL Eos # (Auto) (0-0.5) K/uL Baso # (Auto) (0-0.2) K/uL PT (9.0-12.0) Seconds INR (0.9-1.1) APTT (21.0-31.0) Seconds PTT Ratio Sodium (136-145) mmol/L Potassium (3.5-5.1) mmol/L Chloride (98-107) mmol/L Carbon Dioxide (21-32) mmol/L Anion Gap (3-11) BUN (7-18) mg/dl Creatinine (0.6-1.4) mg/dl Est Cr Clr Drug Dosing ml/min Est GFR ( Amer) Est GFR (Non-Af Amer) BUN/Creatinine Ratio (10-20) Glucose (70-99) mg/dl Calcium (8.5-10.1) mg/dl Phosphorus 3.5 (2.5-4.9) mg/dl Magnesium 1.8 (1.8-2.4) mg/dl Total Bilirubin (0.2-1) mg/dl AST (15-37) U/L ALT (12-78) U/L Alkaline Phosphatase (45-117) U/L Troponin I (0-0.045) ng/ml Total Protein (6.4-8.2) gm/dl Albumin (3.4-5.0) gm/dl Globulin (2.5-4.0) gm/dl Albumin/Globulin Ratio (0.9-2) Lipase (73-393) U/L Imaging Data Radiologist's Impression: Radiology results as stated below per my review and the radiologist's interpretation: XR chest 1V portable CLINICAL HISTORY: Atypical chest pain COMPARISON STUDY: No previous studies for comparison. FINDINGS: The cardiac and mediastinal contours are normal. There is no evidence of focal pulmonary consolidation. There is no evidence of failure. No pleural effusions are visualized.[ Linear opacities the left lung base are felt to be atelectatic. Underlying emphysema is suspected. IMPRESSION: No active disease in the chest. Electronically signed by: Rakesh Cardoso M.D. 01/14/2019 8:57 AM ECG Data Attestation: I personally reviewed and interpreted this ECG as follows: Indication: chest pain Rate (beats per minute): 75 Findings: + other (non-specific T wave abnormality) and + RBBB (incomplete) Comparison ECG Date: from (01-OCT-2018) Change: no significant change Blood Pressure Blood Pressure Findings: Elevated blood pressure Blood Pressure Disposition: further management by hospitalist BOY Narrative This patient comes in as described above. He was placed in room A3 . He has been having chest pain mostly his right side and it has been going on for a week or so. He is scheduled for stress test in the near [place]. He had no shortness of breath. EKG and blood work was obtained as well as chest x-ray. his chest x-ray does not suggest pneumonia or CHF or pneumothorax. His EKG has no definite ischemic changes her troponin is mildly elevated 0.07. He has remained stable. Given his elevated troponin, I and his cardiac risk factors and I do think he should be admitted/observe for further cardiac work-up and e valuation. I have consulted the hospitalist to see him for these measures. Impression & Plan Right-sided chest pain Discharge Plan Visit Data *Final* Discharge Date/Time: 01/14/19 12:35 Chief Complaint: Chest Pain Stated Complaint: right sided chest pain ED Provider: Hakan Wu Discharge Problem: Right-sided chest pain Patient Disposition: Admitted As Inpatient Discharge Instructions Interventions: ED Discharge Assessment Last Done: 01/14/19 12:35 The scribe's documentation has been prepared under my direction and personally reviewed by me in its entirety. I confirm that the note above accurately reflects all work, treatment, procedures, and medical decision making performed by me.
[2019-01-14] MEDS: CARVEDILOL 6.25 MG TAB PO SCH (20:52)
[2019-01-14] MEDS: INSULIN GLARGINE SOLOSTAR 100 UNITS/ML 3 ML PEN SC SCH (20:54)
[2019-01-14] MEDS ORDERED: ATORVASTATIN 40 MG TAB PO SCH (21:00)
[2019-01-15] MEDS: HEPARIN SOD 5,000 UNIT/0.5 ML VIAL SQ SCH (05:50)
[2019-01-15 06:17] LABS: Basophils # (auto) 0.04 K/uL (0-0.2); Basophils % (auto) 0.6 %; Eosinophils # (auto) 0.24 K/uL (0-0.5); Eosinophils % (auto) 3.8 %; Hematocrit (blood only) 40.9 % (42-52); Hemoglobin 14.3 g/dL (14.0-18.0); Immature Granulocytes # (auto) 0.03 K/uL (0.00-0.02); Immature Granulocytes % (auto) 0.5 %; Lymphocytes # (auto) 1.63 K/uL (1.2-3.4); Lymphocytes % (auto) 25.5 %; Mean Corpuscular Volume 91.3 fL (80-100); Mean Platelet Volume 10.3 fL (7.4-10.4); Monocytes # (auto) 0.79 K/uL (0.11-0.59); Monocytes % (auto) 12.3 %; Neutrophils # (auto) 3.67 K/uL (1.4-6.5); Neutrophils % (auto) 57.3 %; Platelet Count 240 K/uL (130-400); RDW Coefficient of Variation 14.2 % (11.5-14.5); RDW Standard Deviation 47.6 fL (36.4-46.3); Red Blood Count 4.48 M/uL (4.7-6.1)
[2019-01-15 06:52] LABS: BUN Creatinine Ratio 21.9 (10-20); Calcium 8.6 mg/dl (8.5-10.1); Creatinine Clr Calc Pharmacy 47.5 ml/min; Est GFR (African American) 57.2; Est GFR (Non-African American) 49.3; Potassium 4.2 mmol/L (3.5-5.1)
[2019-01-15] MEDS: CARVEDILOL 6.25 MG TAB PO SCH (08:51)
[2019-01-15] MEDS: INSULIN GLARGINE SOLOSTAR 100 UNITS/ML 3 ML PEN SC SCH (08:53)
[2019-01-15] MEDS: INSULIN ASPART 100 UNITS/ML 3 ML PEN SC SCH (08:54)
[2019-01-15] MEDS ORDERED: CLOPIDOGREL BISULFATE 75 MG TAB PO SCH (09:00)
[2019-01-15] MEDS ORDERED: ASPIRIN 81 MG ECTAB PO SCH (09:00)
[2019-01-15] MEDS ORDERED: AMLODIPINE BESYLATE 5 MG TAB PO SCH (09:00)
[2019-01-15] MEDS ORDERED: ALLOPURINOL 100 MG TAB PO SCH (09:00)
--- NOTE | 2019-01-15 10:48 | Discharge Summary ---
Date of Service January 15, 2019 Admission HPI Per Admitting Provider Mr Stack is a pleasant 83yo male with history of CAD with prior STEMI, s/p stent placement 5 years ago, DM, HTN, HLP, CKD and Gout presenting with right sided chest pain. Pain began appx 3 weeks ago, located in the right anterior chest with radiation to the back. Sharp in nature, 10/10, lasts days. Seems to be non-positional/non-pleuritic and non-exertional. Patient denies diaphoresis/SOB/edema/weight gain or orthopnea. He has been taking pain pills at home with some relief as well as using a heating pad. 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 He reports not working over the winter and recently returned to work appx 2-3 weeks ago. 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 Patient felt a pop yesterday in his right shoulder with some relief of pain. Additionally, patient's daughter was recently admitted to [facility] and . Presently he is without chest pain. No additional complaints at this time. He was recently scheduled for an outpatient stress test but it has not yet been completed. Principal Diagnosis Costochondritis, rib dysfunction Discharge Exam Constitutional WD/WN, vitals as above Eyes PERRL, conjunctivae normal, anicteric sclerae ENMT external ear and nose normal, oropharynx normal Neck trachea midline, no thyromegaly Respiratory normal respiratory effort, lungs clear to auscultation Cardiovascular RRR, no murmur, no edema Chest (Breasts) Chest: normal inspection of chest; no mass Breast: normal inspection of axillae (on the right) and normal palpation of axillae (on right); no breast mass, no breast tenderness and no axillary mass Additional Comments: +TTP over right mid costo-sternal border with some tenderness over right mid pectoralis; also with +point tenderness over right upper back medial to the scapula Gastrointestinal (Abdomen) normal bowel sounds, soft, nontender, no hepatosplenomegaly Musculoskeletal Extremities: extremities normal to inspection; no cyanosis and no clubbing Skin no rashes, warm and dry Neurologic moves all extremities and awake; no focal motor deficits Psychiatric A+Ox3, euthymic affect Discharge Data Allergies Allergy/AdvReac Type Severity Reaction Status Date / Time No Known Allergies Allergy Verified 01/14/19 09:52 Consultations None Procedures Performed ECHO: normal LV function and valves, septum is severely hypokinetic Ordered Studies CXR Hospital Course (1) Chest pain: Atypical. 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 Had mild elevation in troponin at 0.07 and then down to 0.066 on repeat serial testing and is likely on the basis of chronic elevation in the setting of CKD. No EKG evidence of acute ischemia. ECHO with septal hypokinese-not sure if new or old, LV function preserved. 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 It only comes on with sitting up and with using his RUE. He cannot take NSAIDs due to CKD Stage III and h/o CAD. Started Voltaren gel here and he can continue this upon discharge, continue heating pad as this helped previously. Also recommend osteoathic manipulation-he will check with his PCP to see if he performs this vs referral to chiropractor. Stable for dc to home today (2) CAD (coronary artery disease): With h/o stent to the LAD after STEMI in 2014. No angina, stable. Has upcoming outpt stress test ordered which he will carry out. -Continue ASA, Plavix, Carvedilol and increased dose of statin to 40mg for high intensity No inpatient stress needed (3) History of ischemic cardiomyopathy: Presently no evidence of CHF, LV function preserved, was previously low but recovered -Continue cardiac medications as above (4) HTN (hypertension): Controlled -Continue Carvedilol -Continue Amlodipine (5) Dyslipidemia: Stable. Chronic -Increase Lipitor dose to 40mg (6) Type 2 diabetes mellitus: HGAIC=8 in October 2018. Blood sugar elevated here Continue outpt basal bolus insulin and f/u with PCP (7) CKD (chronic kidney disease) stage 3, GFR 30-59 ml/min: BUN and Cr at baseline. +UOP with no urinary difficulty reported -Avoid nephrotoxic agents -Renal dosing where advised -Monitor BUN, Cr, electrolytes and UOP as outpt (8) Gout: Chronic. Stable -Continue Allopurinol Proph- heparin SQ provided Dispo-stable for dc to home Total Time Total Time Spent Total Time Spent (In Minutes): >30 min Total Time Includes: Examination of the Patient, Discharge Planning and M edication Reconciliation Discharge Plan Discharge Items Patient Disposition: Home - Self-Care Reason For Visit: CHEST PAIN, ELEVATED TROPONIN Discharge Diagnosis: Right sided chest pain Condition: Good Discharge Goals: Decrease discomfort, Diagnostic testing, Learn about illness and Therapeutic intervention Activity: As commented below Lifting: None Lifting Comment: None with right arm Bathing: No limitations Exercise/Sports: Rest today Exercise Comment: Rest the right arm x 2 weeks Driving/Machine Use: No limitations Non-emergency contact: Primary Care Provider Call non-emergency contact if: you have any medication questions, your symptoms worsen, your pain is not controlled, your pain is worsening and your pain is unusual for you Follow-up/Referrals: Ever Perez D.O. [Primary Care Provider] - 01/18/19 8:10 am (Please, follow up with Dr. Perez on MondayJanuary 18 at 8:10 am. *If you need to change this appointment, call the office at [phone].) Diet: Carb Consistent or DM2 and Heart Healthy Addtl Provider Instructions: You were admitted with right sided chest and back pain that has been going on for 1 month and is likely related to rib dysfunction and a condition called costochondritis. This is inflammation of the cartilage between the breast bone and the rib. You can apply a heating pad as well as the Voltaren gel up to four times a day. Please talk to Dr. Perez about manipulation or a referral perhaps to a chiropractor for your issue. You DID NOT have a heart attack and I do not feel this is related to your heart. You should however keep your appointment to have your cardiac stress test. Please follow up with your PCP as scheduled for you. Prescriptions: New acetaminophen [Mapap (acetaminophen)] 325 mg Tablet 650 mg PO Q4H PRN (Reason: pain) Qty: 30 RF: 0 diclofenac sodium [Voltaren] 1 % gel 4 gm TOP QID Qty: 100 RF: 0 Continued glipizide 10 mg Tablet 10 mg PO BID RF: 0 clopidogrel 75 mg Tablet 75 mg PO DAILY RF: 0 allopurinol 100 mg Tablet 100 mg PO DAILY RF: 0 aspirin 81 mg Tablet,Delayed Release (Dr/Ec) 81 mg PO QAM RF: 0 potassium citrate 15 mEq Tablet Extended Release 1,620 mg PO DAILY RF: 0 carvedilol 6.25 mg tablet 6.25 mg PO BID RF: 0 amlodipine 2.5 mg tablet 2.5 mg PO DAILY RF: 0 metformin 1,000 mg tablet 1,000 mg PO BID RF: 0 Tresiba FlexTouch U-200 200 unit/mL (3 mL) insulin pen 10 unit subcut HS RF: 0 Daily Antibiotic 1 tab PO DAILY RF: 0 Changed atorvastatin 20 mg tablet 40 mg PO HS Qty: 60 RF: 0 Stand-Alone Forms: [facility] Discharge Orders: Discharge Order (Routine); Ordered 01/15/19 Ordered By: Renae Ziegler Admission Data Admit Date/Time: 01/14/19 10:38 Attending Provider: Renae Ziegler Admit Provider: Francie Dee Primary Care Provider: Ever Perez Other Providers: Francie Dee Service: Telemetry Other Pending Studies at Discharge: No
[2019-01-15] MEDS ORDERED: DICLOFENAC SOD 1% GEL 100 GM TUBE EXT SCH (13:00)
== END 2019-01-15 12:00 | disposition home or self-care (01) ==
LOC: ED 08:20 → 2S 08:20 → SUATTDRO 10:38 → 2S 12:35

== ENCOUNTER 2019-05-17 05:39 | Inpatient (IN) ==
[2019-05-17 06:00] LABS: Basophils # (auto) 0.04 K/uL (0-0.2); Basophils % (auto) 0.4 %; Eosinophils # (auto) 0.24 K/uL (0-0.5); Eosinophils % (auto) 2.7 %; Hematocrit (blood only) 42.2 % (42-52); Hemoglobin 14.6 g/dL (14.0-18.0); Immature Granulocytes # (auto) 0.12 K/uL (0.00-0.02); Immature Granulocytes % (auto) 1.3 %; Lymphocytes # (auto) 1.72 K/uL (1.2-3.4); Lymphocytes % (auto) 19.1 %; Mean Corpuscular Hemoglobin 33.6 pg (25-34); Mean Corpuscular Hgb Conc 34.6 g/dL (32-36); Mean Platelet Volume 10.4 fL (7.4-10.4); Monocytes # (auto) 0.82 K/uL (0.11-0.59); Monocytes % (auto) 9.1 %; Neutrophils # (auto) 6.05 K/uL (1.4-6.5); Neutrophils % (auto) 67.4 %; Platelet Count 313 K/uL (130-400); RDW Coefficient of Variation 14.1 % (11.5-14.5); RDW Standard Deviation 50.3 fL (36.4-46.3); Red Blood Count 4.35 M/uL (4.7-6.1); White Blood Count 8.99 K/uL (4.8-10.8)
[2019-05-17 06:09] LABS: iSTAT Creatinine 1.4 mg/dl (0.6-1.3); iSTAT Ionized Calcium 1.22 mmol/l (1.12-1.32); iSTAT Potassium 4.6 mEq/L (3.3-5.0)
[2019-05-17] MEDS ORDERED: OPTIRAY 320 125ml IV PRN (06:10)
[2019-05-17] MEDS ORDERED: TPA for Stroke IV STA (06:10)
[2019-05-17 06:15] LABS: Partial Thromboplastin Ratio 0.9; Partial Thromboplastin Time 25.5 Seconds (21.0-31.0); Prothrombin Time 10.7 Seconds (9.0-12.0)
[2019-05-17 06:16] LABS: Alanine Aminotransferase 90 U/L (12-78); Albumin Level 3.8 gm/dl (3.4-5.0); Aspartate Aminotransferase 118 U/L (15-37); BUN Creatinine Ratio 28.2 (10-20); Blood Urea Nitrogen 45 mg/dl (7-18); Calcium 9.2 mg/dl (8.5-10.1); Carbon Dioxide 26 mmol/L (21-32); Chloride 107 mmol/L (98-107); Est GFR (African American) 45.8; Est GFR (Non-African American) 39.5; Glucose 212 mg/dl (70-99); Magnesium 1.6 mg/dl (1.8-2.4); Potassium 4.5 mmol/L (3.5-5.1); Sodium 141 mmol/L (136-145)
[2019-05-17] MEDS ORDERED: Alteplase Bolus 8 MG in SYRINGE 0 ML IV ONE (06:20)
[2019-05-17] MEDS ORDERED: ALTEPLASE, RECOMBINANT 72 MG in EMPTY BAG 0 ML IV ONE (06:21)
[2019-05-17] MEDS ORDERED: PRIMARY PLUMSET, PE LINED TUBING, 113 IN, NON-DEHP (2260-0500) IV ONE (06:21)
[2019-05-17 06:25] LABS: Albumin Globulin Ratio 0.9 (0.9-2); Alkaline Phosphatase 60 U/L (45-117); Bilirubin,Total 0.5 mg/dl (0.2-1); Globulin 4.1 gm/dl (2.5-4.0); Total Protein 7.9 gm/dl (6.4-8.2); Troponin I 0.227 ng/ml (0-0.045)
--- NOTE | 2019-05-17 06:26 | CT Scan Report ---
CT head/brain wo con CT DOSE: 614.27 mGy.cm HISTORY: Stroke Stroke evaluation TECHNIQUE: Multiaxial CT images of the head were performed without the use of intravenous contrast. A dose lowering technique was utilized adhering to the principles of ALARA. Comparison: None. Findings: The paranasal sinuses and mastoid air cells are clear. Possible small subacute infarct left occipital lobe. Findings of age-related atrophy and moderate chronic small vessel change. No evidenc e for acute intracranial hemorrhage. Impression: 1. Potential small focus of subacute ischemic change left occipital lobe. 2. Atrophy and chronic small vessel change. 3. No acute intracranial hemorrhage. The above report was generated using voice recognition software. It may contain grammatical, syntax or spelling errors. Electronically signed by: Davie Carnes M.D. 05/17/2019 6:25 AM
--- NOTE | 2019-05-17 06:52 | CT Scan Report ---
CT angio head w con CLINICAL HISTORY: stroke like symptoms TECHNIQUE: CT angiography of the head was performed in a dynamic helical fashion during intravenous a dministration of 118 cc of Optiray 320. MIP imaging was performed. A dose lowering technique was util ized adhering to the principles of ALARA. CT DOSE: 594.76 mGy.cm COMPARISON STUDY: No previous studies for comparison. FINDINGS: The high cervical left internal carotid artery is occluded with reconstitution at the marito us segmental level. There are no lesion suspicious for aneurysm. There is left occipital hypodensity, suspicious for an infarct. The dural venous sinuses appear patent. IMPRESSION: 1. No evidence of aneurysm 2. 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 Possible left occipital infarct an MRI is recommended in follow-up. Electronically signed by: Rakesh Cardoso M.D. 05/17/2019 6:50 AM
--- NOTE | 2019-05-17 06:57 | CT Scan Report ---
CT angio neck with con HISTORY: stroke like symptoms TECHNIQUE: Multiaxial CT angiography of the neck was performed IV contrast: 100 cc All measurements were calculated based on NASCET criteria. Maximum intensity projection images were also obtained. A dose lowering technique was utilized adhering to the principles of ALARA. COMPARISON STUDY: None. FINDINGS: 70% stenosis origin right internal carotid artery. Second focus of 70-80% stenosis approxim ately 2 cm from the right bifurcation. Occlusion left internal carotid artery at its origin. Trace amount of collateral reconstitution versu s retrograde flow from the contralateral right carotid system. The vertebral basilar system shows the left vertebral artery to be dominant. High-grade stenosis left vertebral artery at the level of C4. Minimal flow and/or complete occlusion of the proximal left radha tebral artery. The right vertebral artery is patent but is small in caliber. IMPRESSION: 1. 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 2. Trace collateral reconstitution distally versus retrograde flow from the contralateral right carot id system. 3. 70% multifocal stenosis origin right internal carotid artery with a second focus 2 cm from the rig ht bifurcation. 4. Occlusion proximal left vertebral artery with mild collateral flow demonstrated at the level of C4 . 5. At the level of C4 1 second high-grade stenosis is identified. 6. Congenitally small right vertebral artery although it shows no significant stenotic change. The above report was generated using voice recognition software. It may contain grammatical, syntax or spelling errors. Electronically signed by: Davie Carnes M.D. 05/17/2019 6:56 AM
--- NOTE | 2019-05-17 07:17 | Emergency Department Note ---
ED Provider Note Name: Sharita Stack Age: 84 M Arrives Via: POV Informant: Significant Other, Friends CC: AMS HPI: 84 male arrives for evaluation of ams. Patient with history CAD, DMII, HTN, DLP, STEMI (DEX 03/2015), CKD, Neuropathy, Diabetic ulcers arrives from home. Patient was normal at 4:20 this morning when he got up and was dressing. He talked on phone with friend to take him to hospital for a left 2nd toe ampu tation (diabetic ulcer). At that time he was speaking without difficulty and seemed himself. His significant other notes he was his normal self when he woke up and she went to kitchen. On arrival to the house the family friends noted he was unable to speak, altered and couldn't walk. Brought emergently to ED via private vehicle. Per significant other (girlfriend of 40 years) patient with 2 episodes of slurred speech and mild confusion over the last week. Seen by PCP 5 days ago and told he probably had a mild stroke that resolved. He has been off his ASA/Plavix over the last 10 days in prep for left 2nd toe removal. He has no history of stroke prior to this. She denies any recent complaints of chest pain, sob, headache, neck pain, bleeding nor other symptoms. Patient is able to node yes/no to some questions and denies any symptoms other than he is very much aware he can not speak. Denies recent black/bloody stools, trauma. He denies taking any medications this morning. He has taken no pain medications recently either. ROS: See above HPI for pertinent positives & negatives. A total of 10 systems reviewed and were otherwise negative. Past Medical History: CAD, DMII, HTN, DLP, STEMI (DEX 03/2015), CKD, Neuropathy, Diabetic ulcers arrives Past Surgical History: Cadiac Cath, Orthopedic surg Family History: Mother and father of old age. Daughter of pneumonia Social History: Lives with significant other. No etoh, drugs, tobacco. Retired Home Medications: See Below Allergies Atorvastatin, Potassium Physical: Vitals: BP 140/84, P 82, R 18, O2 97%, Temp 36.4 Exam: GENERAL: Patient is elderly appearing and in no acute distress. Appears slightly confused. EYES: No scleral icterus, unremarkable pupils. ENT: Mucous membranes moist, no nasal congestion. NECK: No masses appreciated, no meningismus, trachea is midline. RESPIRATORY: No dyspnea. Clear to auscultation and equal bilaterally. No wheeze, no rhonchi. CARDIOVASCULAR: Regular rate and rhythm. No murmurs, rubs, gallops appreciated. GASTROINTESTINAL: Abdomen soft, non-tender, no peritonitis. Bowel sounds positive. No masses appreciated. BACK: No midline tenderness, no CVA tenderness EXTREMITIES: Normal motion all extremities, no cyanosis, no edema. NEUROLOGIC: Non verbal, left gaze preferance, left facial droop, 4/4 strength all extremities, tongue deviation to left. Sensation intact. SKIN: No rash, no jaundice, no diaphoresis. ED Course: Prior Medical Record, Triage/Nursing Notes, Medications, Allergies reviewed by Me Vital Signs: reviewed and remarkable for wnl Labs: Reviewed and remarkable for positive troponin Interventions: Saline Lock, TPA IV Imaging: [facility] Radiologist interpretation reviewed by me: CT head w/wo con, ct neck w: Possible left occipital stroke, blocked left IA/Vert arteries. EKG: Per My Interpretation: Indication Stroke: Sinus 97bpm qtc 482, multiple PAC, no ischemia, no stemi. RBBB. Similar to previous EKG Blood pressure: Elevated - Referred to hospitalist Course: 5:44a Initial Eval after Nursing alerted me to patient in department and during my evaluation I alerted stroke alert and patient taken to CT. Orders placed. 5:54a Asked for Neuro to be paged given no large bleed on CT by my read 6:03a Discussed case with Dr Berry Neuro 6:05a Agrees with plan to Mix TPA 6:10a Finally able to order TPA as unable to get weight 6:15a Dr Berry on Telestroke monitor. Audio not working. Discussed case over phone with him. 6:22a Verbal order to give TPA to nurses by me. 6:30a Bolus TPA given 7:00a Patient stable 7:30a Patient mildly restless though denies complaints 8:00a Patient Sleeping 8:10a Dr Fajardo in to evaluate patient. Consults: Dr Kristi Lamb Neuro 6:03am. Dr Fajardo [facility] Hospitalist 7:20am to evaluate. Disposition: Hospitalization Differentials: Stroke, Hypoglycemia, ACS, ICH, Infection, Electrolyte imbalance, seizure, amongst other pathologies. Medical Decision Makin yr old male with complex PMH with planned left 2nd toe amputation who has been off his ASA/Plavix for 10 days in prep for amputation arrives with stroke like symptoms with initial NIH ~7. Stroke alert initiated. CT with questionable acute/subacute infarct. Zainab Neuro on board, evaluating patient (note issues with telestroke cart sound thus direct call during video eval). With knowledge of findings on CT felt that given severity of symptoms TPA indicated. Checklist clear. Verbal consent from family (risks benefits described in detail and percentages) and 2 docs feel that TPA indicated. Patient nodes yes to getting TPA as well. Vitals stable. TPA at bedside and verbal order to give by me. There was a bit of a delay prior to TPA actually being given as nursing checklist being done. Patient stable throughout this. Questionable mild improvement post TPA followed by some restlessness but no complaints. Monitored closely. CTA does show significant stenosis left IA/Vert but good blood flow in brain itself. Neuro agrees no indication to transfer at this time. Trop is elevated of uncertain significance, which given cardiac history and his renal insufficiency could be baseline. Furthermore could be he is having episodes of arrythymia which threw cva clots. Regardless with TPA given would hold off on ASA at this time. Impression: Acute Cerebral Ischemia Elevated Troponin Critical Care Time: I have personally spent greater than 90 minutes of critical care time in the direct management of this patient. Acute stroke requiring TPA. This was a life/limb threatening event. This includes time spent evaluating patient, direct bedside care, chart review, placing orders, interpretation of diagnostic studies, discussion with consultants, patient, and family members, as well as other required patient management activities. This 90 minutes is in excess of all separately billable procedures. 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 Feels Safe at Home: Yes Smoking Status: Unknown if ever smoked Hx Alcohol Use: No Hx Substance Use: No Results & Data Vital Signs Vital Signs - 24 hr 05/17/19 05:42 05/17/19 05:45 05/17/19 06:06 Temperature Temperature Source Sepsis Recent Fever Within 48 Hours Sepsis New/Unexplained Change in Mental Status Sepsis Action Taken by Nursing Pulse Rate 88 95 H 89 Pulse Rate [Right Finger] Pulse Rate from SpO2 Sensor 85 92 H Pulse Rhythm [Right Finger] Pulse Strength [Right Finger] Respiratory Rate 29 H 24 12 Respiratory Effort / Characteristics Respiratory Depth Respiratory Pattern Blood Pressure 152/82 H Blood Pressure [Right Arm] Blood Pressure Mean 105 Blood Pressure Mean [Right Arm] Blood Pressure Position [Right Arm] Pulse Oximetry 95 94 Oxygen Delivery Method 05/17/19 06:08 05/17/19 06:12 05/17/19 06:13 Temperature 36.4 C L Temperature Source Oral Sepsis Recent Fever Within 48 Hours No Sepsis New/Unexplained Change in Mental Status No Sepsis Action Taken by Nursing No Action Required Pulse Rate 96 H 92 H 89 Pulse Rate [Right Finger] Pulse Rate from SpO2 Sensor 88 80 Pulse Rhythm [Right Finger] Pulse Strength [Right Finger] Respiratory Rate 18 Respiratory Effort / Characteristics Respiratory Depth Respiratory Pattern Blood Pressure 152/82 H 147/87 H Blood Pressure [Right Arm] Blood Pressure Mean 105 107 Blood Pressure Mean [Right Arm] Blood Pressure Position [Right Arm] Pulse Oximetry 93 93 94 Oxygen Delivery Method 05/17/19 06:15 05/17/19 06:20 05/17/19 06:21 Temperature Temperature Source Sepsis Recent Fever Within 48 Hours Sepsis New/Unexplained Change in Mental Status Sepsis Action Taken by Nursing Pulse Rate 88 90 88 Pulse Rate [Right Finger] Pulse Rate from SpO2 Sensor 88 84 83 Pulse Rhythm [Right Finger] Pulse Strength [Right Finger] Respiratory Rate Respiratory Effort / Characteristics Respiratory Depth Respiratory Pattern Blood Pressure 138/81 114/68 Blood Pressure [Right Arm] Blood Pressure Mean 100 83 Blood Pressure Mean [Right Arm] Blood Pressure Position [Right Arm] Pulse Oximetry 95 90 90 Oxygen Delivery Method 05/17/19 06:22 05/17/19 06:25 05/17/19 06:30 Temperature Temperature Source Sepsis Recent Fever Within 48 Hours Sepsis New/Unexplained Change in Mental Status Sepsis Action Taken by Nursing Pulse Rate 85 85 Pulse Rate [Right Finger] 87 83 Pulse Rate from SpO2 Sensor 85 82 Pulse Rhythm [Right Finger] Regular Pulse Strength [Right Finger] Normal Respiratory Rate 23 18 Respiratory Effort / Characteristics Non-Labored Respiratory Depth Normal Respiratory Pattern Regular Blood Pressure 134/75 Blood Pressure [Right Arm] 114/68 153/78 H Blood Pressure Mean 94 Blood Pressure Mean [Right Arm] 83 103 Blood Pressure Position [Right Arm] Sitting Pulse Oximetry 94 96 97 Oxygen Delivery Method Room Air Room Air 05/17/19 06:31 05/17/19 06:35 05/17/19 06:40 Temperature Temperature Source Sepsis Recent Fever Within 48 Hours Sepsis New/Unexplained Change in Mental Status Sepsis Action Taken by Nursing Pulse Rate 85 83 79 Pulse Rate [Right Finger] Pulse Rate from SpO2 Sensor 78 81 83 Pulse Rhythm [Right Finger] Pulse Strength [Right Finger] Respiratory Rate Respiratory Effort / Characteristics Respiratory Depth Respiratory Pattern Blood Pressure 153/78 H 136/84 145/77 H Blood Pressure [Right Arm] Blood Pressure Mean 103 101 99 Blood Pressure Mean [Right Arm] Blood Pressure Position [Right Arm] Pulse Oximetry 96 93 94 Oxygen Delivery Method 05/17/19 06:45 05/17/19 06:50 05/17/19 06:55 Temperature Temperature Source Sepsis Recent Fever Within 48 Hours Sepsis New/Unexplained Change in Mental Status Sepsis Action Taken by Nursing Pulse Rate 83 81 87 Pulse Rate [Right Finger] 82 Pulse Rate from SpO2 Sensor 82 81 80 Pulse Rhythm [Right Finger] Regular Pulse Strength [Right Finger] Normal Respiratory Rate 18 Respiratory Effort / Characteristics Non-Labored Spontaneous Respiratory Depth Normal Respiratory Pattern Regular Blood Pressure 140/84 138/84 151/84 H Blood Pressure [Right Arm] 140/84 Blood Pressure Mean 102 102 106 Blood Pressure Mean [Right Arm] 102 Blood Pressure Position [Right Arm] Lying Pulse Oximetry 94 96 93 Oxygen Delivery Method Room Air 05/17/19 07:00 05/17/19 07:05 05/17/19 07:10 Temperature Temperature Source Sepsis Recent Fever Within 48 Hours Sepsis New/Unexplained Change in Mental Status Sepsis Action Taken by Nursing Pulse Rate 83 82 83 Pulse Rate [Right Finger] Pulse Rate from SpO2 Sensor 78 79 80 Pulse Rhythm [Right Finger] Pulse Strength [Right Finger] Respiratory Rate Respiratory Effort / Characteristics Respiratory Depth Respiratory Pattern Blood Pressure 154/83 H 144/78 H 138/96 Blood Pressure [Right Arm] Blood Pressure Mean 106 100 110 Blood Pressure Mean [Right Arm] Blood Pressure Position [Right Arm] Pulse Oximetry 94 92 92 Oxygen Delivery Method 05/17/19 07:15 05/17/19 07:20 05/17/19 07:27 Temperature Temperature Source Sepsis Recent Fever Within 48 Hours Sepsis New/Unexplained Change in Mental Status Sepsis Action Taken by Nursing Pulse Rate 87 88 86 Pulse Rate [Right Finger] Pulse Rate from SpO2 Sensor 84 84 86 Pulse Rhythm [Right Finger] Pulse Strength [Right Finger] Respiratory Rate Respiratory Effort / Characteristics Respiratory Depth Respiratory Pattern Blood Pressure 143/90 H 145/102 H 135/84 Blood Pressure [Right Arm] Blood Pressure Mean 107 116 101 Blood Pressure Mean [Right Arm] Blood Pressure Position [Right Arm] Pulse Oximetry 94 94 90 Oxygen Delivery Method 05/17/19 07:30 Temperature Temperature Source Sepsis Recent Fever Within 48 Hours Sepsis New/Unexplained Change in Mental Status Sepsis Action Taken by Nursing Pulse Rate 90 Pulse Rate [Right Finger] Pulse Rate from SpO2 Sensor 77 Pulse Rhythm [Right Finger] Pulse Strength [Right Finger] Respiratory Rate Respiratory Effort / Characteristics Respiratory Depth Respiratory Pattern Blood Pressure Blood Pressure [Right Arm] Blood Pressure Mean Blood Pressure Mean [Right Arm] Blood Pressure Position [Right Arm] Pulse Oximetry 93 Oxygen Delivery Method Laboratory Data Result diagrams: 05/17/19 05:50 05/17/19 05:50 Lab Results 05/17/19 05/17/19 05/17/19 Range/Units 05:43 05:50 05:50 WBC 8.99 (4.8-10.8) K/uL RBC 4.35 L (4.7-6.1) M/uL Hgb 14.6 (14.0-18.0) g/dL POC Hgb (14.0-18.0) g/dl Hct 42.2 (42-52) % POC Hct (42-52) % MCV 97.0 (80-100) fL MCH 33.6 (25-34) pg MCHC 34.6 (32-36) g/dL RDW Std Deviation 50.3 H (36.4-46.3) fL RDW Coeff of Rachel 14.1 (11.5-14.5) % Plt Count 313 (130-400) K/uL MPV 10.4 (7.4-10.4) fL Immature Gran % (Auto) 1.3 % Neut % (Auto) 67.4 % Lymph % (Auto) 19.1 % Gates % (Auto) 9.1 % Eos % (Auto) 2.7 % Baso % (Auto) 0.4 % Immature Gran # (Auto) 0.12 H (0.00-0.02) K/uL Neut # (Auto) 6.05 (1.4-6.5) K/uL Lymph # (Auto) 1.72 (1.2-3.4) K/uL Gates # (Auto) 0.82 H (0.11-0.59) K/uL Eos # (Auto) 0.24 (0-0.5) K/uL Baso # (Auto) 0.04 (0-0.2) K/uL PT 10.7 (9.0-12.0) Seconds INR 1.0 (0.9-1.1) APTT 25.5 (21.0-31.0) Seconds PTT Ratio 0.9 POC Sodium (135-144) mEq/L Sodium (136-145) mmol/L POC Potassium (3.3-5.0) mEq/L Potassium (3.5-5.1) mmol/L POC Chloride (101-112) mEq/L Chloride (98-107) mmol/L Carbon Dioxide (21-32) mmol/L POC Total CO2 (24-31) mEq/l Anion Gap (3-11) POC Anion Gap (16-25) mmol/L POC BUN (7-18) mg/dl BUN (7-18) mg/dl Creatinine (0.6-1.4) mg/dl POC Creatinine (0.6-1.3) mg/dl Est Cr Clr Drug Dosing Est GFR ( Amer) Est GFR (Non-Af Amer) BUN/Creatinine Ratio (10-20) Glucose (70-99) mg/dl POC Glucose 191 H (70-99) POC Glucose (other) (70-99) mg/dl Calcium (8.5-10.1) mg/dl POC Ioniz Calcium Mega (1.12-1.32) mmol/l Magnesium (1.8-2.4) mg/dl Total Bilirubin (0.2-1) mg/dl AST (15-37) U/L ALT (12-78) U/L Alkaline Phosphatase (45-117) U/L Troponin I (0-0.045) ng/ml Total Protein (6.4-8.2) gm/dl Albumin (3.4-5.0) gm/dl Globulin (2.5-4.0) gm/dl Albumin/Globulin Ratio (0.9-2) Blood Type Antibody Screen 05/17/19 05/17/19 05/17/19 Range/Units 05:50 05:56 06:05 WBC (4.8-10.8) K/uL RBC (4.7-6.1) M/uL Hgb (14.0-18.0) g/dL POC Hgb 15.0 (14.0-18.0) g/dl Hct (42-52) % POC Hct 44 (42-52) % MCV (80-100) fL MCH (25-34) pg MCHC (32-36) g/dL RDW Std Deviation (36.4-46.3) fL RDW Coeff of Rachel (11.5-14.5) % Plt Count (130-400) K/uL MPV (7.4-10.4) fL Immature Gran % (Auto) % Neut % (Auto) % Lymph % (Auto) % Gates % (Auto) % Eos % (Auto) % Baso % (Auto) % Immature Gran # (Auto) (0.00-0.02) K/uL Neut # (Auto) (1.4-6.5) K/uL Lymph # (Auto) (1.2-3.4) K/uL Gates # (Auto) (0.11-0.59) K/uL Eos # (Auto) (0-0.5) K/uL Baso # (Auto) (0-0.2) K/uL PT (9.0-12.0) Seconds INR (0.9-1.1) APTT (21.0-31.0) Seconds PTT Ratio POC Sodium 142 (135-144) mEq/L Sodium 141 (136-145) mmol/L POC Potassium 4.6 (3.3-5.0) mEq/L Potassium 4.5 (3.5-5.1) mmol/L POC Chloride 105 (101-112) mEq/L Chloride 107 (98-107) mmol/L Carbon Dioxide 26 (21-32) mmol/L POC Total CO2 24 (24-31) mEq/l Anion Gap 8.0 (3-11) POC Anion Gap 18.0 (16-25) mmol/L POC BUN 42 H (7-18) mg/dl BUN 45 H (7-18) mg/dl Creatinine 1.60 H (0.6-1.4) mg/dl POC Creatinine 1.4 H (0.6-1.3) mg/dl Est Cr Clr Drug Dosing Not Reportable Est GFR ( Amer) 45.8 Est GFR (Non-Af Amer) 39.5 BUN/Creatinine Ratio 28.2 H (10-20) Glucose 212 H (70-99) mg/dl POC Glucose (70-99) POC Glucose (other) 211 H (70-99) mg/dl Calcium 9.2 (8.5-10.1) mg/dl POC Ioniz Calcium Mega 1.22 (1.12-1.32) mmol/l Magnesium 1.6 L (1.8-2.4) mg/dl Total Bilirubin 0.5 (0.2-1) mg/dl AST 118 H (15-37) U/L ALT 90 H (12-78) U/L Alkaline Phosphatase 60 (45-117) U/L Troponin I 0.227 H* (0-0.045) ng/ml Total Protein 7.9 (6.4-8.2) gm/dl Albumin 3.8 (3.4-5.0) gm/dl Globulin 4.1 H (2.5-4.0) gm/dl Albumin/Globulin Ratio 0.9 (0.9-2) Blood Type A Positive Antibody Screen NEGATIVE Administered Medications Ioversol (Optiray 320 125ml) 125 ml IV ONCE PRN PRN Reason: Interaction Checking Stop: 05/21/19 06:09 Last Admin: 05/17/19 06:10 Dose: 118 ml Documented by: [id number] Discontinued Medications Alteplase, Recombinant (Activase For Stroke) 1 ea IV NOW STA; Protocol Stop: 05/17/19 06:11 Last Admin: 05/17/19 07:08 Dose: Not Given Documented by: [id number] Alteplase, Recombinant 8 mg/ (Syringe) 8 mls @ 8 mls/min IV ONCE ONE Stop: 05/17/19 06:21 Last Admin: 05/17/19 06:26 Dose: 8 mls/min Documented by: [id number] Cosigned by: [id number] Alteplase, Recombinant 72 mg/ (EMPTY BAG) 72 mls @ 72 mls/hr IV ONCE ONE Stop: 05/17/19 06:22 Last Infusion: 05/17/19 07:37 Dose: 0 mls/hr Documented by: [id number] Cosigned by: [id number] Admin: 05/17/19 06:28 Dose: 72 mls/hr Documented by: [id number] Cosigned by: [id number] Discharge Plan Visit Data Chief Complaint: Altered Mental Status Stated Complaint: UNRESPONSIVE ED Provider: Tristen Salguero Discharge Problem: Acute cerebral ischemia, Elevated troponin Discharge Instructions Interventions: ED Discharge Assessment Last Done: 05/17/19 08:11
[2019-05-17] MEDS ORDERED: ONDANSETRON INJ 2 MG/ML 2 ML VIAL IV PRN (08:44)
[2019-05-17] MEDS ORDERED: HydrALAZINE HCL 20 MG/ML VIAL IV PRN (08:44)
[2019-05-17] MEDS ORDERED: ICU PROTOCOL FOR HYPERGLYCEMIA PRN (08:44)
[2019-05-17] MEDS ORDERED: INSULIN ASPART 100 UNITS/ML 3 ML PEN SC SCH (08:44)
[2019-05-17] MEDS ORDERED: PHARMACIST DISCHARGE MED REC CONSULT PRN (08:48)
--- NOTE | 2019-05-17 09:28 | History & Physical Report ---
Date of Service May 17, 2019 Assessment & Plan (1) Acute cerebral ischemia: symptoms started abruptly at 430am according to family and friends he could not speak, was essentially unresponsive but could follow commands, was able to walk to the car the family did not notice and focal motor deficits he had a right facial droop and some right sided neglect in the ED stroke alert called, given tPA after evaluation by tele stroke neurologist CT head with possible ischemic change in left occipital lobe CTA neck with advanced carotid artery disease, total occlusion on the left, 70% on the right admit to ICU, tPA order set, vitals and neuro checks per protocol MRI brain echocardiogram lipid panel consult neurology Hydralazine PRN for SBP > 185 since he got tPA PT/OT ordered keep NPO since he failed bedside dysphagia screen, speech therapy consulted for further evaluation most likely etiology would be small vessel ischemia but also severe carotid disease, he was off his Aspirin and Plavix in anticipation of toe surgery today he was off the medications for 7-10 days (2) Carotid arterial disease: severe disease, total occlusion on left ICA and 70% on the right ICA may need vascular consult given acute stroke will discuss with neurology (3) Ulcer of toe of left foot: was planned for surgery, possible amputation today cancelled due to acute stroke (4) Toe ulcer due to DM: (5) Type 2 diabetes mellitus: Novolog SS ordered hold oral agents, not taking PO once he can safely swallow will order diabetic diet (6) PAD (peripheral artery disease): patient typically on aspirin and Plavix these were held for surgery continue to hold for 24 hours after tPA (7) CAD (coronary artery disease): no chest pain reported to family prior to becoming aphasic aspirin and Plavix once able to take PO (8) CKD (chronic kidney disease) stage 3, GFR 30-59 ml/min: Cr is 1.6 with calculated GFR at baseline range monitor tomorrow (9) HTN (hypertension): hold oral agents, he did not take any BP medications today Hydralazine PRN for SBP > 185 since he received tPA (10) Dyslipidemia: check lipid panel tomorrow AM hold statin until he can take PO (11) History of ischemic cardiomyopathy: prior history, most recent echocardiogram had showed EF of 55% examines euvolemic History of Present Illness Chief Complaint: no response, patient cannot speak Primary Care Provider: Ever Perez 84 yo male with history of DM type II, severe PAD, CAD, HTN, dyslipidemia and recent history of left 1st and 2nd toe diabetic ulcers failing to heal, presented to the ED via family vehicle after he experienced sudden change in responsiveness at 430am this morning. The patient was awake already because he was planning on coming to the hospital for surgery on his 1st and 2nd toe. According to his and family friend he was normal at 4am, no issues speaking. Abrupt change occurred at 430am, he would not speak, would not respond to family and friends. Family noted a left facial droop. He was moving all his extremities, able to walk without difficulty. He could not express if he had any other symptoms because he could not talk. He was able to understand instructions as he walked to the car with family and came to the emergency room. According to patient's he was acting normal the past few days, she did not notice anything different. He had stopped his aspirin and Plavix as instructed, this happened over a week ago. He had not complained of any fever or chills, no chest pain, no dyspnea, no abdominal pain or vomiting. He had been eating well up until last night and then was NPO after midnight for surgery this morning. He did not eat this morning, did not take any medications. In the ED he was found to have expressive aphasia, he had a left facial droop, he had right sided neglect. No focal motor deficits. Stroke alert called since he was within the 3 hour window and symptoms not improving he was given tPA. The left sided facial droop resolved but he still had aphasia. Allergies Allergy/AdvReac Type Severity Reaction Status Date / Time atorvastatin Allergy Unknown Verified 05/17/19 05:57 potassium Allergy Unknown Verified 05/17/19 05:57 Home Medications Home Medications Medication Instructions Recorded Confirmed Type metformin 1,000 mg PO BID 01/14/19 05/17/19 History aspirin 81 mg tablet,delayed 81 mg PO DAILY tab 05/08/19 05/17/19 History release clopidogrel 75 mg tablet 75 mg PO DAILY tab 05/08/19 05/17/19 History finasteride 5 mg tablet 5 mg PO DAILY #30 tab 05/08/19 05/17/19 History glipizide 10 mg tablet 10 mg PO BID 05/08/19 05/17/19 History hydrocodone 5 mg-acetaminophen 325 1 tab PO Q6H PRN 05/08/19 05/17/19 History mg tablet polyethylene glycol 3350 17 17 gm PO DAILY #1 gm 05/08/19 05/17/19 History gram/dose oral powder semaglutide 0.25 mg or 0.5 mg (2 0.25 mg SQ WEEKLY ml 05/08/19 05/17/19 History mg/1.5 mL) subcutaneous pen injector sildenafil (antihypertensive) 20 100 mg PO DAILY PRN #30 tab 05/08/19 05/17/19 History mg tablet tamsulosin 0.4 mg capsule 0.4 mg PO DAILY cap 05/08/19 05/17/19 History temazepam 15 mg capsule 15 mg PO DAILY cap 05/08/19 05/17/19 History carvedilol 6.25 mg PO BID 05/17/19 05/17/19 History potassium citrate 10 meq PO DAILY 05/17/19 05/17/19 History triamcinolone acetonide 1 applic TOPICAL BID 05/17/19 05/17/19 History Past Med/Surg History Social History Preferred Language: [place] Communication Ability: NEW APHASI Visual Impairment: No Limitations Documentation Liaison Required: No Beliefs That Will Affect Care: None Current Living Situation: Spouse Current Living Situation Comment: lives in [place] with ; 1 biological daughter (has been twice) 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 occupational 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 Feels Safe at Home: Yes Smoking Status: Former smoker Tobacco Type: cigarettes ; Cigarettes Per Day: 1/2 ppd ; Second Hand Exposure: No ; Hx Alcohol Use: No Hx Substance Use: No Review of Systems Review of Systems: Unobtainable due to cognitive status (unable to speak, will not respond yes/no) Physical Exam Constitutional: WD/WN, vitals as above Eyes: PERRL, conjunctivae normal, anicteric sclerae ENMT: external ear and nose normal, oropharynx normal Neck: trachea midline, no thyromegaly Respiratory: normal respiratory effort, lungs clear to auscultation Cardiovascular: RRR, no murmur, no edema Gastrointestinal (Abdomen): normal bowel sounds, soft, nontender, no hepatosplenomegaly Musculoskeletal: no cyanosis or clubbing, extremities motor strength 5/5 Skin: no rashes, warm and dry Neurologic: patellar DTR's 2+ bilat, sensation intact + confused; no focal motor deficits Speech / Cognition: + expressive aphasia and + abnormal cognition (not understanding all commands) Motor/Sensory: no tremor, normal movement, no pronator drift and no asterixis Cranial Nerves: PERRL, normal facial strength, tongue midline, normal hearing and symmetric palate elevation; + EOM not intact (eyes will not cross midline to right, moves his head to follow finger) Coordination: normal [id number] test (could not follow the command) Psychiatric: Orientation: alert; + not oriented x 3 (unable to accurately assess) Apperance: appeared stated age Eye Contact: + poor eye contact Lymphatic: no cervical or axillary lymphadenopathy Results & Data Vital Signs (Past 12 Hours) Vital Signs Temp Pulse Pulse Resp BP BP Pulse Ox 05/17/19 08:16 87 155/87 H 94 05/17/19 08:11 91 H 20 125/89 92 05/17/19 08:10 87 91 05/17/19 08:05 86 142/88 H 91 05/17/19 08:00 88 140/85 91 05/17/19 07:55 91 H 133/84 92 05/17/19 07:50 88 134/76 92 05/17/19 07:46 90 138/96 92 05/17/19 07:40 86 137/79 92 05/17/19 07:36 87 143/78 H 94 05/17/19 07:31 85 129/78 93 05/17/19 07:30 90 93 05/17/19 07:27 86 135/84 90 05/17/19 07:20 88 145/102 H 94 05/17/19 07:15 87 143/90 H 94 05/17/19 07:10 83 138/96 92 05/17/19 07:05 82 144/78 H 92 05/17/19 07:00 83 154/83 H 94 05/17/19 06:55 87 151/84 H 93 05/17/19 06:50 81 138/84 96 05/17/19 06:45 83 82 18 140/84 140/84 94 05/17/19 06:40 79 145/77 H 94 05/17/19 06:35 83 136/84 93 05/17/19 06:31 85 153/78 H 96 05/17/19 06:30 85 83 18 153/78 H 97 05/17/19 06:25 85 134/75 96 05/17/19 06:22 87 23 114/68 94 05/17/19 06:21 88 114/68 90 05/17/19 06:20 90 90 05/17/19 06:15 88 138/81 95 05/17/19 06:13 89 147/87 H 94 05/17/19 06:12 92 H 93 05/17/19 06:08 36.4 C L 96 H 18 152/82 H 93 05/17/19 06:06 89 12 05/17/19 05:45 95 H 24 94 05/17/19 05:42 88 29 H 152/82 H 95 Laboratory Results Laboratory Results - last 24 hr 05/17/19 05/17/19 05/17/19 05:43 05:50 05:50 WBC 8.99 RBC 4.35 L Hgb 14.6 POC Hgb Hct 42.2 POC Hct MCV 97.0 MCH 33.6 MCHC 34.6 RDW Std Deviation 50.3 H RDW Coeff of Rachel 14.1 Plt Count 313 MPV 10.4 Immature Gran % (Auto) 1.3 Neut % (Auto) 67.4 Lymph % (Auto) 19.1 [place] % (Auto) 9.1 Eos % (Auto) 2.7 Baso % (Auto) 0.4 Immature Gran # (Auto) 0.12 H Neut # (Auto) 6.05 Lymph # (Auto) 1.72 [place] # (Auto) 0.82 H Eos # (Auto) 0.24 Baso # (Auto) 0.04 PT 10.7 INR 1.0 APTT 25.5 PTT Ratio 0.9 POC Sodium Sodium POC Potassium Potassium POC Chloride Chloride Carbon Dioxide POC Total CO2 Anion Gap POC Anion Gap POC BUN BUN Creatinine POC Creatinine Est Cr Clr Drug Dosing Est GFR ( Amer) Est GFR (Non-Af Amer) BUN/Creatinine Ratio Glucose POC Glucose 191 H POC Glucose (other) Calcium POC Ioniz Calcium Mega Magnesium Total Bilirubin AST ALT Alkaline Phosphatase Troponin I Total Protein Albumin Globulin Albumin/Globulin Ratio Nasal Screen MRSA (PCR) Blood Type Antibody Screen 05/17/19 05/17/19 05/17/19 05:50 05:56 06:05 WBC RBC Hgb POC Hgb 15.0 Hct POC Hct 44 MCV MCH MCHC RDW Std Deviation RDW Coeff of Rachel Plt Count MPV Immature Gran % (Auto) Neut % (Auto) Lymph % (Auto) [place] % (Auto) Eos % (Auto) Baso % (Auto) Immature Gran # (Auto) Neut # (Auto) Lymph # (Auto) [place] # (Auto) Eos # (Auto) Baso # (Auto) PT INR APTT PTT Ratio POC Sodium 142 Sodium 141 POC Potassium 4.6 Potassium 4.5 POC Chloride 105 Chloride 107 Carbon Dioxide 26 POC Total CO2 24 Anion Gap 8.0 POC Anion Gap 18.0 POC BUN 42 H BUN 45 H Creatinine 1.60 H POC Creatinine 1.4 H Est Cr Clr Drug Dosing Not Reportable Est GFR ( Amer) 45.8 Est GFR (Non-Af Amer) 39.5 BUN/Creatinine Ratio 28.2 H Glucose 212 H POC Glucose POC Glucose (other) 211 H Calcium 9.2 POC Ioniz Calcium Mega 1.22 Magnesium 1.6 L Total Bilirubin 0.5 AST 118 H ALT 90 H Alkaline Phosphatase 60 Troponin I 0.227 H* Total Protein 7.9 Albumin 3.8 Globulin 4.1 H Albumin/Globulin Ratio 0.9 Nasal Screen MRSA (PCR) Blood Type A Positive Antibody Screen NEGATIVE 05/17/19 05/17/19 08:40 08:49 WBC RBC Hgb POC Hgb Hct POC Hct MCV MCH MCHC RDW Std Deviation RDW Coeff of Rachel Plt Count MPV Immature Gran % (Auto) Neut % (Auto) Lymph % (Auto) [place] % (Auto) Eos % (Auto) Baso % (Auto) Immature Gran # (Auto) Neut # (Auto) Lymph # (Auto) [place] # (Auto) Eos # (Auto) Baso # (Auto) PT INR APTT PTT Ratio POC Sodium Sodium POC Potassium Potassium POC Chloride Chloride Carbon Dioxide POC Total CO2 Anion Gap POC Anion Gap POC BUN BUN Creatinine POC Creatinine Est Cr Clr Drug Dosing Est GFR ( Amer) Est GFR (Non-Af Amer) BUN/Creatinine Ratio Glucose POC Glucose 162 H POC Glucose (other) Calcium POC Ioniz Calcium Mega Magnesium Total Bilirubin AST ALT Alkaline Phosphatase Troponin I Total Protein Albumin Globulin Albumin/Globulin Ratio Nasal Screen MRSA (PCR) Pending Blood Type Antibody Screen Diagnostic Findings CTA head IMPRESSION: 1. No evidence of aneurysm 2. 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 Possible left occipital infarct an MRI is recommended in follow-up. CTA neck IMPRESSION: 1. 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 2. Trace collateral reconstitution distally versus retrograde flow from the contralateral right carotid system. 3. 70% multifocal stenosis origin right internal carotid artery with a second focus 2 cm from the right bifurcation. 4. Occlusion proximal left vertebral artery with mild collateral flow demonstrated at the level of C4. 5. At the level of C4 1 second high-grade stenosis is identified. 6. Congenitally small right vertebral artery although it shows no significant stenotic change. CT head 1. Potential small focus of subacute ischemic change left occipital lobe. 2. Atrophy and chronic small vessel change. 3. No acute intracranial hemorrhage. Code Status & VTE Plan Code Status DNR discussed with his since he cannot respond she stated that his living will has stated he would not want to be on life support asked if his heart would stop or if he would stop breathing would he want resuscitated, she said no VTE Prophylaxis Plan VTE Prophylaxis will be ordered: Yes Critical Care Time Critical Care Time: Yes Total Critical Care Time: 37 Prolonged Care Time Prolonged Care Time: No PG Care Time/CCT Total # of Minutes Spent Total Time Spent with Patient: Total time spent is greater than 50% in coordination of care (as documented) at patient's floor/unit and/or counseling patient: Critical Care Time: Yes Total Critical Care Time: 37 Prolonged Care Time Prolonged Care Time: No (1) Type 2 diabetes mellitus Diabetes mellitus complication detail: with peripheral angiopathy with gangrene Diabetes mellitus complication status: with circulatory complication Diabetes mellitus shelter insulin use: without termite technician use Qualified Code(s): E11.52 - Type 2 diabetes mellitus with diabetic peripheral angiopathy with gangrene (2) CAD (coronary artery disease) Coronary Disease-Associated Artery/Lesion type: [place] artery [place] vs. transplanted heart: [place] heart Associated angina: without angina Qualified Code(s): I25.10 - Atherosclerotic heart disease of [place] coronary artery without angina pectoris (3) HTN (hypertension) Hypertension type: essential hypertension Qualified Code(s): I10 - Essential (primary) hypertension
--- NOTE | 2019-05-17 09:50 | Critical Care Consultation ---
Date of Consultation May 17, 2019 Assessment & Plan (1) Admitted to intensive care unit: Reason Critically Ill: 84-year-old male here for s/p TPA. Past medical history significant for diabetes type 2, peripheral artery disease, coronary artery disease, hypertension, dyslipidemia, diabetic ulcer that was supposed to be operated on today, Hx of cardiac catheterization Neuro: -[facility] ICU: POSITIVE Stroke Patient presented to the hospital with strokelike symptoms, stroke protocol was called and patient ministered TPA. In the immediate period after administration TPA appeared to acutely improve however this was transient in nature. He was subsequently taken to the MRI for further evaluation while in the MRI suite his mental status declined. MRI demonstrated acute/subacute left hemispheric infarcts involving left occipital, left frontal and parietal lobes. There is a concern for significant cerebral edema status post stroke we will monitor for signs and symptoms of decompensation -Neurology consulted following recommendations -Control BP goal map of 100 -Controlled PSG -Initiate statin -PT, OT, speech consult -Status post TPA no indication for AC at this time. On day 2 restart antiplatelet medication with aspirin Plavix -Monitor for signs and symptoms of significant cerebral edema this may occur on day 2 -Poor prognosis, it would be reasonable transfer to higher level stroke care if the family wants aggressive management. Otherwise DNR/DNI with comfort m easures Cardiac: PACs Patient expressing intermittent PACs otherwise hemodynamically stable. s/p TPA Patient currently status post PEA monitor for signs and symptoms of acute hemorrhage Carotid artery disease Patient has severe carotid artery disease with total occlusion of the left internal carotid artery, and 70% occlusion of the right internal carotid artery. -Consider vascular consult History of ischemic cardiomyopathy Most recent echo had an EF of 55%, current echo pending Respiratory: -No concerns at present GI: -Currently n.p.o. diet -Transition to diabetic diet once evaluated by speech and swallow RENAL/LYTES: - No significant electrolyte derangement. - Replace lytes as needed. : - No concerns at this time. ENDO: Diabetes Patient has history of diabetes appears to be relatively well controlled -ICU hyperglycemia protocol in place -Glycemic consult placed HEME: - Stable H&H. -Will monitor for any drops status post TPA ID: -No concerns for infection at this point. -Monitor fever curve. INTEGUMENTARY: Ulcer of the toe left foot Patient was scheduled for surgery today, however this did not occur secondary to presentation for stroke. -Monitor for signs and symptoms of infection LINES/IV ACCESS: -PIVs intact. DVT PROPHYLAXIS: -Contraindicated secondary to TPA resume on day 2 status post TPA Dispo: ICU Thank you for allowing us to be part of this patient's care. Please refer to Dr. Barney's documentation for any further recommendations. (2) Acute cerebral ischemia: (3) Carotid arterial disease: (4) Elevated troponin: (5) Toe ulcer due to DM: (6) Ulcer of toe of left foot: (7) PAD (peripheral artery disease): (8) Type 2 diabetes mellitus: (9) Dyslipidemia: (10) HTN (hypertension): (11) CKD (chronic kidney disease) stage 3, GFR 30-59 ml/min: (12) Received intravenous tissue plasminogen activator (tPA) in emergency department: Supervising Physician Co-Signing Physician Notes Dr. Dee was the resident-physician during care of patient. I separately evaluated patient for rojas portions of the history and the exam. I was present during the critical portion of medical decision making, and I discussed the case with the resident. I generally agree with the findings and plan except for any additions/exceptions noted. This is an 84-year-old gentleman with past medical history of type 2 diabetes severe PAD, CAD, hypertension and dyslipidemia who was supposed to undergo a first and second left toe amputation today. This morning he was found to be confused around 430. He was brought to the emergency department by his family in a car. His NIH stroke scale was found to be approximately 7. He had complete aphasia and left facial droop. He was given TPA at around 6:30 AM. He was then brought to the ICU with some improvement in symptoms and was actually able to speak. Subsequently he went to MRI and there he had altered mental status and complete global aphasia once again. He had complete hemineglect in the right side and left gaze preference. Neurologist on-call, Dr. Walsh was called and examined the patient. We obtained diffusion weighted images of his brain on MRI which demonstrated multiple areas of acute and subacute infarcts. Dr. Walsh felt that his symptoms were consistent with a large MCA stroke and a pos terior cerebellar stroke. We will contact family and decide if they would prefer to transfer the patient for higher level care which may include ICP monitoring, hypertonic saline and hemicraniotomy versus a more comfortable approach. Given his advanced age and severe vascular disease I would favor a more comfortable/conservative approach for this gentleman. Continue ICU monitoring. Hydralazine as needed. Head of the bed elevated to 35 degrees. N.p.o. He is at very high risk for edema related to his MCA infarct and worsening mentation. He is currently a DNR/DNI. His overall prognosis is guarded. I have personally spent 35 minutes of critical care time in the direct management of this patient. This is a life/limb threatening event. This includes time spent evaluating patient, direct bedside care, chart review, placing orders, interpretation of diagnostic studies, discussion with consultants, patient, and/or family members regarding treatment decisions, as well as other required patient management activities. This time is exclusive of all separately billable procedures, and teaching time and separate from and in addition to any other critical care service time. History of Present Illness Attending Physician: Roddy Fajardo DO History of Present Illness Patient is an 84-year-old male with a past medical history significant for diabetes type 2, peripheral artery disease, coronary artery disease, hypertension,, and decubitus ulcers. The patient presented to the [facility] medical department after change in responsiveness. At approximately 4:00 this morning he was up talking and interacting with family members any acute change where he stopped being responsive. The patient was scheduled to undergo surgery at [facility] today for a first and second toe diabetic ulcers. On presentation the ED he had a left facial droop and was unable to speak. The patient was previously on aspirin and Plavix this was stopped approximately a week ago. On examination the ED and expressive aphasia, left facial droop, and right-sided leg weakness. Code stroke was called and TPA was administered TPA infusion was completed at approximately 0737. Status post completion of TPA his left facial droop resolved and he regained the ability to speak. He was subsequently transferred to the ICU. In the ICU he was conversing with nursing, and doing well. He was then transferred to radiology for an MRI the ICU team was called to the MRI suite due to an acute change in mental status. The patient lost the ability to communicate, and was unresponsive on his right side. MRI was obtained demonstrating progression of his stroke. Patient was returned to the ICU for further evaluation and treatment. Allergies Allergy/AdvReac Type Severity Reaction Status Date / Time atorvastatin Allergy Unknown Verified 05/17/19 05:57 potassium Allergy Unknown Verified 05/17/19 05:57 Home Medications Home Medications Medication Instructions Recorded Confirmed Type metformin 1,000 mg PO BID 01/14/19 05/17/19 History aspirin 81 mg tablet,delayed 81 mg PO DAILY tab 05/08/19 05/17/19 History release clopidogrel 75 mg tablet 75 mg PO DAILY tab 05/08/19 05/17/19 History finasteride 5 mg tablet 5 mg PO DAILY #30 tab 05/08/19 05/17/19 History glipizide 10 mg tablet 10 mg PO BID 05/08/19 05/17/19 History hydrocodone 5 mg-acetaminophen 325 1 tab PO Q6H PRN 05/08/19 05/17/19 History mg tablet polyethylene glycol 3350 17 17 gm PO DAILY #1 gm 05/08/19 05/17/19 History gram/dose oral powder semaglutide 0.25 mg or 0.5 mg (2 0.25 mg SQ WEEKLY ml 05/08/19 05/17/19 History mg/1.5 mL) subcutaneous pen injector sildenafil (antihypertensive) 20 100 mg PO DAILY PRN #30 tab 05/08/19 05/17/19 History mg tablet tamsulosin 0.4 mg capsule 0.4 mg PO DAILY cap 05/08/19 05/17/19 History temazepam 15 mg capsule 15 mg PO DAILY cap 05/08/19 05/17/19 History carvedilol 6.25 mg PO BID 05/17/19 05/17/19 History potassium citrate 10 meq PO DAILY 05/17/19 05/17/19 History triamcinolone acetonide 1 applic TOPICAL BID 05/17/19 05/17/19 History Patient History Medical History CAD (coronary artery disease) (Chronic) History of ischemic cardiomyopathy LVEF 35-40% previously. Rpt echo EF had improved to 55-60% CKD (chronic kidney disease) stage 3, GFR 30-59 ml/min HTN (hypertension) Dyslipidemia Diabetic peripheral neuropathy (Acute) Neuropathic ulcer of toe of left foot (Acute) Diabetes mellitus, type 2 History of kidney stones STEMI (ST elevation myocardial infarction) 03/2015, tx with SUNITHA. Surgical History History of tonsillectomy History of herniorrhaphy inguinal History of lithotripsy cystolithopaxy @ [facility] 07/16/18, LMA #5, smooth IV induction. History of open reduction and internal fixation (ORIF) procedure right ankle S/P cardiac cath 2014, SUNITHA to LAD. PATIENT SYTAES HE DOES NOT REMEMBER HAVING CATH Hx of total hip arthroplasty (Resolved) Hx of shoulder surgery LEFT Family History Father , age 81; "old age" No problems noted. Mother , age 88; "old age" No problems noted. 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 Feels Safe at Home: Yes Smoking Status: Former smoker Tobacco Type: cigarettes ; Cigarettes Per Day: 1/2 ppd ; Second Hand Exposure: No ; Hx Alcohol Use: No Hx Substance Use: No Physical Exam Constitutional: + acute distress and + altered mental status Eyes: Eyes fixed to the left when I bring them past midline ENMT: external ear and nose normal, oropharynx normal Neck: trachea midline, no thyromegaly normal visual inspection Respiratory: normal respiratory effort, lungs clear to auscultation Cardiovascular: RRR, no murmur, no edema Occasional PACs Gastrointestinal (Abdomen): normal bowel sounds, soft, nontender, no hepatosplenomegaly Musculoskeletal: Head/Neck/Chest: + limited ROM of neck (looking left) Skin: no rashes, warm and dry diabetic ulcer of his left toe Neurologic: + obtunded; + CN's not intact Speech / Cognition: + abnormal speech and + expressive aphasia Motor/Sensory: + fasciculations (right side ue/le) Cranial Nerves: + not able to rotate head Comatose Patient: + decorticate rigidity (right side U/E) Lymphatic: no cervical or axillary lymphadenopathy Results & Data Vital Signs (Past 12 Hours) Vital Signs Temp Pulse Pulse Resp BP BP Pulse Ox 05/17/19 09:15 36.6 C 18 94 05/17/19 08:16 87 155/87 H 94 05/17/19 08:11 91 H 20 125/89 92 05/17/19 08:10 87 91 05/17/19 08:05 86 142/88 H 91 05/17/19 08:00 88 140/85 91 05/17/19 07:55 91 H 133/84 92 05/17/19 07:50 88 134/76 92 05/17/19 07:46 90 138/96 92 05/17/19 07:40 86 137/79 92 05/17/19 07:36 87 143/78 H 94 05/17/19 07:31 85 129/78 93 05/17/19 07:30 90 93 05/17/19 07:27 86 135/84 90 05/17/19 07:20 88 145/102 H 94 05/17/19 07:15 87 143/90 H 94 05/17/19 07:10 83 138/96 92 05/17/19 07:05 82 144/78 H 92 05/17/19 07:00 83 154/83 H 94 05/17/19 06:55 87 151/84 H 93 05/17/19 06:50 81 138/84 96 05/17/19 06:45 83 82 18 140/84 140/84 94 05/17/19 06:40 79 145/77 H 94 05/17/19 06:35 83 136/84 93 05/17/19 06:31 85 153/78 H 96 05/17/19 06:30 85 83 18 153/78 H 97 05/17/19 06:25 85 134/75 96 05/17/19 06:22 87 23 114/68 94 05/17/19 06:21 88 114/68 90 05/17/19 06:20 90 90 05/17/19 06:15 88 138/81 95 05/17/19 06:13 89 147/87 H 94 05/17/19 06:12 92 H 93 05/17/19 06:08 36.4 C L 96 H 18 152/82 H 93 05/17/19 06:06 89 12 05/17/19 05:45 95 H 24 94 05/17/19 05:42 88 29 H 152/82 H 95 Laboratory Results 05/17/19 05/17/19 05/17/19 Range/Units 12:45 08:49 08:40 WBC (4.8-10.8) K/uL RBC (4.7-6.1) M/uL Hgb (14.0-18.0) g/dL POC Hgb (14.0-18.0) g/dl Hct (42-52) % POC Hct (42-52) % MCV (80-100) fL MCH (25-34) pg MCHC (32-36) g/dL RDW Std Deviation (36.4-46.3) fL RDW Coeff of Rachel (11.5-14.5) % Plt Count (130-400) K/uL MPV (7.4-10.4) fL Immature Gran % (Auto) % Neut % (Auto) % Lymph % (Auto) % [place] % (Auto) % Eos % (Auto) % Baso % (Auto) % Immature Gran # (Auto) (0.00-0.02) K/uL Neut # (Auto) (1.4-6.5) K/uL Lymph # (Auto) (1.2-3.4) K/uL [place] # (Auto) (0.11-0.59) K/uL Eos # (Auto) (0-0.5) K/uL Baso # (Auto) (0-0.2) K/uL PT (9.0-12.0) Seconds INR (0.9-1.1) APTT (21.0-31.0) Seconds PTT Ratio POC Sodium (135-144) mEq/L Sodium (136-145) mmol/L POC Potassium (3.3-5.0) mEq/L Potassium (3.5-5.1) mmol/L POC Chloride (101-112) mEq/L Chloride (98-107) mmol/L Carbon Dioxide (21-32) mmol/L POC Total CO2 (24-31) mEq/l Anion Gap (3-11) POC Anion Gap (16-25) mmol/L POC BUN (7-18) mg/dl BUN (7-18) mg/dl Creatinine (0.6-1.4) mg/dl POC Creatinine (0.6-1.3) mg/dl Est Cr Clr Drug Dosing Est GFR ( Amer) Est GFR (Non-Af Amer) BUN/Creatinine Ratio (10-20) Glucose (70-99) mg/dl POC Glucose 151 H 162 H (70-99) POC Glucose (other) (70-99) mg/dl Estimat Average Glucose Hemoglobin A1c Calcium (8.5-10.1) mg/dl POC Ioniz Calcium Mega (1.12-1.32) mmol/l Magnesium (1.8-2.4) mg/dl Total Bilirubin (0.2-1) mg/dl AST (15-37) U/L ALT (12-78) U/L Alkaline Phosphatase (45-117) U/L Troponin I (0-0.045) ng/ml Total Protein (6.4-8.2) gm/dl Albumin (3.4-5.0) gm/dl Globulin (2.5-4.0) gm/dl Albumin/Globulin Ratio (0.9-2) Nasal Screen MRSA (PCR) Negative (Negative) Blood Type Antibody Screen 05/17/19 05/17/19 05/17/19 Range/Units 06:05 05:56 05:50 WBC (4.8-10.8) K/uL RBC (4.7-6.1) M/uL Hgb (14.0-18.0) g/dL POC Hgb 15.0 (14.0-18.0) g/dl Hct (42-52) % POC Hct 44 (42-52) % MCV (80-100) fL MCH (25-34) pg MCHC (32-36) g/dL RDW Std Deviation (36.4-46.3) fL RDW Coeff of Rachel (11.5-14.5) % Plt Count (130-400) K/uL MPV (7.4-10.4) fL Immature Gran % (Auto) % Neut % (Auto) % Lymph % (Auto) % [place] % (Auto) % Eos % (Auto) % Baso % (Auto) % Immature Gran # (Auto) (0.00-0.02) K/uL Neut # (Auto) (1.4-6.5) K/uL Lymph # (Auto) (1.2-3.4) K/uL [place] # (Auto) (0.11-0.59) K/uL Eos # (Auto) (0-0.5) K/uL Baso # (Auto) (0-0.2) K/uL PT (9.0-12.0) Seconds INR (0.9-1.1) APTT (21.0-31.0) Seconds PTT Ratio POC Sodium 142 (135-144) mEq/L Sodium (136-145) mmol/L POC Potassium 4.6 (3.3-5.0) mEq/L Potassium (3.5-5.1) mmol/L POC Chloride 105 (101-112) mEq/L Chloride (98-107) mmol/L Carbon Dioxide (21-32) mmol/L POC Total CO2 24 (24-31) mEq/l Anion Gap (3-11) POC Anion Gap 18.0 (16-25) mmol/L POC BUN 42 H (7-18) mg/dl BUN (7-18) mg/dl Creatinine (0.6-1.4) mg/dl POC Creatinine 1.4 H (0.6-1.3) mg/dl Est Cr Clr Drug Dosing Est GFR ( Amer) Est GFR (Non-Af Amer) BUN/Creatinine Ratio (10-20) Glucose (70-99) mg/dl POC Glucose (70-99) POC Glucose (other) 211 H (70-99) mg/dl Estimat Average Glucose Pending Hemoglobin A1c Pending Calcium (8.5-10.1) mg/dl POC Ioniz Calcium Mega 1.22 (1.12-1.32) mmol/l Magnesium (1.8-2.4) mg/dl Total Bilirubin (0.2-1) mg/dl AST (15-37) U/L ALT (12-78) U/L Alkaline Phosphatase (45-117) U/L Troponin I (0-0.045) ng/ml Total Protein (6.4-8.2) gm/dl Albumin (3.4-5.0) gm/dl Globulin (2.5-4.0) gm/dl Albumin/Globulin Ratio (0.9-2) Nasal Screen MRSA (PCR) (Negative) Blood Type A Positive Antibody Screen NEGATIVE 05/17/19 05/17/19 05/17/19 Range/Units 05:50 05:50 05:50 WBC 8.99 (4.8-10.8) K/uL RBC 4.35 L (4.7-6.1) M/uL Hgb 14.6 (14.0-18.0) g/dL POC Hgb (14.0-18.0) g/dl Hct 42.2 (42-52) % POC Hct (42-52) % MCV 97.0 (80-100) fL MCH 33.6 (25-34) pg MCHC 34.6 (32-36) g/dL RDW Std Deviation 50.3 H (36.4-46.3) fL RDW Coeff of Rachel 14.1 (11.5-14.5) % Plt Count 313 (130-400) K/uL MPV 10.4 (7.4-10.4) fL Immature Gran % (Auto) 1.3 % Neut % (Auto) 67.4 % Lymph % (Auto) 19.1 % Cost[place] % (Auto) 9.1 % Eos % (Auto) 2.7 % Baso % (Auto) 0.4 % Immature Gran # (Auto) 0.12 H (0.00-0.02) K/uL Neut # (Auto) 6.05 (1.4-6.5) K/uL Lymph # (Auto) 1.72 (1.2-3.4) K/uL [place] # (Auto) 0.82 H (0.11-0.59) K/uL Eos # (Auto) 0.24 (0-0.5) K/uL Baso # (Auto) 0.04 (0-0.2) K/uL PT 10.7 (9.0-12.0) Seconds INR 1.0 (0.9-1.1) APTT 25.5 (21.0-31.0) Seconds PTT Ratio 0.9 POC Sodium (135-144) mEq/L Sodium 141 (136-145) mmol/L POC Potassium (3.3-5.0) mEq/L Potassium 4.5 (3.5-5.1) mmol/L POC Chloride (101-112) mEq/L Chloride 107 (98-107) mmol/L Carbon Dioxide 26 (21-32) mmol/L POC Total CO2 (24-31) mEq/l Anion Gap 8.0 (3-11) POC Anion Gap (16-25) mmol/L POC BUN (7-18) mg/dl BUN 45 H (7-18) mg/dl Creatinine 1.60 H (0.6-1.4) mg/dl POC Creatinine (0.6-1.3) mg/dl Est Cr Clr Drug Dosing Not Reportable Est GFR ( Amer) 45.8 Est GFR (Non-Af Amer) 39.5 BUN/Creatinine Ratio 28.2 H (10-20) Glucose 212 H (70-99) mg/dl POC Glucose (70-99) POC Glucose (other) (70-99) mg/dl Estimat Average Glucose Hemoglobin A1c Calcium 9.2 (8.5-10.1) mg/dl POC Ioniz Calcium Mega (1.12-1.32) mmol/l Magnesium 1.6 L (1.8-2.4) mg/dl Total Bilirubin 0.5 (0.2-1) mg/dl AST 118 H (15-37) U/L ALT 90 H (12-78) U/L Alkaline Phosphatase 60 (45-117) U/L Troponin I 0.227 H* (0-0.045) ng/ml Total Protein 7.9 (6.4-8.2) gm/dl Albumin 3.8 (3.4-5.0) gm/dl Globulin 4.1 H (2.5-4.0) gm/dl Albumin/Globulin Ratio 0.9 (0.9-2) Nasal Screen MRSA (PCR) (Negative) Blood Type Antibody Screen 05/17/19 Range/Units 05:43 WBC (4.8-10.8) K/uL RBC (4.7-6.1) M/uL Hgb (14.0-18.0) g/dL POC Hgb (14.0-18.0) g/dl Hct (42-52) % POC Hct (42-52) % MCV (80-100) fL MCH (25-34) pg MCHC (32-36) g/dL RDW Std Deviation (36.4-46.3) fL RDW Coeff of Rachel (11.5-14.5) % Plt Count (130-400) K/uL MPV (7.4-10.4) fL Immature Gran % (Auto) % Neut % (Auto) % Lymph % (Auto) % [place] % (Auto) % Eos % (Auto) % Baso % (Auto) % Immature Gran # (Auto) (0.00-0.02) K/uL Neut # (Auto) (1.4-6.5) K/uL Lymph # (Auto) (1.2-3.4) K/uL [place] # (Auto) (0.11-0.59) K/uL Eos # (Auto) (0-0.5) K/uL Baso # (Auto) (0-0.2) K/uL PT (9.0-12.0) Seconds INR (0.9-1.1) APTT (21.0-31.0) Seconds PTT Ratio POC Sodium (135-144) mEq/L Sodium (136-145) mmol/L POC Potassium (3.3-5.0) mEq/L Potassium (3.5-5.1) mmol/L POC Chloride (101-112) mEq/L Chloride (98-107) mmol/L Carbon Dioxide (21-32) mmol/L POC Total CO2 (24-31) mEq/l Anion Gap (3-11) POC Anion Gap (16-25) mmol/L POC BUN (7-18) mg/dl BUN (7-18) mg/dl Creatinine (0.6-1.4) mg/dl POC Creatinine (0.6-1.3) mg/dl Est Cr Clr Drug Dosing Est GFR ( Amer) Est GFR (Non-Af Amer) BUN/Creatinine Ratio (10-20) Glucose (70-99) mg/dl POC Glucose 191 H (70-99) POC Glucose (other) (70-99) mg/dl Estimat Average Glucose Hemoglobin A1c Calcium (8.5-10.1) mg/dl POC Ioniz Calcium Mega (1.12-1.32) mmol/l Magnesium (1.8-2.4) mg/dl Total Bilirubin (0.2-1) mg/dl AST (15-37) U/L ALT (12-78) U/L Alkaline Phosphatase (45-117) U/L Troponin I (0-0.045) ng/ml Total Protein (6.4-8.2) gm/dl Albumin (3.4-5.0) gm/dl Globulin (2.5-4.0) gm/dl Albumin/Globulin Ratio (0.9-2) Nasal Screen MRSA (PCR) (Negative) Blood Type Antibody Screen Medications Administered Current Inpatient Medications Hydralazine HCl (Hydralazine Hcl) 10 mg IV Q6 PRN PRN Reason: Blood Pressure - High Stop: 06/16/19 08:43 Insulin Aspart (Novolog Flexpen) 0 units SC Q4 HARSHA Stop: 06/16/19 11:59 Last Admin: 05/17/19 12:50 Dose: 1 units Documented by: Miscellaneous (Pending Order) 1 ea N/A Q4 HARSHA Stop: 06/16/19 15:59 Miscellaneous Information (Pharmacist Discharge Med Rec Consult) 1 ea N/A UD PRN PRN Reason: Consult Stop: 06/16/19 08:47 Miscellaneous Information (Consult Glycemic Management Pharmacy) 1 ea N/A UD HARSHA Stop: 06/16/19 10:15 Ondansetron HCl (Zofran) 4 mg IV Q4H PRN PRN Reason: Nausea Stop: 06/16/19 08:43 PG Care Time/CCT Total # of Minutes Spent Total Time Spent with Patient: Total time spent is greater than 50% in coordination of care (as documented) at patient's floor/unit and/or counseling patient: Critical Care Time: Yes Total Critical Care Time: 35 Resident Activity Tracking Resident Involvement: Resident Care Provided Care Provided: Adult Hospital Medicine (ICU severe stroke ) (1) Type 2 diabetes mellitus Diabetes mellitus complication detail: with peripheral angiopathy with gangrene Diabetes mellitus complication status: with circulatory complication Diabetes mellitus halfway insulin use: without reworker use Qualified Code(s): E11.52 - Type 2 diabetes mellitus with diabetic peripheral angiopathy with gangrene (2) HTN (hypertension) Hypertension type: essential hypertension Qualified Code(s): I10 - Essential (primary) hypertension
[2019-05-17] MEDS ORDERED: PHARMACY GLYCEMIC MGMT CONSULT SCH (10:16)
--- NOTE | 2019-05-17 11:48 | Magnetic Resonance Report ---
MRI OF THE BRAIN WITHOUT CONTRAST CLINICAL HISTORY: stroke Aphasia LEFT FACIAL DROOP. COMPARISON STUDY: CT scan dated 05/17/2019 FINDINGS: Sagittal T1, axial diffusion, proton density and T2 weighted axial, coronal FLAIR, and axial T1-weigh kiran images were acquired. No intra or extra-axial mass lesions are visualized There are foci of restricted water diffusion involving the left occipital lobe, and left frontal lobe and anterior left parietal lobe. The findings are indicative of acute/subacute infarcts. There is no evidence of ventricular dilatation. Proton density T2-weighted and FLAIR images reveal scattered foci of increased T2 signal within the w shivani matter, likely on a small vessel basis. There is also increased FLAIR signal in the region of th e left occipital infarct. T2 star images reveal a punctate focus of decreased signal in the left deven ventricular white matter suggesting a punctate age-indeterminate hemorrhage. There are no abnormal flow voids. IMPRESSION: Acute/subacute left hemispheric infarcts involving left occipital lobe, and left frontal and parietal lobes. Electronically signed by: Rakesh Cardoso M.D. 05/17/2019 11:47 AM
[2019-05-17] MEDS ORDERED: INSULIN GLARGINE SOLOSTAR 100 UNITS/ML 3 ML PEN SC SCH (12:00)
--- NOTE | 2019-05-17 12:08 | Neurology Consultation ---
Date of Consultation May 17, 2019 Assessment & Plan (1) Acute cerebral ischemia: (2) Right hemiplegia: (3) Aphasia due to acute stroke: (4) Mushtaq-neglect of right side: (5) Right-sided visual neglect: This patient has suffered an extensive left hemispheric stroke involving frontal, parietal, and occipital lobes (middle cerebral and posterior cerebral artery territories). He has significant vascular occlusions and stenoses noted on MR angiography of the neck. Patient was stable on aspirin and Plavix but this was discontinued recently for surgery and may have triggered this. On examination currently the patient has a right hemiplegia and including face arm and leg, right-sided neglect including right visual neglect (suspect right homonymous hemianopia but cannot test for this specifically given the patient's ability to respond), and global aphasia including expressive and receptive components. He seems to have sensation otherwise in right arm and leg, as noted by some withdrawal response. Patient has multiple risk factors for stroke including hypertension, diabetes, dyslipidemia, and considerable arterial disease in the carotids and vertebral arteries. The patient was given tPA in made some improvements however he worsened later on in the morning. He probably extended his strokes. These are likely ischemic in nature. There is no evidence of hemorrhage on MRI. Recommendations: 1. Control blood pressure has you're doing, aiming for a mean arterial pressure of approximately 100. 2. Control glucose is best as possible. 3. The patient would be a statin candidate and we would need fasting lipid profile before and make final recommendations for statin dosages. 4. Physical, occupational, and speech therapy consult. 5. Patient had tPA and there is no indication for anticoagulation at this time. On day 2 we can restart antiplatelet medication with aspirin and Plavix as he was on before. Unfortunately, because of the large size of this stroke he may have cerebral edema and worsening clinical function. This may happen starting day 2 or so. 6. Overall he has an extremely poor prognosis given his medical history and current stroke. It would be reasonable to transfer him to a higher level stroke center for proper care if the family wants aggressive medical care. Otherwise, he could be made a DNR/comfort measures. Overall, I spent a total of 75 minutes with this case including review of records, review of MRI films with Dr. Encarnacion radiology, and discussion of the case with Dr. Ector DELGADO and Dr. Fajardo regarding differential diagnosis and treatment options History of Present Illness Reason for Consultation: An 84-year-old who I was asked to see the request of Dr. Fajardo for stroke Requesting Physician: Dr. 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 Patient was scheduled for amputation of at least the 2nd left toe today but this was canceled because of recent events. Patient had stopped aspirin and Plavix 10 days ago for this surgery upcoming. Patient woke up at 0420 and was feeling fine. Apparently at 0430 he had the onset of speech problems and right-sided weakness including face arm and leg. He arrived to the emergency room at 0542 with a temperature 36.4, pulse of 88, respiratory rate 29, blood pressure 152/82, and O2 saturation 95 percent. He had a aphasia and right-sided weakness. After consultation with [facility] tele stroke tPA was given. According to the ICU nurses from around 8 o'clock in the morning until 1030 he was making improvements with speech and movement of the right side. He was starting to use words and answer questions well. He was taken down to the MRI around 1050, and nursing noted lack of speech and increased right-sided weakness again. The MRI diffusion images showed acute infarct in middle cerebral artery and posterior cerebral artery territories on the left. There was no mass effect. FLAIR imaging showed moderate old small vessel ischemic disease plus there was no evidence for acute hemorrhage. I reviewed the MRI films as well as the CT angiography films of the head and neck with Dr. Encarnacion, radiologist. Patient's CT angiography of the head was fairly good although there was some minor occlusions noted. CT angiography of the neck revealed an occluded left internal carotid artery at the origin which reconstituted higher up. There was a 70 percent stenosis at the origin of the right internal carotid artery and a 2nd stenosis higher up. The left vertebral was occluded proximally and distally was some stenosis. The right vertebral was small in general. Neurologic examination was performed after the MRI and I had discussion with Dr. Barney from ICU. CBC was largely unremarkable. Chem profile revealed elevated liver enzymes, elevated troponin, elevated BUN and creatinine, glucose of 212. Allergies Allergy/AdvReac Type Severity Reaction Status Date / Time atorvastatin Allergy Unknown Verified 05/17/19 05:57 potassium Allergy Unknown Verified 05/17/19 05:57 Home Medications Home Medications Medication Instructions Recorded Confirmed Type metformin 1,000 mg PO BID 01/14/19 05/17/19 History aspirin 81 mg tablet,delayed 81 mg PO DAILY tab 05/08/19 05/17/19 History release clopidogrel 75 mg tablet 75 mg PO DAILY tab 05/08/19 05/17/19 History finasteride 5 mg tablet 5 mg PO DAILY #30 tab 05/08/19 05/17/19 History glipizide 10 mg tablet 10 mg PO BID 05/08/19 05/17/19 History hydrocodone 5 mg-acetaminophen 325 1 tab PO Q6H PRN 05/08/19 05/17/19 History mg tablet polyethylene glycol 3350 17 17 gm PO DAILY #1 gm 05/08/19 05/17/19 History gram/dose oral powder semaglutide 0.25 mg or 0.5 mg (2 0.25 mg SQ WEEKLY ml 05/08/19 05/17/19 History mg/1.5 mL) subcutaneous pen injector sildenafil (antihypertensive) 20 100 mg PO DAILY PRN #30 tab 05/08/19 05/17/19 History mg tablet tamsulosin 0.4 mg capsule 0.4 mg PO DAILY cap 05/08/19 05/17/19 History temazepam 15 mg capsule 15 mg PO DAILY cap 05/08/19 05/17/19 History carvedilol 6.25 mg PO BID 05/17/19 05/17/19 History potassium citrate 10 meq PO DAILY 05/17/19 05/17/19 History triamcinolone acetonide 1 applic TOPICAL BID 05/17/19 05/17/19 History Patient History Medical History CAD (coronary artery disease) (Chronic) History of ischemic cardiomyopathy LVEF 35-40% previously. Rpt echo EF had improved to 55-60% CKD (chronic kidney disease) stage 3, GFR 30-59 ml/min HTN (hypertension) Dyslipidemia Diabetic peripheral neuropathy (Acute) Neuropathic ulcer of toe of left foot (Acute) Diabetes mellitus, type 2 History of kidney stones STEMI (ST elevation myocardial infarction) 03/2015, tx with SUNITHA. Surgical History History of tonsillectomy History of herniorrhaphy inguinal History of lithotripsy cystolithopaxy @ [facility] 07/16/18, LMA #5, smooth IV induction. History of open reduction and internal fixation (ORIF) procedure right ankle S/P cardiac cath 2014, SUNITHA to [facility]AD. PATIENT SYTAES HE DOES NOT REMEMBER HAVING CATH Hx of total hip arthroplasty (Resolved) Hx of shoulder surgery LEFT Family History Father , age 81; "old age" No problems noted. Mother , age 88; "old age" No problems noted. 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 Physical Exam Physical Exam: He is awake and making eye contact looking to the left with head and eyes. He will not bring his head her eyes past midline to the right. He has a positive blink reflex coming in from the left but nothing coming in from the right. Eyes are front and conjugate. Pupils were symmetrical. He had a right facial droop and tongue was midline. Neck was stiff. No abnormal involuntary movements were noted. He was not spontaneously moving the right arm or leg. She would spontaneously move his left arm and leg. He had quick withdrawal to stimulation in the left arm and leg. To deep pain, He had delayed withdrawal with extension in the leg with some withdrawal response and flexion in the arm. Tone in the right arm was somewhat decreased in the leg was somewhat increased much like the left side which was mildly increased. Reflexes were absent in all 4 limbs. Toes were upgoing with plantar stimulation on the right and downgoing on the left. Results & Data Vital Signs (Past 12 Hours) Vital Signs Temp Pulse Pulse Resp BP BP Pulse Ox 05/17/19 10:00 80 24 140/83 95 05/17/19 09:30 80 23 137/90 95 05/17/19 09:15 36.6 C 18 94 05/17/19 09:00 82 19 139/95 93 05/17/19 08:30 36.6 C 90 18 158/88 H 97 05/17/19 08:16 87 155/87 H 94 05/17/19 08:11 91 H 20 125/89 92 05/17/19 08:10 87 91 05/17/19 08:05 86 142/88 H 91 05/17/19 08:00 88 140/85 91 05/17/19 07:55 91 H 133/84 92 05/17/19 07:50 88 134/76 92 05/17/19 07:46 90 138/96 92 05/17/19 07:40 86 137/79 92 05/17/19 07:36 87 143/78 H 94 05/17/19 07:31 85 129/78 93 05/17/19 07:30 90 93 05/17/19 07:27 86 135/84 90 05/17/19 07:20 88 145/102 H 94 05/17/19 07:15 87 143/90 H 94 05/17/19 07:10 83 138/96 92 05/17/19 07:05 82 144/78 H 92 05/17/19 07:00 83 154/83 H 94 05/17/19 06:55 87 151/84 H 93 05/17/19 06:50 81 138/84 96 05/17/19 06:45 83 82 18 140/84 140/84 94 05/17/19 06:40 79 145/77 H 94 05/17/19 06:35 83 136/84 93 05/17/19 06:31 85 153/78 H 96 05/17/19 06:30 85 83 18 153/78 H 97 05/17/19 06:25 85 134/75 96 05/17/19 06:22 87 23 114/68 94 05/17/19 06:21 88 114/68 90 05/17/19 06:20 90 90 05/17/19 06:15 88 138/81 95 05/17/19 06:13 89 147/87 H 94 05/17/19 06:12 92 H 93 05/17/19 06:08 36.4 C L 96 H 18 152/82 H 93 05/17/19 06:06 89 12 05/17/19 05:45 95 H 24 94 05/17/19 05:42 88 29 H 152/82 H 95 Diagnostic Findings MRI OF THE BRAIN WITHOUT CONTRAST CLINICAL HISTORY: stroke Aphasia LEFT FACIAL DROOP. COMPARISON STUDY: CT scan dated 05/17/2019 FINDINGS: Sagittal T1, axial diffusion, proton density and T2 weighted axial, coronal FLAIR, and axial T1-weighted images were acquired. No intra or extra-axial mass lesions are visualized There are foci of restricted water diffusion involving the left occipital lobe, and left frontal lobe and anterior left parietal lobe. The findings are indicative of acute/subacute infarcts. There is no evidence of ventricular dilatation. Proton density T2-weighted and FLAIR images reveal scattered foci of increased T2 signal within the white matter, likely on a small vessel basis. There is also increased FLAIR signal in the region of the left occipital infarct. T2 star images reveal a punctate focus of decreased signal in the left periventricular white matter suggesting a punctate age-indeterminate hemorrhage. There are no abnormal flow voids. IMPRESSION: Acute/subacute left hemispheric infarcts involving left occipital lobe, and left frontal and parietal lobes. Electronically signed by: Rakesh Cardoso M.D. 05/17/2019 11:47 AM PG Care Time/CCT Total # of Minutes Spent Total Time Spent with Patient: Total time spent is greater than 50% in coordination of care (as documented) at patient's floor/unit and/or counseling patient:
[2019-05-17] MEDS: INSULIN ASPART 100 UNITS/ML 3 ML PEN SC SCH ×5 (12:47→23:49)
[2019-05-17] MEDS ORDERED: ALTEPLASE, RECOMBINANT 100 MG VIAL IV ONE (12:53)
--- NOTE | 2019-05-17 14:19 | Pharmacy Report ---
Pharmacy Glycemic Short Note 2 - Date of Service May 17, 2019 - Glycemic Short BSG Results (Last 24 hours): 05/17/19 05/17/19 05/17/19 05:43 05:50 05:56 Glucose 212 H POC Glucose 191 H POC Glucose (other) 211 H 05/17/19 08:49 Glucose POC Glucose 162 H POC Glucose (other) OUTPATIENT ANTIDIABETIC REGIMEN: * Semaglutide 0.25mg Q week * Metformin 1gm PO BID * Glipizide 10mg PO BID * A1c = 8% 10/27/18 ASSESSMENT: * Type 2 diabetic admitted for ischemic stroke, now s/p tPA administration * Patient is currently NPO * BSGs have been trending down w/o treatment, therefore will initial low dose basal (based upon weight and "low" stress level) + moderate dose bolus regimen (again based upon pt weight). Would anticipate this patient to have at least moderate level of insulin resistance given he is receiving 3 agents for glycemic control prior to admit. PLAN FOR INPATIENT GLYCEMIC CONTROL: * Hold outpatient oral diabetes medications (metformin, glipizide, semaglutide) * Basal insulin * Lantus 7 units SQ x 1 now. * Bolus insulin * NovoLog per scale Q4hrs while NPO * Goal Range: Low 120 mg/dL - High 150 mg/dL * Correction Factor: 25 mg/dL/unit * Nutritional / Prandial insulin per carb ratio of 1 unit per 10 grams CHO consumed * If BSG > 220 x 1, will initiate IV insulin infusion per moderate stress protocol - goal range 110-180 PLAN FOR DISCHARGE: * to be determined
[2019-05-17] MEDS ORDERED: ASPIRIN 300 MG SUPP PR ONE (15:38)
[2019-05-18] MEDS: INSULIN ASPART 100 UNITS/ML 3 ML PEN SC SCH ×5 (04:01→21:32)
[2019-05-18 07:31] LABS: Estimated Average Glucose 186 mg/dl; Hemoglobin A1C 8.1 % (4.5-5.6)
[2019-05-18 07:41] LABS: BUN Creatinine Ratio 22.4 (10-20); Calcium 9.2 mg/dl (8.5-10.1); Creatinine Clr Calc Pharmacy 47.1 ml/min; Est GFR (African American) 55.8; Est GFR (Non-African American) 48.1; Magnesium 1.8 mg/dl (1.8-2.4)
[2019-05-18] MEDS ORDERED: ASPIRIN 300 MG SUPP PR ONE ×2 (07:41→08:37)
[2019-05-18 07:45] LABS: Phosphorus 3.9 mg/dl (2.5-4.9)
[2019-05-18 07:51] LABS: Hematocrit (blood only) 43.9 % (42-52); Hemoglobin 15.3 g/dL (14.0-18.0); Mean Corpuscular Hemoglobin 33.3 pg (25-34); Mean Corpuscular Hgb Conc 34.9 g/dL (32-36); Mean Corpuscular Volume 95.6 fL (80-100); Mean Platelet Volume 10.7 fL (7.4-10.4); Platelet Count 329 K/uL (130-400); RDW Coefficient of Variation 14.2 % (11.5-14.5); RDW Standard Deviation 49.5 fL (36.4-46.3); Red Blood Count 4.59 M/uL (4.7-6.1); White Blood Count 10.68 K/uL (4.8-10.8)
[2019-05-18] MEDS: ENOXAPARIN INJ 40 MG/0.4 ML SYR SQ SCH (08:10)
--- NOTE | 2019-05-18 08:10 | CT Scan Report ---
CT OF THE HEAD WITHOUT CONTRAST CLINICAL HISTORY: stroke post tPA COMPARISON STUDY: Head CT, CTA of the head and MRI of the brain May 17, 2019. CT DOSE: 614.27 mGy.cm TECHNIQUE: Helical axial images of the head were obtained without IV contrast. Automated exposure con trol was utilized for the study. A dose lowering technique was utilized adhering to the principles o f ALARA. FINDINGS: No acute hemorrhage is noted. There is no mass effect. Hypodensity with loss of maurice-white differentiation involving the left temporal, frontal, parietal and occipital lobes is noted. This rep resents acute infarction. This predominantly involves the left MCA territory however there is also po ssible involvement of the left MIDDLEWARE DEVELOPER territory. Extent of infarction appears increased since MRI of Apr. Ventricular system is unremarkable. The basilar cisterns are patent. There are no ex tra-axial collections. IMPRESSION: Extensive acute infarction within the left cerebral hemisphere. Infarct extent appears increased sinc e MRI of May 17, 2019. No hemorrhage. No significant mass effect. Electronically signed by: Angel Encarnacion M.D. 05/18/2019 8:09 AM
[2019-05-18] MEDS: INSULIN GLARGINE SOLOSTAR 100 UNITS/ML 3 ML PEN SC SCH ×2 (08:22→21:31)
--- NOTE | 2019-05-18 08:44 | Hospitalist Progress Note ---
Date of Service May 18, 2019 Assessment & Plan (1) Acute cerebral ischemia: acute ischemic stroke due to severe left carotid artery stenosis, possible acute thrombus also with severe vertebral artery stenosis symptoms on admission were aphasia, right sided neglect, left facial droop stroke alert on admission received tPA and initially had improvement in symptoms, was speaking clearly and was oriented, no motor deficits and left facial droop resolved about 3-4 hours after tPA he exhibited profound motor deficit on right side, flaccid paralysis, aphasia, right sided neglect MRI shows acute and subacute stroke in left MCA distribution in occipital, parietal and frontal lobe discussed case with stroke neurologist at [place] as well as interventionalist at [place] no role for intervention on the left carotid, would only increase risk of further emboli and likely bleed from reperfusion only option for treatment would be antiplatelets high risk for either bleeding or cerebral edema and herniation will transfer out of the ICU to PCU, repeat CT head if there are any acute changes on admission: CT head with possible ischemic change in left occipital lobe CTA neck with advanced carotid artery disease, total occlusion on the left, 70% on the right severe stenosis/near total occlusion of left vertebral artery he was off his Aspirin and Plavix in anticipation of toe surgery today he was off the medications for 7-10 days (2) Carotid arterial disease: severe disease, total occlusion on left ICA and 70% on the right ICA no role for intervention (3) Ulcer of toe of left foot: was planned for surgery, possible amputation 05/17 cancelled due to acute stroke (4) Toe ulcer due to DM: (5) Type 2 diabetes mellitus: Novolog SS ordered hold oral agents, not taking PO once he can safely swallow will order diabetic diet (6) PAD (peripheral artery disease): patient typically on aspirin and Plavix these were held for surgery continue to hold for 24 hours after tPA cannot give Plavix due to dysphagia will give rectal aspirin today (7) CAD (coronary artery disease): no chest pain reported to family prior to becoming aphasic aspirin LA (8) CKD (chronic kidney disease) stage 3, GFR 30-59 ml/min: Cr is stable at 1.6 with calculated GFR at baseline range monitor tomorrow (9) HTN (hypertension): hold oral agents, he did not take any BP medications on 05/17 provide IV fluids to maintain volume status, very sensitive to low normal blood pressures (10) Dyslipidemia: LDL low at 63, HDL 37 hold statin until he can take PO (11) History of ischemic cardiomyopathy: echo here shows preserved EF, mild LVH, no right to left shunt on bubble study examines euvolemic give IV fluids as he cannot drink safeley Subjective patient seen this morning, he turned to the right when I came in to see him got CT head, shows some progression of stroke, no bleeding, no mass effect from swelling reviewed labs, CBC and BMP stable will give rectal aspirin since CT head negative for bleed discussed with Dr. Walsh, appreciate his input Review of Systems Review of Systems: Unobtainable due to cognitive status (unable to answer questions) Physical Exam Constitutional: WD/WN, vitals as above Eyes: PERRL, conjunctivae normal, anicteric sclerae ENMT: external ear and nose normal, oropharynx normal Neck: trachea midline, no thyromegaly Respiratory: normal respiratory effort, lungs clear to auscultation Cardiovascular: RRR, no murmur, no edema Gastrointestinal (Abdomen): normal bowel sounds, soft, nontender, no hepato splenomegaly Musculoskeletal: Head/Neck/Chest: normocephalic and head atraumatic Extremities: extremities normal to inspection and + abnormal strength (weakness in right arm, hand and leg) Skin: no rashes, warm and dry Neurologic: patellar DTR's 2+ bilat, sensation intact + confused; no focal motor deficits Speech / Cognition: + expressive aphasia and + abnormal cognition (not understanding all commands) Motor/Sensory: no tremor, normal movement, no pronator drift and no asterixis Cranial Nerves: PERRL, EOM intact bilaterally, normal facial strength, tongue midline, normal hearing and symmetric palate elevation Coordination: + abnormal [id number] test (could not follow the command) Psychiatric: Orientation: alert; + not oriented x 3 (unable to accurately assess) Apperance: appeared stated age Eye Contact: + poor eye contact Lymphatic: no cervical or axillary lymphadenopathy Results & Data Vital Signs (Past 12 Hours) Vital Signs Temp Pulse Pulse Resp BP BP Pulse Ox 05/18/19 06:31 94 H 18 149/91 H 95 05/18/19 06:00 88 17 127/86 96 05/18/19 05:30 87 18 124/69 97 05/18/19 05:00 92 H 21 136/73 93 05/18/19 04:30 90 26 H 125/72 96 05/18/19 04:00 37.0 C 93 H 21 153/84 H 94 05/18/19 03:30 94 H 28 H 138/87 96 05/18/19 03:00 101 H 18 149/104 H 98 05/18/19 02:30 95 H 22 137/81 91 05/18/19 02:15 98 H 20 133/87 91 05/18/19 01:32 97 H 22 153/97 H 92 05/18/19 01:30 98 H 20 94 05/18/19 01:00 96 H 18 152/92 H 97 05/18/19 00:31 94 H 21 145/90 H 94 05/18/19 00:15 94 H 12 165/94 H 98 05/18/19 00:00 37.0 C 87 20 156/95 H 94 05/17/19 23:45 86 18 166/85 H 94 05/17/19 23:30 90 23 153/98 H 97 05/17/19 22:30 36.9 C 87 18 162/96 H 96 05/17/19 22:00 36.8 C 82 83 18 159/96 H 159/96 H 97 05/17/19 21:45 86 29 H 154/98 H 99 05/17/19 21:30 82 18 150/100 H 91 05/17/19 21:20 80 23 97 05/17/19 21:15 82 19 155/93 H 97 05/17/19 21:10 84 26 H 97 05/17/19 21:00 82 81 18 158/90 H 150/100 H 95 05/17/19 20:45 84 17 163/93 H 98 Laboratory Results Laboratory Results - last 24 hr 05/17/19 05/17/19 05/17/19 05:50 08:40 08:49 WBC RBC Hgb Hct MCV MCH MCHC RDW Std Deviation RDW Coeff of Rachel Plt Count MPV Sodium Potassium Chloride Carbon Dioxide Anion Gap BUN Creatinine Est Cr Clr Drug Dosing Est GFR ( Amer) Est GFR (Non-Af Amer) BUN/Creatinine Ratio Glucose POC Glucose 162 H Estimat Average Glucose 186 Hemoglobin A1c 8.1 H Calcium Phosphorus Magnesium Triglycerides Cholesterol LDL Cholesterol, Calc VLDL Cholesterol, Calc HDL Cholesterol Cholesterol/HDL Ratio Nasal Screen MRSA (PCR) Negative 05/17/19 05/17/1905/17/19 12:45 16:08 20:18 WBC RBC Hgb Hct MCV MCH MCHC RDW Std Deviation RDW Coeff of Rachel Plt Count MPV Sodium Potassium Chloride Carbon Dioxide Anion Gap BUN Creatinine Est Cr Clr Drug Dosing Est GFR ( Amer) Est GFR (Non-Af Amer) BUN/Creatinine Ratio Glucose POC Glucose 151 H 151 H 121 H Estimat Average Glucose Hemoglobin A1c Calcium Phosphorus Magnesium Triglycerides Cholesterol LDL Cholesterol, Calc VLDL Cholesterol, Calc HDL Cholesterol Cholesterol/HDL Ratio Nasal Screen MRSA (PCR) 05/17/19 05/18/19 05/18/19 23:48 03:58 06:54 WBC 10.68 RBC 4.59 L Hgb 15.3 Hct 43.9 MCV 95.6 MCH 33.3 MCHC 34.9 RDW Std Deviation 49.5 H RDW Coeff of Rachel 14.2 Plt Count 329 MPV 10.7 H Sodium Potassium Chloride Carbon Dioxide Anion Gap BUN Creatinine Est Cr Clr Drug Dosing Est GFR ( Amer) Est GFR (Non-Af Amer) BUN/Creatinine Ratio Glucose POC Glucose 157 H 178 H Estimat Average Glucose Hemoglobin A1c Calcium Phosphorus Magnesium Triglycerides Cholesterol LDL Cholesterol, Calc VLDL Cholesterol, Calc HDL Cholesterol Cholesterol/HDL Ratio Nasal Screen MRSA (PCR) 05/18/19 05/18/19 06:54 08:12 WBC RBC Hgb Hct MCV MCH MCHC RDW Std Deviation RDW Coeff of Rachel Plt Count MPV Sodium 140 Potassium 4.0 Chloride 106 Carbon Dioxide 24 Anion Gap 10.0 BUN 30 H Creatinine 1.36 Est Cr Clr Drug Dosing 47.1 Est GFR ( Amer) 55.8 Est GFR (Non-Af Amer) 48.1 BUN/Creatinine Ratio 22.4 H Glucose 182 H POC Glucose 198 H Estimat Average Glucose Hemoglobin A1c Calcium 9.2 Phosphorus 3.9 Magnesium 1.8 Triglycerides 138 Cholesterol 128 LDL Cholesterol, Calc 63 VLDL Cholesterol, Calc 28 HDL Cholesterol 37 Cholesterol/HDL Ratio 4 Nasal Screen MRSA (PCR) Diagnostic Findings CT OF THE HEAD WITHOUT CONTRAST CLINICAL HISTORY: stroke post tPA COMPARISON STUDY: Head CT, CTA of the head and MRI of the brain May 17, 2019. CT DOSE: 614.27 mGy.cm TECHNIQUE: Helical axial images of the head were obtained without IV contrast. Automated exposure control was utilized for the study. A dose lowering technique was utilized adhering to the principles of ALARA. FINDINGS: No acute hemorrhage is noted. There is no mass effect. Hypodensity with loss of maurice-white differentiation involving the left temporal, frontal, parietal and occipital lobes is noted. This represents acute infarction. This predominantly involves the left MCA territory however there is also possible involvement of the left LADLE POURER territory. Extent of infarction appears increased since MRI of May 17, 2019. Ventricular system is unremarkable. The basilar cisterns are patent. There are no extra-axial collections. IMPRESSION: Extensive acute infarction within the left cerebral hemisphere. Infarct extent appears increased since MRI of May 17, 2019. No hemorrhage. No significant mass effect. Medications Administered Current Inpatient Medications Aspirin (Aspirin) 300 mg LA ONE ONE Stop: 05/18/19 08:38 Enoxaparin Sodium (Lovenox) 40 mg SQ Q24H HARSHA Stop: 06/17/19 07:44 Last Admin: 05/18/19 08:10 Dose: 40 mg Documented by: Hydralazine HCl (Hydralazine Hcl) 10 mg IV Q6 PRN PRN Reason: Blood Pressure - High Stop: 06/16/19 08:43 Sodium Chloride (Nss 1000ml) 1,000 mls @ 80 mls/hr IV .[id number] HARSHA Stop: 06/17/19 08:44 Insulin Aspart (Novolog Flexpen) 0 units SC Q4 HARSHA Stop: 06/16/19 11:59 Last Admin: 05/18/19 08:14 Dose: 2 units Documented by: Insulin Glargine (Lantus Solostar Pen) 10 units SC DAILY HARSHA Stop: 06/17/19 08:59 Last Admin: 05/18/19 08:22 Dose: 10 units Documented by: Miscellaneous (Pending Order) 1 ea N/A Q4 HARSHA Stop: 06/16/19 15:59 Last Admin: 05/18/19 00:11 Dose: Not Given Documented by: Miscellaneous Information (Pharmacist Discharge Med Rec Consult) 1 ea N/A UD PRN PRN Reason: Consult Stop: 06/16/19 08:47 Miscellaneous Information (Consult Glycemic Management Pharmacy) 1 ea N/A UD HARSHA Stop: 06/16/19 10:15 Ondansetron HCl (Zofran) 4 mg IV Q4H PRN PRN Reason: Nausea Stop: 06/16/19 08:43 PG Care Time/CCT Total # of Minutes Spent Total Time Spent with Patient: Total time spent is greater than 50% in coordination of care (as documented) at patient's floor/unit and/or counseling patient: (1) Type 2 diabetes mellitus Diabetes mellitus complication detail: with peripheral angiopathy with gangrene Diabetes mellitus complication status: with circulatory complication Diabetes mellitus lobsterman insulin use: without retirement use Qualified Code(s): E11.52 - Type 2 diabetes mellitus with diabetic peripheral angiopathy with gangrene (2) CAD (coronary artery disease) Coronary Disease-Associated Artery/Lesion type: unga artery [place] vs. transplanted heart: unga heart Associated angina: without angina Qualified Code(s): I25.10 - Atherosclerotic heart disease of unga coronary artery without angina pectoris (3) HTN (hypertension) Hypertension type: essential hypertension Qualified Code(s): I10 - Essential (primary) hypertension
--- NOTE | 2019-05-18 09:00 | Critical Care Progress Note ---
Date of Service May 18, 2019 Assessment & Plan (1) Admitted to intensive care unit: This patient was discussed on multidisciplinary rounds. Assessment and Plan: -Status post TPA for acute ischemic stroke Left MCA stroke with possible WATER CONTROL STATION ENGINEER component -Right dense hemiplegia -Left toe osteomyelitis Neurologic: As above he has a left MCA stroke with possible WATER CONTROL STATION ENGINEER component. Continue per rectal aspirin. He is status post TPA. CT head 24 hours post does not indicate any evidence of bleeding. He continues to be at risk for possible cerebral edema since he had a very large MCA stroke. He needs speech therapy and PT/OT. He will likely need a feeding tube at some point if the family wishes to pursue aggressive measures. He also has significant bilateral carotid disease and he is at risk for further plaque rupture. Pulmonary: No issues at present Cardiovascular: Aspirin per rectum as noted above. Unfortunately cannot give Plavix. He is on carvedilol at home. We will have to monitor his heart rate closely. We can use IV medications for now to control his heart rate should be have issues with this. Gastrointestinal: N.p.o. for now. Renal: Continue gentle hydration. No issues otherwise. Infectious disease: He does have osteomyelitis of the left toe. This will need follow-up. He is not a candidate for surgery at this time. Hematologic: No evidence of bleeding. Can start Lovenox for VT prophylaxis. Endocrine: Mild hyperglycemia. Sliding scale insulin. F/E/N: Fluids as noted above. Electrolytes stable. Nutrition: He is to remain n.p.o. Lines and tubes: Peripheral IVs and Rueda catheter in place. VTE prophylaxis: Lovenox CODE STATUS: DNR/DNI Family at bedside: Family is not readily available at the bedside. Disposition: Transfer to floor with telemetry. Thank you for allowing us to participate in the care of this patient. (2) Acute cerebral ischemia: (3) Carotid arterial disease: (4) Elevated troponin: (5) Toe ulcer due to DM: (6) Ulcer of toe of left foot: (7) PAD (peripheral artery disease): (8) Type 2 diabetes mellitus: (9) Dyslipidemia: (10) HTN (hypertension): (11) CKD (chronic kidney disease) stage 3, GFR 30-59 ml/min: (12) Received intravenous tissue plasminogen activator (tPA) in emergency department: Subjective Patient appears to be comfortable today. He is able to mumble a couple of words. He mostly repeats okay. He is able to move his left arm, but unfortunately has minimal movement of his right hand. When I asked him if he has any pain it appears that he shook his head no. Otherwise review of systems is limited due to the patient's medical condition. Review of Systems Review of Systems: Limited due to the patient's medical condition. Physical Exam Constitutional: Appears elderly and frail. Does not appear to be in any distress. Eyes: PERRL, conjunctivae normal, anicteric sclerae normal visual aparicio by confrontation ENMT: external ear and nose normal, oropharynx normal Nose: + dry nasal mucous membranes Neck: trachea midline, no thyromegaly normal visual inspection Respiratory: normal respiratory effort, lungs clear to auscultation normal respiratory effort; no labored breathing Cardiovascular: RRR, no murmur, no edema Extremities: no edema Gastrointestinal (Abdomen): normal bowel sounds, soft, nontender, no hepatosplenomegaly Inspection/Auscultation: abdomen not distended Musculoskeletal: no cyanosis or clubbing, extremities motor strength 5/5 Head/Neck/Chest: normocephalic Skin: no rashes, warm and dry normal turgor Neurologic: Dense hemiplegia on the right. He does seem to spontaneously move his right thumb and occasion slightly. He also seems to move his right foot slightly on occasion. He is able to say the word okay. His movement on the left appears intact. His visual field appears to be normal. Psychiatric: Orientation: alert Lymphatic: no cervical or axillary lymphadenopathy Results & Data Vital Signs (Past 12 Hours) Vital Signs Temp Pulse Pulse Resp BP BP Pulse Ox 05/18/19 06:31 94 H 18 149/91 H 95 05/18/19 06:00 88 17 127/86 96 05/18/19 05:30 87 18 124/69 97 05/18/19 05:00 92 H 21 136/73 93 05/18/19 04:30 90 26 H 125/72 96 05/18/19 04:00 98.6 F 93 H 21 153/84 H 94 05/18/19 03:30 94 H 28 H 138/87 96 05/18/19 03:00 101 H 18 149/104 H 98 05/18/19 02:30 95 H 22 137/81 91 05/18/19 02:15 98 H 20 133/87 91 05/18/19 01:32 97 H 22 153/97 H 92 05/18/19 01:30 98 H 20 94 05/18/19 01:00 96 H 18 152/92 H 97 05/18/19 00:31 94 H 21 145/90 H 94 05/18/19 00:15 94 H 12 165/94 H 98 05/18/19 00:00 98.6 F 87 20 156/95 H 94 05/17/19 23:45 86 18 166/85 H 94 05/17/19 23:30 90 23 153/98 H 97 05/17/19 22:30 98.4 F 87 18 162/96 H 96 05/17/19 22:00 98.2 F 82 83 18 159/96 H 159/96 H 97 05/17/19 21:45 86 29 H 154/98 H 99 05/17/19 21:30 82 18 150/100 H 91 05/17/19 21:20 80 23 97 05/17/19 21:15 82 19 155/93 H 97 05/17/19 21:10 84 26 H 97 05/17/19 21:00 82 81 18 158/90 H 150/100 H 95 CBC and chemistry reviewed. CT had 24 hours out of the TPA reviewed and reveals extensive acute infarction within the left cerebral hemisphere. PG Care Time/CCT Total # of Minutes Spent Total Time Spent with Patient: Total time spent is greater than 50% in coordination of care (as documented) at patient's floor/unit and/or counseling patient: Critical Care Time: Yes Total Critical Care Time: 35 (1) Type 2 diabetes mellitus Diabetes mellitus complication detail: with peripheral angiopathy with gangrene Diabetes mellitus complication status: with circulatory complication Diabetes mellitus extermination inspector insulin use: without senior living use Qualified Code(s): E11.52 - Type 2 diabetes mellitus with diabetic peripheral angiopathy with gangrene (2) HTN (hypertension) Hypertension type: essential hypertension Qualified Code(s): I10 - Essential (primary) hypertension
[2019-05-18] MEDS: SODIUM CHLORIDE 0.9% 1000ML 1,000 ML IV SCH ×2 (09:54→21:33)
--- NOTE | 2019-05-18 10:28 | Neurology Progress Note ---
Date of Service May 18, 2019 Assessment & Plan (1) Acute cerebral ischemia: (2) Right hemiplegia: (3) Aphasia due to acute stroke: (4) Mushtaq-neglect of right side: (5) Right-sided visual neglect: This patient has suffered an extensive left hemispheric stroke May 17, involving frontal, parietal, and occipital lobes (middle cerebral and posterior cerebral artery territories). He has significant vascular occlusions and stenoses noted on MR angiography of the neck. Patient was stable on aspirin and Plavix but this was discontinued recently for surgery and may have triggered this. On examination currently the patient has a right hemiplegia and including face, arm, and leg, right-sided neglect including right visual neglect (suspect right homonymous hemianopia but cannot test for this specifically given the patient's ability to respond), and global aphasia including expressive and receptive components. He seems to have sensation otherwise in right arm and leg, as noted by some withdrawal response. Overall I think clinically he is mildly better today than I saw him after the MRI yesterday. Repeat CT scan of the head today shows more extensive stroke that was suggested on MRI in the left middle cerebral artery and posterior cerebral artery territories. There was no mass effect. I reviewed these films. Unfortunately, because of the large size of this stroke he may have cerebral edema and worsening clinical function over the next day or 2. Patient has multiple risk factors for stroke including hypertension, diabetes, dyslipidemia, and considerable arterial disease in the carotids and vertebral arteries. The patient was given tPA in made some improvements however he worsened later on in the morning. He probably extended his strokes. These are likely ischemic in nature. There is no evidence of hemorrhage on MRI. Recommendations: 1. Control blood pressure has you're doing, aiming for a mean arterial pressure of approximately 100. 2. Control glucose is best as possible. 3. The patient has excellent lipid parameters and would be a regular dose statin candidate. I would avoid high dose statins given his large stroke as there is a hemorrhage risk. 4. Physical, occupational, and speech therapy consults. 5. Initiate 81 mg aspirin +70 5 mg clopidogrel daily. 6. Overall, he has an extremely poor prognosis given his medical history and current stroke. It would be reasonable to transfer him to a higher level stroke center for proper care if the family wants aggressive medical care. Otherwise, he could be made a DNR/comfort measures, particularly if he starts showing signs of significant cerebral edema. Overall, I spent a total of 35 minutes with this case including review of records, review of CT films, and discussion of the case with Dr. Ector DELGADO and Dr. Fajardo, regarding differential diagnosis and treatment options Subjective Patient has had no abnormal events overnight. Blood pressure remained stable according to nursing staff. His ability to communicate and move his right side has fluctuated a little. Blood pressure is 124/67. Repeat CT scan of the head showed extensive infarct in the left cerebellar hemisphere involving large portions of the left middle cerebral artery and posterior cerebral artery CBC was unremarkable. Chem profile showed mildly elevated BUN, glucose of 182, and normal parameters otherwise. Total cholesterol was 128 and triglycerides 138. Physical Exam Physical Exam: He is awake and alert and makes eye contact to the left. He ca nnot look or see past midline to the right. He attempts to speak and has a few words which can be form but do not specifically makes sense for the question. He cannot follow one-step commands well and does not seem to understand. He spontaneously moves his left arm and leg which are quite strong at 5/5 diffusely. They react quickly. Toes are downgoing on the left. He does not spontaneously move the right arm and leg. They have some tone of an increase nature and upgoing toe on the right. He withdraws to deep pain in the right leg sluggishly and has some decorticate posturing in the right arm to deep pain. Results & Data Vital Signs (Past 12 Hours) Vital Signs Temp Pulse Pulse Resp BP BP Pulse Ox 05/18/19 09:00 92 H 35 H 124/67 05/18/19 08:30 87 18 125/81 05/18/19 08:00 90 05/18/19 07:30 93 H 24 152/81 H 94 05/18/19 07:00 36.8 C 97 H 16 142/93 H 94 05/18/19 06:31 94 H 18 149/91 H 95 05/18/19 06:00 88 17 127/86 96 05/18/19 05:30 87 18 124/69 97 05/18/19 05:00 92 H 21 136/73 93 05/18/19 04:30 90 26 H 125/72 96 05/18/19 04:00 37.0 C 93 H 21 153/84 H 94 05/18/19 03:30 94 H 28 H 138/87 96 05/18/19 03:00 101 H 18 149/104 H 98 05/18/19 02:30 95 H 22 137/81 91 05/18/19 02:15 98 H 20 133/87 91 05/18/19 01:32 97 H 22 153/97 H 92 05/18/19 01:30 98 H 20 94 05/18/19 01:00 96 H 18 152/92 H 97 05/18/19 00:31 94 H 21 145/90 H 94 05/18/19 00:15 94 H 12 165/94 H 98 05/18/19 00:00 37.0 C 87 20 156/95 H 94 05/17/19 23:45 86 18 166/85 H 94 05/17/19 23:30 90 23 153/98 H 97 05/17/19 22:30 36.9 C 87 18 162/96 H 96 PG Care Time/CCT Total # of Minutes Spent Total Time Spent with Patient: Total time spent is greater than 50% in coordination of care (as documented) at patient's floor/unit and/or counseling patient:
[2019-05-18] MEDS ORDERED: SODIUM CHLORIDE 0.9% 1000ML 250 ML IV ONE (13:28)
[2019-05-18] MEDS ORDERED: DEXTROSE 50% 50 ML SYRINGE IV PRN (15:00)
[2019-05-18] MEDS ORDERED: GLUCAGON FOR INJ 1 MG VIAL IM PRN (15:00)
[2019-05-18] MEDS ORDERED: GLUCOSE 10 TABS/TUBE PO PRN (15:00)
[2019-05-18] MEDS ORDERED: GLUCOSE 40% GEL 15 GM TUBE PO PRN (15:00)
[2019-05-18] MEDS ORDERED: CARBOHYDRATES FOR HYPOGLYCEMIA PO PRN (15:00)
--- NOTE | 2019-05-18 15:04 | Pharmacy Report ---
Glycemic Control Progress Note - Date of Service May 18, 2019 - Scope Glycemic Pharmacist consulted for glycemic control to write orders per [facility] inpatient glycemic control protocol. - Objective Accuchecks BSG(last 24 hours):: 05/17/19 05/17/19 05/17/19 16:08 20:18 23:48 Glucose POC Glucose 151 H 121 H 157 H 05/18/19 05/18/19 05/18/19 03:58 06:54 08:12 Glucose 182 H POC Glucose 178 H 198 H 05/18/19 11:29 Glucose POC Glucose 194 H HbA1c:: Hemoglobin A1c 8.1 % (4.5-5.6) H 05/17/19 05:50 - Recent Pertinent Medications The patient is currently receiving: * Basal insulin: Lantus 7 units x 1 * Correctional Insulin: Novolog Correction per scale ACHS Goal Range: Low 120 mg/dL - High 150 mg/dL Correction Factor: 25 mg/dL/unit * Prandial insulin: Per carb ratio of 1 unit per 10 grams CHO consumed - Outpatient Anti-Diabetic Meds glipizide 10 mg BID metformin 1 gm PO BID semaglutide 0.25 mg weekly - Assessment & Plan ASSESSMENT: * See progress note from 05/17/19 for more background info, in short: * Pt receiving SQ basal bolus insulin regimen for hyperglycemia secondary to baseline DM (outpatient regimen on hold). Patient was NPO yesterday after TPA for ischemic stroke. Diet ordered for lunch. * Patient is currently receiving an average of 10 units of insulin per day * 7 units of basal insulin * 3 units of prandial/correctional insulin * BSGs ranging 121 - 162 mg/dl over the past 24hrs * Changes needed to insulin regimen: * AM Fasting BSG = 178 mg/dl. This is slightly above goal range for patient based on inpatient targets and co-morbidities. Therefore Basal insulin will be increased. Give total insulin dose received yesterday (10 units) this morning plus add a scale for the evening. Patient is eating so expect insulin requirements to increase. Nonetheless, the total basal insulin will be below weight-based stress of 2. * Post-prandial BSGs have not been evaluated since patient was NPO. Monitor. * Total daily dose = TBD units. * Additional notes / comments: hold oral medications PLAN FOR INPATIENT GLYCEMIC CONTROL: * INCREASING Lantus to 10 units SQ qAM plus 0-10 units at bedtime. * Continuing correction factor of 25 mg/dl/unit * Continuing carb ratio of 1 unit per 10 grams CHO consumed * Continuing goal range of Low 110 mg/dL - High 140 mg/dL * Please note that the plan above was derived based on current level of insulin resistance and hospital stress. These recommendations are appropriate for inpatient admission only. Plan of care upon discharge will need to be reassessed to avoid potential outpatient hypo/hyperglycemia. Thank you.
[2019-05-19] MEDS: INSULIN ASPART 100 UNITS/ML 3 ML PEN SC SCH ×4 (08:31→21:14)
[2019-05-19] MEDS: INSULIN GLARGINE SOLOSTAR 100 UNITS/ML 3 ML PEN SC SCH ×2 (08:31→21:20)
[2019-05-19] MEDS: SODIUM CHLORIDE 0.9% 1000ML 1,000 ML IV SCH (08:33)
[2019-05-19] MEDS ORDERED: ASPIRIN 81 MG ECTAB PO SCH (09:00)
--- NOTE | 2019-05-19 09:00 | CT Scan Report ---
CT head/brain wo con CLINICAL HISTORY: 84 years-old Male presenting with recent stroke, monitor for swelling, hemorrhage. TECHNIQUE: Multidetector CT imaging of the head was performed without the use of intravenous contrast . IV contrast: None. One or more dose lowering techniques were used consistent with the principles of ALARA (as low as reasonably achievable), including automatic exposure control, mA or kV adjustment t o individual patient size, and/or use of iterative reconstruction. COMPARISON: 05/18/2019. CT DOSE (mGy.cm): The estimated cumulative dose is 569.73 mGy.cm. FINDINGS: Yam Curer topogram: Unremarkable. Proportional ventricular and sulcal prominence, likely age-related parenchymal volume loss. Mild effa cement of the temporal horn and atrium of the left lateral ventricle. No hemorrhage. Periventricular and subcortical white matter hypoattenuation, nonspecific but likely indicative of chronic small vess el ischemic change. Expected evolution of the acute infarcts in the left MCA territory affecting the left temporal, parietal, and occipital lobes. Regional effacement of sulci. No midline shift. No extr a-axial fluid collection. Paranasal sinuses and mastoid air cells clear. Calvarium intact. IMPRESSION: 1. Expected evolution of the acute infarct in the left MCA territory affecting the left temporal, pa rietal, and occipital lobes. No hemorrhagic conversion. Expected mass effect. No midline shift. Electronically signed by: Gray Tiwari M.D. 05/19/2019 8:59 AM
--- NOTE | 2019-05-19 11:06 | Pharmacy Report ---
Glycemic Control Progress Note - Date of Service May 19, 2019 - Scope Glycemic Pharmacist consulted for glycemic control to write orders per [facility] inpatient glycemic control protocol. - Objective Accuchecks BSG(last 24 hours):: 05/18/19 05/18/19 05/18/19 11:29 16:28 21:12 POC Glucose 194 H 164 H 233 H 05/19/19 07:08 POC Glucose 158 H HbA1c:: Hemoglobin A1c 8.1 % (4.5-5.6) H 05/17/19 05:50 - Recent Pertinent Medications The patient is currently receiving: * Basal insulin: Lantus 10 units every 12 hours * Correctional Insulin: Novolog Correction per scale ACHS Goal Range: Low 110 mg/dL - High 140 mg/dL Correction Factor: 25 mg/dL/unit * Prandial insulin: Per carb ratio of 1 unit per 10 grams CHO consumed - Outpatient Anti-Diabetic Meds GLIPIZIDE 10 MG BID METFORMIN 1 GM PO BID SEMAGLUTIDE 0.25 MG SQ WEEKLY - Assessment & Plan ASSESSMENT: * See progress note from 05/17/19 for more background info, in short: * Pt receiving SQ basal bolus insulin regimen for hyperglycemia secondary to baseline DM (outpatient regimen on hold). * Patient is currently receiving an average of 38 units of insulin per day * 20 units of basal insulin * 18 units of prandial/correctional insulin * BSGs ranging 164 - 233 mg/dl over the past 24hrs * Changes needed to insulin regimen: * AM Fasting BSG = 158 mg/dl. This is slightly above goal range for patient based on inpatient targets and co-morbidities. Therefore Basal insulin will be increased sightly this evening if blood sugar continues to trend upwards. Currently regimen is slightly basal heavy. * Post-prandial BSGs trended upwards yesterday. Tighten CR. * Total daily dose = ~45 units. PLAN FOR INPATIENT GLYCEMIC CONTROL: * Increasing Lantus to 10 units SQ in the morning and 12 units at bedtime (10 units if blood sugar under 180 mg/dL) * Continuing correction factor of 25 mg/dl/unit * Changing carb ratio to 1 unit per 8 grams CHO consumed * Continuing goal range to Low 110 mg/dL - High 140 mg/dL RECOMMENDATIONS FOR DISCHARGE: * tbd based upon discharge disposition * Please note that the plan above was derived based on current level of insulin resistance and hospital stress. These recommendations are appropriate for inpatient admission only. Plan of care upon discharge will need to be reassessed to avoid potential outpatient hypo/hyperglycemia. Thank you.
--- NOTE | 2019-05-19 11:27 | Neurology Progress Note ---
Date of Service May 19, 2019 Assessment & Plan (1) Acute cerebral ischemia: (2) Right hemiplegia: (3) Aphasia due to acute stroke: (4) Mushtaq-neglect of right side: (5) Right-sided visual neglect: This patient has suffered an extensive left hemispheric stroke May 17, involving frontal, parietal, and occipital lobes (middle cerebral and posterior cerebral artery territories). He has significant vascular occlusions and stenoses noted on MR angiography of the neck. Patient was stable on aspirin and Plavix but this was discontinued recently for surgery and may have triggered this. On examination currently the patient has a right hemiplegia and including face, arm, and leg, right-sided neglect including right visual neglect (suspect right homonymous hemianopia but cannot test for this specifically given the patient's ability to respond), and global aphasia including expressive and receptive components. He seems to have sensation otherwise in right arm and leg, as noted by some withdrawal response. Overall I think clinically he is fairly stable from a neurologic standpoint and doing about as well as yesterday. Repeat CT scan of the head today shows more extensive stroke that was suggested on MRI in the left middle cerebral artery and posterior cerebral artery territories. There was no mass effect. I reviewed these films. Unfortunately, because of the large size of this stroke he may have cerebral edema and worsening clinical function over the next day or 2. Patient has multiple risk factors for stroke including hypertension, diabetes, dyslipidemia, and considerable arterial disease in the carotids and vertebral arteries. The patient was given tPA in made some improvements however he worsened later on in the morning. He probably extended his strokes. These are likely ischemic in nature. There is no evidence of hemorrhage on MRI. Recommendations: 1. Control blood pressure has you're doing, aiming for a mean arterial pressure of approximately 100. 2. Control glucose is best as possible. 3. The patient has excellent lipid parameters and would be a regular dose statin candidate. I would avoid high dose statins given his large stroke as there is a hemorrhage risk. 4. Physical, occupational, and speech therapy consults. 5. Consider clopidogrel 75 milligrams daily alone. Discontinue aspirin. 6. Overall, he has an extremely poor prognosis given his medical history and current stroke. He has not shown any significant cerebral edema changes so far. He is able to eat when fed. Overall, I spent a total of 25 minutes with this case including review of records, review of CT films, and discussion of the case with Dr. Fajardo, regarding differential diagnosis and treatment options Subjective He still has a left gaze and head preference. He has no words. He will not follow one-step commands. Nursing reports that he is stable with no new events overnight. Blood pressure is 139/89. CT scan of the head shows expected evolution change in his brother large left middle cerebral and posterior cerebral artery strokes. He has some mass effect but no midline shift or significant compression. Heart rate is been in the 90s in normal sinus rhythm. Physical Exam Physical Exam: He is awake and makes eye contact with facial expression when I walk into the room. He will not say words. He will not follow one-step commands. He will not bring his eyes or head past midline to the right. He is spontaneously moving his right upper extremity some but it is very weak. He is not moving the right leg. He has a right facial droop. Left side moves well as before. He has no abnormal involuntary movements. Results & Data Vital Signs (Past 12 Hours) Vital Signs Temp Pulse Pulse Pulse Resp BP Pulse Ox 05/19/19 11:11 36.4 C L 84 18 164/88 H 95 05/19/19 07:38 36.6 C 96 H 18 139/89 94 05/19/19 02:59 36.4 C L 90 14 156/80 H 94 05/18/19 23:51 88 05/18/19 23:23 37.3 C 85 20 158/87 H 94 PG Care Time/CCT Total # of Minutes Spent Total Time Spent with Patient: Total time spent is greater than 50% in coordination of care (as documented) at patient's floor/unit and/or counseling patient:
--- NOTE | 2019-05-19 15:20 | Hospitalist Progress Note ---
Date of Service May 19, 2019 Assessment & Plan (1) Acute cerebral ischemia: acute ischemic stroke due to severe left carotid artery stenosis, possible acute thrombus also with severe vertebral artery stenosis symptoms on admission were aphasia, right sided neglect, left facial droop stroke alert on admission received tPA and initially had improvement in symptoms, was speaking clearly and was oriented, no motor deficits and left facial droop resolved about 3-4 hours after tPA he exhibited profound motor deficit on right side, flaccid paralysis, aphasia, right sided neglect MRI shows acute and subacute stroke in left MCA distribution in occipital, parietal and frontal lobe discussed case with stroke neurologist at [place] as well as interventionalist at [place] no role for intervention on the left carotid, would only increase risk of further emboli and likely bleed from reperfusion only option for treatment would be antiplatelets high risk for either bleeding or cerebral edema and herniation on admission: CT head with possible ischemic change in left occipital lobe CTA neck with advanced carotid artery disease, total occlusion on the left, 70% on the right severe stenosis/near total occlusion of left vertebral artery he was off his Aspirin and Plavix in anticipation of toe surgery today he was off the medications for 7-10 days plan: treat with Plavix 75mg daily will stop fluids since he is eating well allergic reactions to statin therapy in the past, holding, his LDL was actually low at 63 BP acceptable Novolog SS for DM repeat CT head in the morning PT/OT following as well as speech discussed with family that anticipate he could be discharged midweek as long as he remains stable still high risk for increasing edema and herniation as well as at risk for hemorrhagic conversion and further ischemic strokes poor correction prognosis (2) Carotid arterial disease: severe disease, total occlusion on left ICA and 70% on the right ICA no role for intervention Plavix daily, no statins due to allergy (3) Ulcer of toe of left foot: was planned for surgery, possible amputation 05/17 cancelled due to acute stroke (4) Toe ulcer due to DM: (5) Type 2 diabetes mellitus: Novolog SS ordered hold oral agents diabetic diet (6) PAD (peripheral artery disease): patient typically on aspirin and Plavix these were held for surgery continue to hold for 24 hours after tPA resume Plavix today (7) CAD (coronary artery disease): no chest pain reported to family prior to becoming aphasic aspirin MA (8) CKD (chronic kidney disease) stage 3, GFR 30-59 ml/min: Cr is stable with calculated GFR at baseline range monitor tomorrow (9) HTN (hypertension): hold oral agents, he did not take any BP medications on 05/17 provide IV fluids to maintain volume status, very sensitive to low normal blood pressures (10) Dyslipidemia: LDL low at 63, HDL 37 hold statin due to allergy levels at goal anyway (11) History of ischemic cardiomyopathy: echo here shows preserved EF, mild LVH, no right to left shunt on bubble study examines euvolemic give IV fluids as he cannot drink safeley Subjective patient stable today, still with expressive aphasia he is swallowing well, no issues eating or taking medications no major changes today d/w Dr. Walsh, he will sign off at this time, he said that just singel antiplatelet therapy would be sufficient will just use Plavix updated patient's family at the bedside CT head today with some expected progression of stroke bed some edema but no mass effect, no midline shift Review of Systems Review of Systems: Unobtainable due to cognitive status (expressive aphasia) Physical Exam Constitutional: WD/WN, vitals as above Eyes: PERRL, conjunctivae normal, anicteric sclerae ENMT: external ear and nose normal, oropharynx normal Neck: trachea midline, no thyromegaly Respiratory: normal respiratory effort, lungs clear to auscultation Cardiovascular: RRR, no murmur, no edema Gastrointestinal (Abdomen): normal bowel sounds, soft, nontender, no hepatosplenomegaly Musculoskeletal: no cyanosis or clubbing, extremities motor strength 5/5 Head/Neck/Chest: normocephalic and head atraumatic Extremities: extremities normal to inspection and + abnormal strength (weakness in right arm, hand and leg) Skin: no rashes, warm and dry Neurologic: patellar DTR's 2+ bilat, sensation intact + confused; no focal motor deficits Speech / Cognition: + expressive aphasia and + abnormal cognition (not understanding all commands) Motor/Sensory: no tremor, normal movement, no pronator drift and no asterixis Cranial Nerves: PERRL, EOM intact bilaterally, normal facial strength, tongue midline, normal hearing and symmetric palate elevation Psychiatric: Orientation: alert; + not oriented x 3 (unable to accurately assess) Apperance: appeared stated age Lymphatic: no cervical or axillary lymphadenopathy Results & Data Vital Signs (Past 12 Hours) Vital Signs Temp Pulse Pulse Resp BP Pulse Ox 05/19/19 15:03 36.3 C L 64 18 136/73 94 05/19/19 11:11 36.4 C L 84 18 164/88 H 95 05/19/19 07:38 36.6 C 96 H 18 139/89 94 Laboratory Results Laboratory Results - last 24 hr 05/18/19 05/18/19 05/19/19 16:28 21:12 07:08 POC Glucose 164 H 233 H 158 H 05/19/19 11:20 POC Glucose [address] head IMPRESSION: 1. Expected evolution of the acute infarct in the left MCA territory affecting the left temporal, parietal, and occipital lobes. No hemorrhagic conversion. Expected mass effect. No midline shift. Medications Administered Current Inpatient Medications Aspirin (Ecotrin Ectab) 81 mg PO QAM [facility] Stop: 06/18/19 08:59 Clopidogrel Bisulfate (Plavix) 75 mg PO QAM [facility] Stop: 06/18/19 08:59 Dextrose (Dextrose 50%) 25 - 50 ml IV UD PRN; Protocol PRN Reason: Hypoglycemia Protocol Stop: 06/17/19 14:59 Enoxaparin Sodium (Lovenox) 40 mg SQ Q24H [facility] Stop: 06/17/19 07:44 Last Admin: 05/18/19 08:10 Dose: 40 mg Documented by: Glucagon (Glucagen) 1 mg IM UD PRN; Protocol PRN Reason: Hypoglycemia Protocol Stop: 06/17/19 14:59 Glucose (Glucose 40%) 15 - 30 gm PO UD PRN; Protocol PRN Reason: Hypoglycemia Protocol Stop: 06/17/19 14:59 Glucose (Dex4 Glucose) 4 - 8 tabs PO UD PRN; Protocol PRN Reason: Hypoglycemia Protocol Stop: 06/17/19 14:59 Sodium Chloride (Nss 1000ml) 1,000 mls @ 80 mls/hr IV .[id number] [facility] Stop: 06/17/19 08:44 Last Admin: 05/19/19 08:33 Dose: 80 mls/hr Documented by: Insulin Aspart (Novolog Flexpen) 0 units SC ACHS [facility] Stop: 06/17/19 11:59 Last Admin: 05/19/19 12:00 Dose: 8 units Documented by: Insulin Glargine (Lantus Solostar Pen) 10 units SC DAILY [facility] Stop: 06/17/19 08:59 Last Admin: 05/19/19 08:31 Dose: 10 units Documented by: Insulin Glargine (Lantus Solostar Pen) 0 units SC HS [facility]; Protocol Stop: 06/17/19 20:59 Last Admin: 05/18/19 21:31 Dose: 10 units Documented by: Miscellaneous (Carbohydrates For Hypoglycemia) 15 - 30 gm PO UD PRN PRN Reason: Hypoglycemia Treatment Stop: 06/17/19 14:59 Miscellaneous Information (Pharmacist Discharge Med Rec Consult) 1 ea N/A UD PRN PRN Reason: Consult Stop: 06/16/19 08:47 Miscellaneous Information (Consult Glycemic Management Pharmacy) 1 ea N/A UD S [facility] Stop: 06/16/19 10:15 Ondansetron HCl (Zofran) 4 mg IV Q4H PRN PRN Reason: Nausea Stop: 06/16/19 08:43 PG Care Time/CCT Total # of Minutes Spent Total Time Spent with Patient: Total time spent is greater than 50% in coordination of care (as documented) at patient's floor/unit and/or counseling patient: (1) Type 2 diabetes mellitus Diabetes mellitus complication detail: with peripheral angiopathy with gangrene Diabetes mellitus complication status: with circulatory complication Diabetes mellitus watermaster insulin use: without correction use Qualified Code(s): E11.52 - Type 2 diabetes mellitus with diabetic peripheral angiopathy with gangrene (2) CAD (coronary artery disease) Associated angina: without angina Coronary Disease-Associated Artery/Lesion type: [place] artery [place] vs. transplanted heart: [place] heart Qualified Code(s): I25.10 - Atherosclerotic heart disease of [place] coronary artery without angina pectoris (3) HTN (hypertension) Hypertension type: essential hypertension Qualified Code(s): I10 - Essential (primary) hypertension
[2019-05-20 06:44] LABS: Hematocrit (blood only) 41.2 % (42-52); Hemoglobin 13.9 g/dL (14.0-18.0); Mean Corpuscular Hemoglobin 32.4 pg (25-34); Mean Corpuscular Hgb Conc 33.7 g/dL (32-36); Mean Platelet Volume 10.8 fL (7.4-10.4); Platelet Count 277 K/uL (130-400); RDW Coefficient of Variation 14.2 % (11.5-14.5); RDW Standard Deviation 50.2 fL (36.4-46.3); Red Blood Count 4.29 M/uL (4.7-6.1); White Blood Count 10.01 K/uL (4.8-10.8)
[2019-05-20 07:23] LABS: BUN Creatinine Ratio 17.5 (10-20); Calcium 8.7 mg/dl (8.5-10.1); Est GFR (African American) 55.8; Est GFR (Non-African American) 48.1; Potassium 3.4 mmol/L (3.5-5.1)
[2019-05-20] MEDS: ENOXAPARIN INJ 40 MG/0.4 ML SYR SQ SCH (08:11)
[2019-05-20] MEDS: CLOPIDOGREL BISULFATE 75 MG TAB PO SCH (08:12)
[2019-05-20] MEDS: INSULIN ASPART 100 UNITS/ML 3 ML PEN SC SCH ×4 (08:24→21:22)
--- NOTE | 2019-05-20 08:48 | Pharmacy Report ---
Pharmacy Glycemic Short Note 2 - Date of Service May 20, 2019 - Glycemic Short BSG Results (Last 24 hours): 05/19/19 05/19/19 05/19/19 11:20 16:48 20:36 Glucose POC Glucose 197 H 196 H 180 H 05/20/19 05/20/19 05:54 07:23 Glucose 170 H POC Glucose 208 H OUTPATIENT ANTIDIABETIC REGIMEN: * Semaglutide 0.25mg Q week * Metformin 1gm PO BID * Glipizide 10mg PO BID * A1c = 8.1% on 05/17/19 ASSESSMENT: * Type 2 diabetic admitted for ischemic stroke, now s/p tPA administration on 04/16/19 * Patient is ordered T2DM diet and eating well yesterday and today * BSGs ranging 15-197 yesterday with a fasting BSG this morning of 208 * Patient received 52 units of insulin yesterday (22 units of which were basal) PLAN FOR INPATIENT GLYCEMIC CONTROL: * Hold outpatient diabetes medications (metformin, glipizide, semaglutide) * Basal insulin * Will increase to 14 units BID (weight/stress of 2) * Bolus insulin - will tighten for today and reassess tomorrow * NovoLog per scale Q4hrs while NPO * Goal Range: Low 110 mg/dL - High 140 mg/dL * Correction Factor: 20 mg/dL/unit * Nutritional / Prandial insulin per carb ratio of 1 unit per 7 grams CHO consumed PLAN FOR DISCHARGE: * A reasonable A1C goal for many non- adults is A1c less than 7%. However, a less stringent goal of less than 8% may be more appropriate for this patient given age and multiple comorbidities * Patient is slightly above this goal currently * Continue current outpatient regimen * Consider addition of another oral antidiabetic drug to achieve glycemic targets (such as a DPP-4 inhibitor - linagliptin 5 mg PO daily - requires no dosage adjustment in renal impairment)
[2019-05-20] MEDS ORDERED: INSULIN GLARGINE SOLOSTAR 100 UNITS/ML 3 ML PEN SC SCH ×2 (09:00)
--- NOTE | 2019-05-20 09:11 | CT Scan Report ---
CT SCAN OF THE BRAIN WITHOUT IV CONTRAST CLINICAL HISTORY: Follow-up stroke. COMPARISON STUDY: CT of the brain dated 05/19/2019. TECHNIQUE: Unenhanced axial CT scan of the brain is performed from the vertex to the skull base. A do se lowering technique was utilized adhering to the principles of ALARA. CT DOSE: 614.27 mGy.cm FINDINGS: Brain parenchyma: Again seen is loss of maurice-white matter differentiation throughout the left MCA ter ritory consistent with an evolving infarct. There is no midline shift. No hemorrhage is seen. No new foci of ischemia are suspected. There are age-related involutional changes noting mild/moderate patc hy subcortical and periventricular microangiopathic change. No extra-axial fluid collection is seen. Ventricles, sulci, cisterns: Prominent secondary to involutional change. Intracranial vasculature: There is atherosclerotic calcification of the cavernous carotid arteries. Calvarium: Unremarkable. Sinuses and mastoids: Trace mucosal thickening is noted in the left maxillary antrum. The remaining v isualized paranasal sinuses are clear. The mastoid air cells are well pneumatized. Orbits: The bony orbits are grossly intact. There are bilateral ocular lens implants. IMPRESSION: 1. There is continuing evolution of a large left MCA territory infarct. 2. There is no hemorrhage or midline shift. Electronically signed by: Tyrell Pinto M.D. 05/20/2019 9:10 AM
[2019-05-20] MEDS: INSULIN GLARGINE SOLOSTAR 100 UNITS/ML 3 ML PEN SC SCH (21:23)
--- NOTE | 2019-05-20 22:03 | Hospitalist Progress Note ---
Date of Service May 20, 2019 Assessment & Plan (1) Acute cerebral ischemia: acute ischemic stroke due to severe left carotid artery stenosis, possible acute thrombus also with severe vertebral artery stenosis symptoms on admission were aphasia, right sided neglect, left facial droop stroke alert on admission received tPA and initially had improvement in symptoms, was speaking clearly and was oriented, no motor deficits and left facial droop resolved about 3-4 hours after tPA he exhibited profound motor deficit on right side, flaccid paralysis, aphasia, right sided neglect MRI shows acute and subacute stroke in left MCA distribution in occipital, parietal and frontal lobe discussed case with stroke neurologist at [place] as well as interventionalist at [place] no role for intervention on the left carotid, would only increase risk of further emboli and likely bleed from reperfusion only option for treatment would be antiplatelets high risk for either bleeding or cerebral edema and herniation D/W neurology: no need for further imaging as patient appears to be stable. Patient appears to be more awake today as well. Will need to get PT/OT and patient will likely require halfway placement. Given extent of his stroke, will likely get palliative care team involved as well. on admission: CT head with possible ischemic change in left occipital lobe CTA neck with advanced carotid artery disease, total occlusion on the left, 70% on the right severe stenosis/near total occlusion of left vertebral artery plan: treat with Plavix 75mg daily will stop fluids since he is eating well allergic reactions to statin therapy in the past, holding, his LDL was actually low at 63 BP acceptable Novolog SS for DM repeat CT head in the morning PT/OT following as well as speech discussed with family that anticipate he could be discharged midweek as long as he remains stable still high risk for increasing edema and herniation as well as at risk for hemorrhagic conversion and further ischemic strokes 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 (2) Carotid arterial disease: severe disease, total occlusion on left ICA and 70% on the right ICA no role for intervention Plavix daily, no statins due to allergy (3) Ulcer of toe of left foot: was planned for surgery, possible amputation 05/17 cancelled due to acute stroke (4) Toe ulcer due to DM: (5) Type 2 diabetes mellitus: Novolog SS ordered hold oral agents diabetic diet (6) PAD (peripheral artery disease): patient typically on aspirin and Plavix these were held for surgery continue to hold for 24 hours after tPA resume Plavix today (7) CAD (coronary artery disease): no chest pain reported to family prior to becoming aphasic aspirin RI (8) CKD (chronic kidney disease) stage 3, GFR 30-59 ml/min: Cr is stable with calculated GFR at baseline range monitor tomorrow (9) HTN (hypertension): hold oral agents, he did not take any BP medications on 05/17 provide IV fluids to maintain volume status, very sensitive to low normal blood pressures (10) Dyslipidemia: LDL low at 63, HDL 37 hold statin due to allergy levels at goal anyway (11) History of ischemic cardiomyopathy: echo here shows preserved EF, mild LVH, no right to left shunt on bubble study examines euvolemic give IV fluids as he cannot drink safeley Subjective Patient appears to be more interactive today. He still has expressive aphasia, but he is able to communicate some words like: "ok". However he still does not follow simple commands. Review of Systems Review of Systems: Unobtainable due to mental health condition Physical Exam Physical Exam: Constitutional: WD/WN, vitals as above Eyes: PERRL, conjunctivae normal, anicteric sclerae ENMT: external ear and nose normal, oropharynx normal Neck: trachea midline, no thyromegaly Respiratory: normal respiratory effort, lungs clear to auscultation Cardiovascular: RRR, no murmur, no edema Gastrointestinal (Abdomen): normal bowel sounds, soft, nontender, no hepatosplenomegaly Musculoskeletal: no cyanosis or clubbing, extremities motor strength 5/5 Head/Neck/Chest: normocephalic and head atraumatic Extremities: extremities normal to inspection and + abnormal strength (weakness in right arm, hand and leg) Skin: no rashes, warm and dry Neurologic: patellar DTR's 2+ bilat, sensation intact + confused; no focal motor deficits Speech / Cognition: + expressive aphasia and + abnormal cognition (not understanding all commands) Motor/Sensory: no tremor, normal movement, no pronator drift and no asterixis Cranial Nerves: PERRL, EOM intact bilaterally, normal facial strength, tongue midline, normal hearing and symmetric palate elevation Psychiatric: Orientation: alert; + not oriented x 3 (unable to accurately assess) Apperance: appeared stated age Lymphatic: no cervical or axillary lymphadenopathy Results & Data Vital Signs (Past 12 Hours) Vital Signs Temp Pulse Pulse Resp BP Pulse Ox 05/20/19 19:31 36.6 C 84 17 160/87 H 95 05/20/19 16:00 108 H 05/20/19 15:29 36.7 C 104 H 17 164/94 H 93 05/20/19 11:00 36.6 C 92 H 22 166/88 H 95 PG Care Time/CCT Total # of Minutes Spent Total Time Spent with Patient: Total time spent is greater than 50% in coordination of care (as documented) at patient's floor/unit and/or counseling patient: (1) Type 2 diabetes mellitus Diabetes mellitus complication detail: with peripheral angiopathy with gangrene Diabetes mellitus complication status: with circulatory complication 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 transplanted heart: [place] heart Qualified Code(s): I25.10 - Atherosclerotic heart disease of [place] coronary artery without angina pectoris (3) HTN (hypertension) Hypertension type: essential hypertension Qualified Code(s): I10 - Essential (primary) hypertension
[2019-05-21 07:02] LABS: Est GFR (African American) 62.4; Est GFR (Non-African American) 53.8
[2019-05-21] MEDS: CLOPIDOGREL BISULFATE 75 MG TAB PO SCH (07:46)
[2019-05-21] MEDS: ENOXAPARIN INJ 40 MG/0.4 ML SYR SQ SCH (07:46)
[2019-05-21] MEDS: INSULIN ASPART 100 UNITS/ML 3 ML PEN SC SCH ×4 (07:48→21:49)
[2019-05-21] MEDS: INSULIN GLARGINE SOLOSTAR 100 UNITS/ML 3 ML PEN SC SCH ×2 (07:50→21:48)
--- NOTE | 2019-05-21 14:18 | Pharmacy Report ---
Pharmacy Glycemic Short Note 2 - Date of Service May 21, 2019 - Glycemic Short BSG Results (Last 24 hours): 05/20/19 05/20/19 05/21/19 16:33 20:55 07:30 POC Glucose 106 H 171 H 167 H 05/21/19 11:48 POC Glucose 184 H OUTPATIENT ANTIDIABETIC REGIMEN: * Semaglutide 0.25mg Q week * Metformin 1gm PO BID * Glipizide 10mg PO BID * A1c = 8.1% on 05/17/19 ASSESSMENT: * Type 2 diabetic admitted for ischemic stroke, now s/p tPA administration on 04/16/19 * Patient is ordered T2DM diet - patient eating well * BSGs ranging 106-208 yesterday with a fasting BSG this morning of 167 * Patient received 57 units of insulin yesterday (28 units of which were basal) * SCr continues to improve (currently 1.24 mg/dL from 1.6 mg/dL on 05/17) PLAN FOR INPATIENT GLYCEMIC CONTROL: * Hold outpatient diabetes medications (metformin, glipizide, semaglutide) * Basal insulin * Will continue 14 units BID (weight/stress of 2) * Bolus insulin - continue more aggressive parameters for today and reassess tomorrow * NovoLog per scale Q6hrs while NPO * Goal Range: Low 110 mg/dL - High 140 mg/dL * Correction Factor: 20 mg/dL/unit * Nutritional / Prandial insulin per carb ratio of 1 unit per 7 grams CHO consumed PLAN FOR DISCHARGE: * A reasonable A1C goal for many non- adults is A1c less than 7%. However, a less stringent goal of less than 8% may be more appropriate for this patient given age and multiple comorbidities * Patient is slightly above this goal currently * Continue current outpatient regimen * Could consider addition of a basal insulin (currently required Lantus 28 units daily) to achieve glycemic targets
--- NOTE | 2019-05-21 22:49 | Hospitalist Progress Note ---
Date of Service May 21, 2019 Assessment & Plan (1) Acute cerebral ischemia: acute ischemic stroke due to severe left carotid artery stenosis, possible acute thrombus also with severe vertebral artery stenosis symptoms on admission were aphasia, right sided neglect, left facial droop stroke alert on admission received tPA and initially had improvement in symptoms, was speaking clearly and was oriented, no motor deficits and left facial droop resolved about 3-4 hours after tPA he exhibited profound motor deficit on right side, flaccid paralysis, aphasia, right sided neglect MRI shows acute and subacute stroke in left MCA distribution in occipital, parietal and frontal lobe discussed case with stroke neurologist at [place] as well as interventionalist at [place] no role for intervention on the left carotid, would only increase risk of further emboli and likely bleed from reperfusion only option for treatment would be antiplatelets high risk for either bleeding or cerebral edema and herniation D/W neurology: no need for further imaging as patient appears to be stable. Patient appears to be more awake today as well. Will need to get PT/OT and patient will likely require [facility] placement. Given extent of his stroke, will likely get palliative care team involved as well. on admission: CT head with possible ischemic change in left occipital lobe CTA neck with advanced carotid artery disease, total occlusion on the left, 70% on the right severe stenosis/near total occlusion of left vertebral artery plan: treat with Plavix 75mg daily will stop fluids since he is eating well allergic reactions to statin therapy in the past, holding, his LDL was actually low at 63 BP acceptable Novolog SS for DM repeat CT head in the morning PT/OT following as well as speech discussed with family that anticipate he could be discharged midweek as long as he remains stable Will need to have discussion with palliative care for goals of care. High chance patient will not fully recover. (2) Carotid arterial disease: severe disease, total occlusion on left ICA and 70% on the right ICA no role for intervention Plavix daily, no statins due to allergy (3) Ulcer of toe of left foot: was planned for surgery, possible amputation 05/17 cancelled due to acute stroke (4) Toe ulcer due to DM: (5) Type 2 diabetes mellitus: Novolog SS ordered hold oral agents diabetic diet (6) PAD (peripheral artery disease): patient typically on aspirin and Plavix these were held for surgery continue to hold for 24 hours after tPA resume Plavix today (7) CAD (coronary artery disease): no chest pain reported to family prior to becoming aphasic aspirin DC (8) CKD (chronic kidney disease) stage 3, GFR 30-59 ml/min: Cr is stable with calculated GFR at baseline range monitor tomorrow (9) HTN (hypertension): hold oral agents, he did not take any BP medications on 05/17 provide IV fluids to maintain volume status, very sensitive to low normal blood pressures (10) Dyslipidemia: LDL low at 63, HDL 37 hold statin due to allergy levels at goal anyway (11) History of ischemic cardiomyopathy: echo here shows preserved EF, mild LVH, no right to left shunt on bubble study examines euvolemic give IV fluids as he cannot drink safeley Subjective Patient continues to have expressive aphasia. Patient mumbles a few words, but not able to participate in a meaningful conversation. His "life partner" is by his side, her questions were answered. I was informed by nurse that a different family member is his POA. It appears it is his sister. Patient having difficulty swallowing liquids as he is unable to close his mouth. Review of Systems Review of Systems: Unobtainable due to mental health condition Physical Exam Physical Exam: Constitutional: WD/WN, vitals as above, no longer having left gaze, able to move head, smile. Unable to close mouth to drink Eyes: PERRL, conjunctivae normal, anicteric sclerae ENMT: external ear and nose normal, oropharynx normal Neck: trachea midline, no thyromegaly Respiratory: normal respiratory effort, lungs clear to auscultation Cardiovascular: RRR, no murmur, no edema Gastrointestinal (Abdomen): normal bowel sounds, soft, nontender, no hepatosplenomegaly Musculoskeletal: no cyanosis or clubbing, L extremities motor strength 5/5 R ext: no muscle strength Head/Neck/Chest: normocephalic and head atraumatic Extremities: extremities normal to inspection and + abnormal strength (weakness in right arm, hand and leg) Skin: no rashes, warm and dry Neurologic: patellar DTR's 2+ bilat, sensation intact, alert; no focal motor deficits Speech / Cognition: + expressive aphasia and + abnormal cognition (not understanding all commands) Motor/Sensory: no tremor, normal movement, no pronator drift and no asterixis Cranial Nerves: PERRL, EOM intact bilaterally, normal facial strength, tongue midline, normal hearing and symmetric palate elevation Psychiatric: Orientation: alert; + not oriented x 3 (unable to accurately assess) Apperance: appeared stated age Lymphatic: no cervical or axillary lymphadenopathy Results & Data Vital Signs (Past 12 Hours) Vital Signs Temp Pulse Pulse Resp BP Pulse Ox 05/21/19 19:04 36.6 C 89 18 130/82 95 05/21/19 16:00 36.5 C 75 83 19 126/81 96 05/21/19 11:13 36.5 C 50 L 17 126/74 90 PG Care Time/CCT Total # of Minutes Spent Total Time Spent with Patient: Total time spent is greater than 50% in coordination of care (as documented) at patient's floor/unit and/or counseling patient: (1) Type 2 diabetes mellitus Diabetes mellitus complication detail: with peripheral angiopathy with gangrene Diabetes mellitus complication status: with circulatory complication 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 transplanted heart: [place] heart Qualified Code(s): I25.10 - Atherosclerotic heart disease of [place] coronary artery without angina pectoris (3) HTN (hypertension) Hypertension type: essential hypertension Qualified Code(s): I10 - Essential (primary) hypertension
[2019-05-22] MEDS: ENOXAPARIN INJ 40 MG/0.4 ML SYR SQ SCH (08:23)
[2019-05-22] MEDS: INSULIN ASPART 100 UNITS/ML 3 ML PEN SC SCH ×4 (08:23→21:02)
[2019-05-22] MEDS: INSULIN GLARGINE SOLOSTAR 100 UNITS/ML 3 ML PEN SC SCH ×2 (08:24→21:01)
[2019-05-22] MEDS: CLOPIDOGREL BISULFATE 75 MG TAB PO SCH (08:25)
--- NOTE | 2019-05-22 09:45 | Pharmacy Report ---
Pharmacy Glycemic Short Note 2 - Date of Service May 22, 2019 - Glycemic Short BSG Results (Last 24 hours): 05/21/19 05/21/19 05/21/19 11:48 16:48 20:42 POC Glucose 184 H 181 H 207 H 05/22/19 07:21 POC Glucose 140 H OUTPATIENT ANTIDIABETIC REGIMEN: * Semaglutide 0.25mg Q week * Metformin 1gm PO BID * Glipizide 10mg PO BID * A1c = 8.1% on 05/17/19 ASSESSMENT: * Type 2 diabetic admitted for ischemic stroke, now s/p tPA administration on 04/16/19 * Patient is ordered T2DM diet - patient eating well * BSGs ranging 167-207 yesterday with a fasting BSG this morning of 140 * Patient received 57 units of insulin yesterday (28 units of which were basal) * SCr improved from time of admission (currently 1.24 mg/dL from 1.6 mg/dL on 05/17) * Per neurology, patient has extremely poor prognosis - no need for stringent glycemic targets * Emphasis will be on limiting hypoglycemia PLAN FOR INPATIENT GLYCEMIC CONTROL: * Hold outpatient diabetes medications (metformin, glipizide, semaglutide) * Basal insulin * Will increase to Lantus 17 units BID (approximately 20% increase from previous basal dose) * BSGs still elevated throughout the day indicated basal deficiency (limited risk for hypoglycemia by increasing basal insulin based on previous BSGs) * Bolus insulin - will adjust goal range based on poor prognosis with an emphasis on limiting hypoglycemia * NovoLog per scale Q6hrs while NPO * Goal Range: Low 120 mg/dL - High 160 mg/dL * Correction Factor: 20 mg/dL/unit * Nutritional / Prandial insulin per carb ratio of 1 unit per 7 grams CHO consumed PLAN FOR DISCHARGE: * A reasonable A1C goal of less than 8% may be more appropriate for this patient given age, multiple comorbidities, and now post-stroke (with poor prognosis) * Patient is slightly above this goal currently * Continue current outpatient regimen * Could consider addition of a basal insulin if warranted depending on goals of care at discharge * (anticipating basal needs of at least 34 units daily)
--- NOTE | 2019-05-22 14:28 | Palliative Care Consultation ---
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 Additional PMH includes PAD, CAD, HTN, HLD, and DM2. He was to undergo a first and second toe amputation today. Upon evaluation, his NIH stroke scale was found to be approximately 7. He had complete aphasia and left facial droop. He was given TPA at around 6:30 AM. He was then brought to the ICU with some improvement in symptoms and was actually able to speak. Subsequently he went to MRI and there he had altered mental status and complete global aphasia once again. He had complete hemineglect in the right side and left gaze preference. Neurologist on-call, Dr. Walsh was called and examined the patient. A brain MRI was performed and showed multiple areas of acute and subacute infarcts with a confirmed CVA in the MCA, L occipital, parietal and frontal loves, with extensive right sided flacidity and global aphagia. The patient per neurology has a very poor prognosis. He has shown some signs of waking up a little, with opening his eyes, but no verbal communication or moving of his limbs. Palliative Care was consulted to discuss goals of care. -I met with the patient in room 230-2. Patient's significant other, Rosette and the patients sister, Sofy were at the bedside. -The patient opened his eyes slightly, but his mouth remained opened and was not attempting to communicate in any way. -The patient does not have a living will that they know of. Next of kin regarding decision making is oSfy, his sister who would like Rosette involved since they have been together so long. No official POA documentation has been completed and since patient is aphasic, unable to appoint a POA. The patient does have a son, but he is estranged. The patient has a daughter. -Together, we spoke at length about his condition and liklihood of this being his unfortunate 'new normal'. Rosette stated he would not want anything done that would provide life-prolongation. -We completed a POLST form indicating DNR/DNI, Comfort measures only, trial abx, and no artificial nutrition/hydration. Both Sofy and Rosette signed this. -We discussed the possibility of him participating initially in a little bit of rehab for evaluation of regaining some muscle use. Rosette asked about [facility] which I expressed would be too much for him and he likely would not qualify in his current condition. -Referrals to be placed at SNF at [facility] and [facility] as they are both close to Rosette's home. Rosette's daughter is at [facility]. Likely eventually will remain a permanent resident. -Judy from Case [employer] participated in a portion of the meeting and provided additional support at this is particularly hard for Rosette. Sofy was instrumental in providing support to Rosette. On multiple occasions throughout our conversation Rosette stated "You gotta tell me what to do, Sofy" -For now, we will continue current treatment, with no escalation in care. -Currently no symptom management needs, appears in no apparent distress and is comfortable. -Hemodynamically the patient is stable and ok for discharge. Of course, this c ould change prior to discharge. -Hospitalist aware of above. Await direction from case management. -PPS: 20% (2) History of ischemic cardiomyopathy: (3) CKD (chronic kidney disease) stage 3, GFR 30-59 ml/min: (4) PAD (peripheral artery disease): (5) Right hemiplegia: (6) Right-sided visual neglect: History of Present Illness Reason for Consultation: goals of care Requesting Physician: Dr. 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 Additional PMH includes PAD, CAD, HTN, HLD, and DM2. He was to undergo a first and second toe amputation today. Upon evaluation, his NIH stroke scale was found to be approximately 7. He had complete aphasia and left facial droop. He was given TPA at around 6:30 AM. He was then brought to the ICU with some improvement in symptoms and was actually able to speak. Subsequently he went to MRI and there he had altered mental status and complete global aphasia once again. He had complete hemineglect in the right side and left gaze preference. Neurologist on-call, Dr. Walsh was called and examined the patient. A brain MRI was performed and showed multiple areas of acute and subacute infarcts with a confirmed CVA in the MCA, L occipital, parietal and frontal loves, with extensive right sided facidity and global aphagia. The patient per neurology has a very poor prognosis. He has shown some signs of waking up a little, with opening his eyes, but no verbal communication or moving of his limbs. Palliative Care was consulted to discuss goals of care. Please see the Assessment and Plan portion of this chart for further details. Thank you kindly for involving the palliative care team with this patient. We will follow through the hospitalization and monitor for any symptom management needs and will continue to provide support to the patients significant other. Allergies Allergy/AdvReac Type Severity Reaction Status Date / Time atorvastatin Allergy Unknown Verified 05/17/19 05:57 potassium Allergy Unknown Verified 05/17/19 05:57 Home Medications Home Medications Medication Instructions Recorded Confirmed Type metformin 1,000 mg PO BID 01/14/19 05/17/19 History aspirin 81 mg tablet,delayed 81 mg PO DAILY tab 05/08/19 05/17/19 History release clopidogrel 75 mg tablet 75 mg PO DAILY tab 05/08/19 05/17/19 History finasteride 5 mg tablet 5 mg PO DAILY #30 tab 05/08/19 05/17/19 History glipizide 10 mg tablet 10 mg PO BID 05/08/19 05/17/19 History hydrocodone 5 mg-acetaminophen 325 1 tab PO Q6H PRN 05/08/19 05/17/19 History mg tablet polyethylene glycol 3350 17 17 gm PO DAILY #1 gm 05/08/19 05/17/19 History gram/dose oral powder semaglutide 0.25 mg or 0.5 mg (2 0.25 mg SQ WEEKLY ml 05/08/19 05/17/19 History mg/1.5 mL) subcutaneous pen injector sildenafil (antihypertensive) 20 100 mg PO DAILY PRN #30 tab 05/08/19 05/17/19 History mg tablet tamsulosin 0.4 mg capsule 0.4 mg PO DAILY cap 05/08/19 05/17/19 History temazepam 15 mg capsule 15 mg PO DAILY cap 05/08/19 05/17/19 History carvedilol 6.25 mg PO BID 05/17/19 05/17/19 History potassium citrate 10 meq PO DAILY 05/17/19 05/17/19 History triamcinolone acetonide 1 applic TOPICAL BID 05/17/19 05/17/19 History Patient History Medical History CAD (coronary artery disease) (Chronic) History of ischemic cardiomyopathy LVEF 35-40% previously. Rpt echo EF had improved to 55-60% CKD (chronic kidney disease) stage 3, GFR 30-59 ml/min HTN (hypertension) Dyslipidemia Diabetic peripheral neuropathy (Acute) Neuropathic ulcer of toe of left foot (Acute) Diabetes mellitus, type 2 History of kidney stones STEMI (ST elevation myocardial infarction) 03/2015, tx with SUNITHA. Surgical History History of tonsillectomy History of herniorrhaphy inguinal History of lithotripsy cystolithopaxy @ [facility] 07/16/18, LMA #5, smooth IV induction. History of open reduction and internal fixation (ORIF) procedure right ankle S/P cardiac cath 2014, SUNITHA to LAD. PATIENT SYTAES HE DOES NOT REMEMBER HAVING CATH Hx of total hip arthroplasty (Resolved) Hx of shoulder surgery LEFT Family History Father , age 81; "old age" No problems noted. Mother , age 88; "old age" No problems noted. 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 Feels Safe at Home: Yes Smoking Status: Former smoker Tobacco Type: cigarettes ; Cigarettes Per Day: 1/2 ppd ; Second Hand Exposure: No ; Hx Alcohol Use: No Hx Substance Use: No Review of Systems Review of Systems: Unobtainable due to cognitive status Physical Exam Constitutional: + ill appearing, average body habitus and + lethargic Eyes: PERRL, conjunctivae normal, anicteric sclerae Respiratory: normal respiratory effort Auscultation: + diminished lung sounds Cardiovascular: RRR, no murmur, no edema Gastrointestinal (Abdomen): normal bowel sounds, soft, nontender, no hepatosplenomegaly Musculoskeletal: right sided flacid. left side 1/5. patient + stuporous Skin: no rashes, warm and dry Psychiatric: Orientation: alert (intermittently. global aphagia) Genitourinary: incontinent, no lund in place Results & Data Vital Signs (Past 12 Hours) Vital Signs Temp Pulse Resp BP Pulse Ox 05/22/19 11:45 36.6 C 73 17 146/99 H 98 05/22/19 07:08 36.5 C 77 16 135/79 93 05/22/19 02:51 36.3 C L 71 16 157/81 H 97 PG Care Time/CCT Total # of Minutes Spent Total Time Spent with Patient: Total time spent is greater than 50% in coordination of care (as documented) at patient's floor/unit and/or counseling patient:100 Time Spent Midlevel Total time spent 100 minutes with > 50% of that time spent assessing the patient, discussing goals of care and completing a POLST form with the patients S.O. and sister
--- NOTE | 2019-05-22 22:59 | Hospitalist Progress Note ---
Date of Service May 22, 2019 Assessment & Plan (1) Acute cerebral ischemia: acute ischemic stroke due to severe left carotid artery stenosis, possible acute thrombus also with severe vertebral artery stenosis symptoms on admission were aphasia, right sided neglect, left facial droop stroke alert on admission received tPA and initially had improvement in symptoms, was speaking clearly and was oriented, no motor deficits and left facial droop resolved about 3-4 hours after tPA he exhibited profound motor deficit on right side, flaccid paralysis, aphasia, right sided neglect MRI shows acute and subacute stroke in left MCA distribution in occipital, parietal and frontal lobe discussed case with stroke neurologist at [place] as well as interventionalist at [place] no role for intervention on the left carotid, would only increase risk of further emboli and likely bleed from reperfusion only option for treatment would be antiplatelets high risk for either bleeding or cerebral edema and herniation, thankfully this did not occur D/W neurology: no need for further imaging as patient appears to be stable. Patient appears to be more awake today as well. Will need to get PT/OT and patient will likely require fdc placement. Given extent of his stroke, will likely get palliative care team involved as well. Family had discussion with patient, at this point, no escalation of care. And will like to have rehab. on admission: CT head with possible ischemic change in left occipital lobe CTA neck with advanced carotid artery disease, total occlusion on the left, 70% on the right severe stenosis/near total occlusion of left vertebral artery plan: treat with Plavix 75mg daily will stop fluids since he is eating well allergic reactions to statin therapy in the past, holding, his LDL was actually low at 63 BP acceptable Novolog SS for DM repeat CT head in the morning PT/OT following as well as speech discussed with family that anticipate he could be discharged midweek as long as he remains stable Will need to have discussion with palliative care for goals of care. High chance patient will not fully recover. (2) Carotid arterial disease: severe disease, total occlusion on left ICA and 70% on the right ICA no role for intervention Plavix daily, no statins due to allergy (3) Ulcer of toe of left foot: was planned for surgery, possible amputation 05/17 cancelled due to acute stroke (4) Toe ulcer due to DM: (5) Type 2 diabetes mellitus: Novolog SS ordered hold oral agents diabetic diet (6) PAD (peripheral artery disease): patient typically on aspirin and Plavix these were held for surgery continue to hold for 24 hours after tPA resume Plavix today (7) CAD (coronary artery disease): no chest pain reported to family prior to becoming aphasic aspirin MN (8) CKD (chronic kidney disease) stage 3, GFR 30-59 ml/min: Cr is stable with calculated GFR at baseline range monitor tomorrow (9) HTN (hypertension): hold oral agents, he did not take any BP medications on 05/17 provide IV fluids to maintain volume status, very sensitive to low normal blood pressures (10) Dyslipidemia: LDL low at 63, HDL 37 hold statin due to allergy levels at goal anyway (11) History of ischemic cardiomyopathy: echo here shows preserved EF, mild LVH, no right to left shunt on bubble study examines euvolemic give IV fluids as he cannot drink safely Spent time discussing with specialists Subjective Patient has expressive aphasia and is unable to provide significant history. Review of Systems Review of Systems: Unobtainable due to mental health condition Physical Exam Physical Exam: Constitutional: WD/WN, vitals as above, no longer having left gaze, able to move head, smile. Unable to close mouth to drink Eyes: PERRL, conjunctivae normal, anicteric sclerae ENMT: external ear and nose normal, oropharynx normal Neck: trachea midline, no thyromegaly Respiratory: normal respiratory effort, lungs clear to auscultation Cardiovascular: RRR, no murmur, no edema Gastrointestinal (Abdomen): normal bowel sounds, soft, nontender, no hepatosplenomegaly Musculoskeletal: no cyanosis or clubbing, L extremities motor strength 5/5 R ex t: no muscle strength Head/Neck/Chest: normocephalic and head atraumatic Extremities: extremities normal to inspection and + abnormal strength (weakness in right arm, hand and leg) Skin: no rashes, warm and dry Neurologic: patellar DTR's 2+ bilat, sensation intact, alert; no focal motor deficits Speech / Cognition: + expressive aphasia and + abnormal cognition (not understanding all commands) Motor/Sensory: no tremor, normal movement, no pronator drift and no asterixis Cranial Nerves: PERRL, EOM intact bilaterally, normal facial strength, tongue midline, normal hearing and symmetric palate elevation Psychiatric: Orientation: alert; + not oriented x 3 (unable to accurately assess) Apperance: appeared stated age Lymphatic: no cervical or axillary lymphadenopathy Results & Data Vital Signs (Past 12 Hours) Vital Signs Temp Pulse Pulse Resp BP Pulse Ox 05/22/19 19:50 36.5 C 90 19 148/77 H 96 05/22/19 16:00 88 05/22/19 15:53 36.5 C 87 18 141/92 H 97 05/22/19 11:45 36.6 C 73 17 146/99 H 98 PG Care Time/CCT Total # of Minutes Spent Total Time Spent with Patient: Total time spent is greater than 50% in coordination of care (as documented) at patient's floor/unit and/or counseling patient: (1) Type 2 diabetes mellitus Diabetes mellitus complication detail: with peripheral angiopathy with gangrene Diabetes mellitus complication status: with circulatory complication Diabetes mellitus tank terminal gauger insulin use: without fdc use Qualified Code(s): E11.52 - Type 2 diabetes mellitus with diabetic peripheral angiopathy with gangrene (2) CAD (coronary artery disease) Associated angina: without angina Coronary Disease-Associated Artery/Lesion type: [place] artery [place] vs. transplanted heart: [place] heart Qualified Code(s): I25.10 - Atherosclerotic heart disease of [place] coronary artery without angina pectoris (3) HTN (hypertension) Hypertension type: essential hypertension Qualified Code(s): I10 - Essential (primary) hypertension
[2019-05-23] MEDS: ENOXAPARIN INJ 40 MG/0.4 ML SYR SQ SCH (08:19)
[2019-05-23] MEDS: CLOPIDOGREL BISULFATE 75 MG TAB PO SCH (08:19)
[2019-05-23] MEDS: INSULIN GLARGINE SOLOSTAR 100 UNITS/ML 3 ML PEN SC SCH (08:21)
[2019-05-23] MEDS: INSULIN ASPART 100 UNITS/ML 3 ML PEN SC SCH ×2 (08:23→11:57)
[2019-05-23] MEDS ORDERED: STROKE PATIENT DISCHARGE STA (14:36)
--- NOTE | 2019-06-03 07:53 | Discharge Summary ---
Date of Service May 23, 2019 Admission HPI Per Admitting Provider 84 yo male with history of DM type II, severe PAD, CAD, HTN, dyslipidemia and recent history of left 1st and 2nd toe diabetic ulcers failing to heal, presented to the ED via family vehicle after he experienced sudden change in responsiveness at 430am this morning. The patient was awake already because he was planning on coming to the hospital for surgery on his 1st and 2nd toe. According to his and family friend he was normal at 4am, no issues speaking. Abrupt change occurred at 430am, he would not speak, would not respond to family and friends. Family noted a left facial droop. He was moving all his extremities, able to walk without difficulty. He could not express if he had any other symptoms because he could not talk. He was able to understand instructions as he walked to the car with family and came to the emergency room. According to patient's he was acting normal the past few days, she did not notice anything different. He had stopped his aspirin and Plavix as instructed, this happened over a week ago. He had not complained of any fever or chills, no chest pain, no dyspnea, no abdominal pain or vomiting. He had been eating well up until last night and then was NPO after midnight for surgery this morning. He did not eat this morning, did not take any medications. In the ED he was found to have expressive aphasia, he had a left facial droop, he had right sided neglect. No focal motor deficits. Stroke alert called since he was within the 3 hour window and symptoms not improving he was given tPA. The left sided facial droop resolved but he still had aphasia. Principal Diagnosis Acute cerebral ischemia. Discharge Exam Constitutional: WD/WN, vitals as above, no longer having left gaze, able to move head, smile. Unable to close mouth to drink Eyes: PERRL, conjunctivae normal, anicteric sclerae ENMT: external ear and nose normal, oropharynx normal Neck: trachea midline, no thyromegaly Respiratory: normal respiratory effort, lungs clear to auscultation Cardiovascular: RRR, no murmur, no edema Gastrointestinal (Abdomen): normal bowel sounds, soft, nontender, no hepatosplenomegaly Musculoskeletal: no cyanosis or clubbing, L extremities motor strength 5/5 R ext: no muscle strength Head/Neck/Chest: normocephalic and head atraumatic Extremities: extremities normal to inspection and + abnormal strength (weakness in right arm, hand and leg) Skin: no rashes, warm and dry Neurologic: patellar DTR's 2+ bilat, sensation intact, alert; no focal motor deficits Speech / Cognition: + expressive aphasia and + abnormal cognition (not understanding all commands) Motor/Sensory: no tremor, normal movement, no pronator drift and no asterixis Cranial Nerves: PERRL, EOM intact bilaterally, normal facial strength, tongue midline, normal hearing and symmetric palate elevation Psychiatric: Orientation: alert; + not oriented x 3 (unable to accurately assess) Apperance: appeared stated age Lymphatic: no cervical or axillary lymphadenopathy Discharge Data Allergies Allergy/AdvReac Type Severity Reaction Status Date / Time atorvastatin Allergy Unknown Verified 05/17/19 05:57 potassium Allergy Unknown Verified 05/17/19 05:57 Consultations 05/17/19 07:22 ED Decision to Admit Stat 05/17/19 08:44 Consult Case Management - Discharge Planning Routine Consult Case Management - Discharge Planning Routine Consult Lan Administrator Routine Consult Neurology Routine 05/21/19 14:25 Consult Palliative Care Routine Ordered Studies 05/17/19 05:48 CT head/brain wo con Urgent 05/17/19 05:57 CT angio head w con Urgent CT angio neck with con Urgent 05/17/19 08:44 MR brain wo con Routine 05/18/19 07:39 CT head/brain wo con Urgent 05/19/19 08:00 CT head/brain wo con Urgent 05/20/19 08:00 CT head/brain wo con Routine Hospital Course (1) Acute cerebral ischemia: acute ischemic stroke due to severe left carotid artery stenosis, possible acute thrombus also with severe vertebral artery stenosis symptoms on admission were aphasia, right sided neglect, left facial droop stroke alert on admission received tPA and initially had improvement in symptoms, was speaking clearly and was oriented, no motor deficits and left facial droop resolved about 3-4 hours after tPA he exhibited profound motor deficit on right side, flaccid paralysis, aphasia, right sided neglect MRI shows acute and subacute stroke in left MCA distribution in occipital, parietal and frontal lobe discussed case with stroke neurologist at [facility] as well as interventionalist at [facility] no role for intervention on the left carotid, would only increase risk of furth er emboli and likely bleed from reperfusion only option for treatment would be antiplatelets high risk for either bleeding or cerebral edema and herniation, thankfully this did not occur D/W neurology: no need for further imaging as patient appears to be stable. Patient appears to be more awake today as well. Had to get PT/OT as patient likely required continuous churn buttermaker placement. Given extent of his stroke, Had palliative care team involved as well. Family had discussion with patient, at this point, no escalation of care. And will like to have rehab. on admission: CT head with possible ischemic change in left occipital lobe CTA neck with advanced carotid artery disease, total occlusion on the left, 70% on the right severe stenosis/near total occlusion of left vertebral artery plan: treat with Plavix 75mg daily allergic reactions to statin therapy in the past, holding, his LDL was actually low at 63 BP acceptable High chance patient will not fully recover. (2) Carotid arterial disease: severe disease, total occlusion on left ICA and 70% on the right ICA no role for intervention Plavix daily, no statins due to allergy (3) Ulcer of toe of left foot: was planned for surgery, possible amputation 05/17 cancelled due to acute stroke (4) Toe ulcer due to DM: (5) Type 2 diabetes mellitus: Novolog SS ordered hold oral agents diabetic diet (6) PAD (peripheral artery disease): patient typically on aspirin and Plavix these were held for surgery continue to hold for 24 hours after tPA resume Plavix today (7) CAD (coronary artery disease): no chest pain reported to family prior to becoming aphasic aspirin NC (8) CKD (chronic kidney disease) stage 3, GFR 30-59 ml/min: Cr is stable with calculated GFR at baseline range monitor tomorrow (9) HTN (hypertension): hold oral agents, he did not take any BP medications on 05/17 provide IV fluids to maintain volume status, very sensitive to low normal blood pressures (10) Dyslipidemia: LDL low at 63, HDL 37 hold statin due to allergy levels at goal anyway (11) History of ischemic cardiomyopathy: echo here shows preserved EF, mild LVH, no right to left shunt on bubble study examines euvolemic give IV fluids as he cannot drink safely Spent time discussing with specialists Total Time Total Time Spent Total Time Spent (In Minutes): 35 Total Time Includes: Examination of the Patient, Discharge Planning and Medication Reconciliation Discharge Plan Discharge Items Patient Disposition: Transfer [facility] Reason For Visit: ACUTE STROKE Discharge Diagnosis: Acute stroke Activity: As commented below Activity Comment: Will need physical therapy/ r hemiparesis Non-emergency contact: Primary Care Provider Call non-emergency contact if: you have any medication questions Follow-up/Referrals: Ever Perez D.O. [Primary Care Provider] - Diet: Carb Consistent or DM2 Diet Texture: Pureed (blended smooth) Addtl Attending Provider Instructions: You were diagnosed with a large stroke. Will recommend rehab to see if you are able to improve. May transition to hospice if no improvement, which sadly is likely given the extent of the stroke Risk Factors for Stroke: You can reduce your chances of stroke by working with your medical provider to adopt a healthy lifestyle. Some specific ways to lower your chance of stroke are: * If you are a smoker, now is the time to stop smoking cigarettes * If you are diabetic, improve the control of your blood sugars * Avoid excessive amounts of alcohol * Control high blood pressure * Lose weight if you are overweight * Be sure to lead an active lifestyle * Eat a healthy diet low in salt, cholesterol and fat You should know about other risk factors for stroke that you are unable to control. These include: * Age 55 years or older * Male gender * Certain racial groups: , or / * Family History of Stroke, Mini stroke or Heart Attack * Sickle Cell Disease Follow Up: It is important for you to keep your follow up appointments with your medical provider. Who to Call and When: Medical Emergencies: Call 911 immediately if you experience any of the following warning signs and symptoms of Stroke: * Sudden numbness or weakness of the face, arm or leg, especially on one side of the body * Sudden confusion, trouble speaking or understanding * Sudden trouble seeing in one or both eyes * Sudden trouble walking, dizziness, loss of balance or coordination * Sudden severe headache with no cause Do not delay calling 911 if you experience any warning signs or symptoms of a stroke. Delay in seeking medical attention may affect what treatments can be given to you. . Pending Studies at Discharge: No Stand-Alone Forms: My [facility] Skilled Items Patient informed of condition?: Yes DNR: Yes Discharge Level of Care: Skilled Communicable Disease: No Discharge Prognosis: Stable Lines: None Urinary Catheter: No Medications and DC Order Prescriptions: Continued finasteride 5 mg tablet 5 mg PO DAILY Qty: 30 RF: 0 tamsulosin 0.4 mg capsule 0.4 mg PO DAILY RF: 0 polyethylene glycol 3350 17 gram/dose powder 17 gm PO DAILY Qty: 1 RF: 0 Ozempic 0.25 mg or 0.5 mg(2 mg/1.5 mL) pen injector 0.25 mg SQ WEEKLY RF: 0 sildenafil (antihypertensive) 20 mg tablet 100 mg PO DAILY PRN (Reason: antihypertensive) Qty: 30 RF: 0 carvedilol 6.25 mg Tablet 6.25 mg PO BID RF: 0 potassium citrate 10 mEq (1,080 mg) Tablet Extended Release 10 meq PO DAILY RF: 0 triamcinolone acetonide 0.1 % Cream 1 applic TOPICAL BID RF: 0 aspirin 81 mg tablet,delayed release (DR/EC) 81 mg PO DAILY RF: 0 clopidogrel 75 mg tablet 75 mg PO DAILY RF: 0 glipizide 10 mg tablet 10 mg PO BID RF: 0 metformin 1,000 mg tablet 1,000 mg PO BID RF: 0 Discontinued hydrocodone-acetaminophen 5-325 mg tablet 1 tab PO Q6H PRN (Reason: Pain) RF: 0 temazepam 15 mg capsule 15 mg PO DAILY RF: 0 Discharge Orders: Discharge Order (Routine); Ordered 05/23/19 Ordered By: Earl Galvin Admission Data Admit Date/Time: 05/17/19 07:31 Attending Provider: Earl Galvin Admit Provider: Roddy Fajardo Primary Care Provider: Ever Perez Other Providers: Roddy Fajardo ; Cristobal Barney Emile Pierre III ; Leora Salcido Other Interventions: Discharge Summary Assessment (RN) Last Done: 05/23/19 12:49 DC Date/Time DO NOT enter until pt leaves facility: 05/23/19 15:10
== END 2019-05-23 15:10 | DRG 62 ==
LOC: ED 05:39 → SUATTDRO 07:31 → 1E 07:31 → 2S 05-18 23:08